=== PATIENT | female | born 1995 | race Caucasian/White ===

== ENCOUNTER 2023-01-31 10:17 | Emergency (ER) | payer OTHER, SELFPAY ==
--- NOTE | ~2023-01-31 | CT_ITS ---
EXAMINATION: CT ABDOMEN AND PELVIS WITH CONTRAST CLINICAL INFORMATION: Abdominal pain. Crohn's disease. COMPARISON: None TECHNIQUE: Multidetector volumetric images were obtained from the superior aspect of the liver through the pubic symphysis following administration 85 mL of Omnipaque 350 intravenous contrast. Sagittal and coronal reformatted images were obtained on the technologist's workstation. Oral contrast: No This CT examination was performed using dose optimization techniques as appropriate, variously including the following: *Automated exposure control *Adjustment of mA and/or kV according to patient size (this includes techniques or standardized protocols for targeted exams where dose is matched to indication/reason for exam; i.e. extremities or head) *Use of iterative reconstruction technique DLP: 819 mGy-cm FINDINGS: LUNG BASES: The visualized lung bases are unremarkable. LIVER, GALLBLADDER, AND BILIARY TREE: The liver is normal in size, shape, and attenuation. No focal hepatic lesion or biliary ductal dilatation is present. Multiple stones in the gallbladder lumen. No wall thickening or adjacent inflammation. PANCREAS: Unremarkable. SPLEEN: Unremarkable. ADRENAL GLANDS: Unremarkable. KIDNEYS AND URETERS: The kidneys are normal in size, shape, and attenuation. No hydronephrosis, hydroureter, or calculi seen. No perinephric stranding. BLADDER: Unremarkable. GASTROINTESTINAL TRACT: The stomach is unremarkable. Normal caliber small bowel. No obstruction. No wall thickening or adjacent inflammation. Normal appendix. No colonic wall thickening or acute inflammation. Prominent stool in the right hemicolon. Decompressed left colon. No free air or free fluid. ABDOMINAL WALL: No significant hernia is appreciated. LYMPH NODES: Normal. VASCULAR: Unremarkable. PELVIC VISCERA: Anteverted uterus. There is an IUD in place which appears rotated 180 degrees, with the bottom portion of the T positioned at the uterine fundus. There is a dominant right adnexal cyst measuring 4.9 cm. This appears simple. No specific follow-up recommended. OSSEOUS STRUCTURES: No acute or suspicious osseous abnormality. CT/CT abdomen pelvis w IV con IMPRESSION: 1. No acute findings in the abdomen or pelvis. No inflammatory changes. 2. Cholelithiasis without evidence for acute cholecystitis. 3. There is an IUD in place which is abnormal in positioning, appearing rotated 180 degrees. Fleischner guidelines were followed.
[2023-01-31 10:24] VITALS: BP 145/98; PULSE 103; RESP 22; TEMP 36; O2SAT 99; BMI 40.8
[2023-01-31] MEDS: Ondansetron ODT 4 MG TAB.RAPDIS TRANSLINGU (10:32)
--- OUTSIDE RECORDS SUMMARY | 2023-01-31 10:41 | XMS_ITS | Continuity of Care Document ---
:1995 Author Organization [facility] Address [address] [place] [address]- Care Team Providers Name Role Phone Ghanshyam GUERRA, Shady Primary Care Physician Encounter [facility] Date(s): 11/17/21 - 12/17/[address] [address]- Allergies, Adverse Reactions, Alerts No Known Allergies Immunizations Given and Recorded Vaccine Date Status Refusal Reason influenza virus vaccine, inactivated 09/18/21 Given influenza virus vaccine, inactivated 09/03/16 Given influenza virus vaccine, inactivated 08/22/15 Given influenza virus vaccine, inactivated 08/26/14 Given influenza virus vaccine, inactivated1 01/24/14 Given pneumococcal 13-valent vaccine 06/11/19 Given Hepatitis A Adult Vaccine 06/11/19 Given pneumococcal 23-valent vaccine 08/03/14 Given tetanus/diphtheria/pertussis, acel(Tdap)2 07/05/13 Given tetanus/diphtheria/pertussis, acel(Tdap) 05/23/07 Recorde d Varicella Virus Vaccine 06/19/09 Recorded Varicella Virus Vaccine 10/22/99 Recorded Meningitis C Vaccine (oldterm) 05/29/08 Recorded Human Papillomavirus Vaccine 01/23/08 Recorded Human Papillomavirus Vaccine 07/25/07 Recorded Human Papillomavirus Vaccine 05/23/07 Recorded Tetanus Toxoid 07/08/04 Recorded Measles/Mumps/Rubella Virus Vaccine 05/04/00 Recorded Measles/Mumps/Rubella Virus Vaccine 08/16/96 Recorded Poliovirus Vaccine, Inactivated 05/01/99 Recorded Poliovirus Vaccine, Inactivated 12/03/96 Recorded Poliovirus Vaccine, Inactivated 95 Recorded Poliovirus Vaccine, Inactivated 95 Recorded Poliovirus Vaccine, Inactivated 95 Recorded diphtheria/tetanus/pertussis, acel(DTaP) 05/01/99 Recorde d diphtheria/tetanus/pertussis, acel(DTaP) 12/03/96 Recorde d diphtheria/tetanus/pertussis, acel(DTaP) 95 Recorde d diphtheria/tetanus/pertussis, acel(DTaP) 95 Recorde d diphtheria/tetanus/pertussis, acel(DTaP) 95 Recorde d haemophilus b conjugate (PRP-T) vaccine 08/16/96 Recorded haemophilus b conjugate (PRP-T) vaccine 95 Recorded haemophilus b conjugate (PRP-T) vaccine 95 Recorded haemophilus b conjugate (PRP-T) vaccine 95 Recorded hepatitis B pediatric vaccine 07/04/96 Recorded hepatitis B pediatric vaccine 95 Recorded hepatitis B pediatric vaccine 95 Recorded 1Result Comment: [01/24/2014] vaccine given by Esperanza Stephens2Aradhames Note: VIS given-12/14/2011 Medications albuterol CFC free 90 mcg/inh inhalation aerosol 2, puffs, Inhalation, 4 times a day, PRN, # 1 each, Refills 1, Tot. Refills 1, Maintenance, :44:00 EDT, Aerosol, Route to Pharmacy Electronically, [id number], [facility]/pharmacy #[id number], 163, cm, 09/18/21 9:36:00 EDT, Viktor... Start Date: 09/18/21 Stop Date: 11/17/21 Status: Orderedferrous sulfate 325 mg oral tablet 1 tablet = 325 mg, By Mouth, Daily, # 90 tablet, 3 Refills, Maintenance, 04/23/21 11:53:00 EDT, Tablet, [facility]/pharmacy #[id number], 163, cm, 03/17/21 13:26:00 EDT, Height, 103.2, kg, 09/05/20 15:56:00 EDT, DryWeight Start Date: 04/23/21 Status: OrderedHumira Pen 40 mg/0.4 mL subcutaneous kit = 40 mg, Subcutaneous Injection, Every 14 days, # 2 each, 8 Refills, Maintenance, 08/07/21 14:11:00 EDT, [facility], Partial fill upon patient request if the prescription is for a schedule II opioid drug., 163, cm, 06/10/21 14:01:00 E... Start Date: 08/07/21 Status: OrderedRyanmi Pen Crohns/Ulcer Colitis/Hidradenitis Suppurativa Starterr Pack 80 mg/0.8 mL subcutaneous ki See Instructions, 160mg on day 1 then 80mg on day 15 then 40mg q14 days starting day 29, # 3 each, 0Refills, Maintenance, 03/24/21 13:38:00 EDT, [facility], Partial fill upon patient request if the prescription is for a schedule II o... Start Date: 03/24/21 Status: OrderedInfliximab = 5 mg/kg, IV Infusion, Every 8 Weeks, 0 Refills, Maintenance, 01/13/21 11:46:00 EST, Partial fill upon patient request if the prescription is for a schedule II opioid drug. Start Date: 01/13/21 Status: Orderedmontelukast 10 mg oral tablet 10 mg, 1, tablet, By Mouth, Daily in PM, # 30 tablet, Refills 1, Tot. Refills 1, Maintenance, 05/27/20 9:58:00 EDT, Route to Pharmacy Electronically, [facility]/pharmacy #[id number], 163, cm, 05/02/20 11:25:00 EDT,Height, 100, kg, 05/02/20 8:23:00 EDT, Dry Weight Start Date: 05/27/20 Stop Date: 07/26/20 Status: Ordered Problem List Condition Effective Dates Status Health Status Informant Asthma-Mild intermittent(Confirmed)1 Active Obesity, Class II, BMI 35-39.9, no Active comorbidity(Confirmed) Contraception management(Confirmed) Active Crohn's disease(Confirmed)2, 3 Active History of delivery(Confirmed) Active History of pre-eclampsia(Confirmed) Active Urticaria(Confirmed) Active 1Exercise induced, as confirmed by PFTs on Gastroenterology 150:734 (2016): IBD and [id number] and Gynecology 126:401 (07/05) Social History Social History Type Response Smoking Status Never smoker entered on: 02/18/15 Sex
--- OUTSIDE RECORDS SUMMARY | 2023-01-31 10:41 | XMS_ITS | Continuity of Care Document ---
:1995 Author Organization [facility] Address [address] [place] [address]- Care Team Providers Name Role Phone Dandre Sheppard MD Primary Care Physician Encounter [facility] Date(s): 03/06/20 - 03/13/20 [facility] [address] [place] [address] Attending Physician: Apollo PAULA, Ankit Referring Physician: Dandre Sheppard MD Allergies, Adverse Reactions, Alerts Substance Reaction Severity Status NKA Active Immunizations Given and Recorded Vaccine Date Status Refusal Reason pneumococcal 13-valent vaccine 06/11/19 Given Hepatitis A Adult Vaccine 06/11/19 Given influenza virus vaccine, inactivated 09/03/16 Given influenza virus vaccine, inactivated 08/22/15 Given influenza virus vaccine, inactivated 08/26/14 Given influenza virus vaccine, inactivated1 01/24/14 Given pneumococcal 23-valent vaccine 08/03/14 Given tetanus/diphtheria/pertussis, [...] each, Refills 1, Tot. Refills 1, Maintenance, 199:30:53 EDT, Aerosol, Route to Pharmacy Electronically, [id number], [facility]/pharmacy #[id number] Start Date: 06/11/19 Stop Date: 08/10/19 Status: OrderedApri 0.15 mg-0.03 mg oral tablet 1 tablet, By Mouth, Daily, # 28 tablet, 2 Refills, Maintenance, 08/15/18 11:30:46 EDT, Tablet, 1 tablet By Mouth Daily Start Date: 08/15/18 Status: Orderedcopper intrauteral device See Instructions, Plz dispense one Paragard for insertion in office, # 1 applicator, 0 Refills, Maintenance, 05/22/18 10:04:00 EDT, Plz dispense one Paragard for insertion in office Start Date: 05/22/18 Status: Orderedferrous sulfate 325 mg oral tablet 1 tablet = 325 mg, By Mouth, 2 times a day, # 100 tablet, 1 Refills, Maintenance, 06/11/19 18:43:26 EDT, Tablet Start Date: 06/11/19 Stop Date: 09/19/19 Status: OrderedGolytely - oral powder for reconstitution 240 mL, By Mouth, Every 10 minutes, # 4,000 mL, 0 Refills, Maintenance, 07/31/19 10:59:16 EDT, REC Powder, 240 mL By Mouth Every 10 minutes Start Date: 07/31/19 Status: Orderedmontelukast 10 mg oral tablet 10 mg, 1, tablet, By Mouth, Daily in PM, # 30 tablet, Refills 1, Tot. Refills 1, Maintenance, 06/11/19 9:31:17 EDT, Route to Pharmacy Electronically, [id number], [facility]/pharmacy #[id number] Start Date: 06/11/19 Stop Date: 08/10/19 Status: Ordered Problem List Condition Effective Dates Status Health Status Informant Asthma-Mild intermittent(Confirmed)1 Active Contraception management(Confirmed) Active Crohn's disease(Confirmed)2, 3 Active History of delivery(Confirmed) Active History of pre-eclampsia(Confirmed) Active 1Exercise induced, as confirmed by PFTs on Gastroenterology 150:734 (2016): IBD and [id number] and Gynecology 126:401 (07/05) Social History Social History Type Response Smoking Status Never smoker entered on: 02/18/15 Sex
--- OUTSIDE RECORDS SUMMARY | 2023-01-31 10:42 | XMS_ITS | Continuity of Care Document ---
:1995 Author Organization [facility] Address [address] [place] [address]- Care Team Providers Name Role Phone Ghanshyam GUERRA, Shady Primary Care Physician Encounter [facility] Date(s): 02/22/22 - 03/24/[address] [address]- Attending Physician: Sebastián Zavala Admitting Physician: AdmSebastián hammer Referring Physician: AdmtrSebastián Allergies, Adverse Reactions, Alerts No Known Allergies [...] each, Refills 1, Tot. Refills 1, Maintenance, 02/22/2210:36:00 EDT, Aerosol, Route to Pharmacy Electronically, [id number], [facility]/pharmacy #[id number], 163, cm, 02/22/22 10:24:00 EDT, Hei... Start Date: 02/22/22 Stop Date: 04/23/22 Status: Orderedferrous sulfate 325 mg oral tablet 1 tablet = 325 mg, By Mouth, Daily, # 90 tablet, 3 Refills, Maintenance, 04/23/21 11:53:00 EDT, Tablet, [facility]/pharmacy #[id number], 163, cm, 03/17/21 13:26:00 EDT, Height, 103.2, kg, 09/05/20 15:56:00 EDT, DryWeight Start Date: 04/23/21 Status: OrderedHumira Pen 40 mg/0.4 mL subcutaneous kit = 40 mg, Subcutaneous Injection, Every 14 days, # 2 each, 8 Refills, Maintenance, 08/07/21 14:11:00 EDT, [facility], Partial fill upon patient request if the prescription is for a schedule II opioid drug., 163, cm, 06/10/21 14:01:00 E... Start Date: 08/07/21 Status: OrderedHumira Pen Crohns/Ulcer Colitis/Hidradenitis Suppurativa Starterr Pack 80 mg/0.8 mL subcutaneous ki See Instructions, 160mg on day 1 then 80mg on day 15 then 40mg q14 days starting day 29, # 3 each, 0Refills, Maintenance, 03/24/21 13:38:00 EDT, [facility], Partial fill upon patient [...] 05/27/20 9:58:00 EDT, Route to Pharmacy Electronically, [facility]/pharmacy #[id number], 163, cm, 05/02/20 11:25:00 EDT,Height, 100, kg, 05/02/20 8:23:00 EDT, Dry Weight Start Date: 05/27/20 Stop Date: 07/26/20 Status: Ordered Problem List Condition Effective Dates Status Health Status Informant Asthma-Mild intermittent(Confirmed)1 Active Obesity, Class II, BMI 35-39.9, no Active comorbidity(Confirmed) Contraception management(Confirmed) Active Crohn's disease(Confirmed)2, 3 Active History of delivery(Confirmed) Active History of pre-eclampsia(Confirmed) Active Obese class II(Confirmed) Active Urticaria(Confirmed) Active 1Exercise induced, as confirmed by PFTs on Gastroenterology 150:734 (2016): IBD and [id number] and Gynecology 126:401 (07/05) Social History Social History Type Response Smoking Status Never smoker entered on: 02/18/15 Sex
--- OUTSIDE RECORDS SUMMARY | 2023-01-31 10:42 | XMS_ITS | Continuity of Care Document ---
:1995 Author Organization [facility] Address [address] [place] [address]- Care Team Providers Name Role Phone Dandre Sheppard MD Primary Care Physician Encounter [facility] Date(s): 06/11/20 - 08/10/[address] [address]- [facility] Attending Physician: Ankit Bustillos MD Admitting Physician: Ankit Bustillos MD Referring Physician: Ankit Bustillos MD Allergies, Adverse Reactions, Alerts Substance Reaction [...] 199:30:53 EDT, Aerosol, Route to Pharmacy Electronically, [id number], [facility]/pharmacy #[id number] Start Date: 06/11/19 Stop Date: 08/10/19 Status: OrderedApri 0.15 mg-0.03 mg oral tablet 1 tablet, By Mouth, Daily, # 28 tablet, 2 Refills, Maintenance, 08/15/18 11:30:46 EDT, Tablet, 1 tablet By Mouth Daily Start Date: 08/15/18 Status: OrderedColace 2-in-1 50 mg-8.6 mg oral tablet 1 tablet, By Mouth, Daily at bedtime, # 90 tablet, 0 Refills, Maintenance, 03/18/20 13:49:00 EDT, [facility]/pharmacy #[id number], 1 tablet By Mouth Daily at bedtime, 163, cm, 12/17/19 7:51:00 EST, Height, 100, kg,12/17/19 7:51:00 EST, Dry Weight Start Date: 03/18/20 Status: OrderedColace sodium 100 mg oral capsule 100 mg, 1, capsule, By Mouth, Daily, # 30 capsule, Refills 0, Tot. Refills 0, Maintenance, 03/18/20 13:41:00 EDT, Route to Pharmacy Electronically, [facility]/pharmacy #[id number], 163, cm, 12/17/19 7:51:00 EST, Height, 100, kg, 12/17/19 7:51:00 EST, Dry Weight Start Date: 03/18/20 Status: Orderedcopper intrauteral device See Instructions, Plz dispense one Paragard for insertion in office, # 1 applicator, 0 Refills, Maintenance, 05/22/18 10:04:00 EDT, Plz dispense one Paragard for insertion in office Start Date: 05/22/18 Status: Orderedferrous sulfate 325 mg oral tablet 1 tablet = 325 mg, By Mouth, Daily, # 90 tablet, 1 Refills, Maintenance, 03/18/20 13:41:00 EDT, Tablet, [facility]/pharmacy #[id number], 163, cm, 12/17/19 7:51:00 EST, Height, 100, kg, 12/17/19 7:51:00 EST, Dry Weight Start Date: 03/18/20 Stop Date: 06/26/20 Status: OrderedGolytely - oral powder for reconstitution [...] 05/27/20 9:58:00 EDT, Route to Pharmacy Electronically, [facility]/pharmacy #[id number], 163, cm, 05/02/20 11:25:00 EDT,Height, 100, kg, 05/02/20 8:23:00 EDT, Dry Weight Start Date: 05/27/20 Stop Date: 07/26/20 Status: Ordered Problem List Condition Effective Dates Status Health Status Informant Asthma-Mild intermittent(Confirmed)1 Active Contraception management(Confirmed) Active Crohn's disease(Confirmed)2, 3 Active History of delivery(Confirmed) Active History of pre-eclampsia(Confirmed) Active 1Exercise induced, as confirmed by PFTs on Gastroenterology 150:734 (2016): IBD and [id number] and Gynecology 126:401 (07/05) Social History Social History Type Response Smoking Status Never smoker entered on: 02/18/15 Sex
--- OUTSIDE RECORDS SUMMARY | 2023-01-31 10:42 | XMS_ITS | Continuity of Care Document ---
:1995 Author Organization [facility] Address [address] [place] [address]- Care Team Providers Name Role Phone Valarie PAULA, Dandre Seymour Primary Care Physician Encounter [facility] Date(s): 06/12/20 - 07/12/[address] [address]- [facility] Allergies, Adverse Reactions, Alerts Substance Reaction Severity [...] 1Result Comment: [01/24/2014] vaccine given by Esperanza Stephens2Admin Note: VIS given-12/14/2011 Medications albuterol CFC free 90 mcg/inh inhalation aerosol 2, puffs, Inhalation, 4 times a day, PRN, # 1 each, Refills 1, Tot. Refills 1, Maintenance, 199:30:53 EDT, Aerosol, Route to Pharmacy Electronically, [id number], [facility]/pharmacy #[id number] Start Date: 06/11/19 Stop Date: 08/10/19 Status: OrderedApri 0.15 mg-0.03 mg oral tablet 1 tablet, By Mouth, Daily, # 28 tablet, 2 Refills, Maintenance, 08/15/18 11:30:46 EDT, Tablet, 1 tablet By Mouth Daily Start Date: 08/15/18 Status: OrderedColace 2-in-1 50 mg-8.6 mg oral tablet 1 tablet, By Mouth, Daily at bedtime, # 90 tablet, 0 Refills, Maintenance, 03/18/20 13:49:00 EDT, [facility]/pharmacy #[id number], 1 tablet By Mouth Daily at bedtime, 163, cm, 12/17/19 7:51:00 EST, Height, 100, kg,12/17/19 7:51:00 EST, Dry Weight Start Date: 03/18/20 Status: OrderedColace sodium 100 mg oral capsule 100 mg, 1, capsule, By Mouth, Daily, # 30 capsule, Refills 0, Tot. Refills 0, Maintenance, 03/18/20 13:41:00 EDT, [id number], 163, cm, 12/17/19 7:51:00 EST, Height, [...] 1 Refills, Maintenance, 03/18/20 13:41:00 EDT, Tablet, [facility]/pharmacy #[id number], 163, cm, 12/17/19 7:51:00 EST, Height, [...] 05/27/20 9:58:00 EDT, Route to Pharmacy Electronically, [facility]/pharmacy #[id number], 163, cm, 05/02/20 11:25:00 EDT,Height, 100, kg, 05/02/20 8:23:00 EDT, Dry Weight Start Date: 05/27/20 Stop Date: 07/26/20 Status: Ordered Problem List Condition Effective Dates Status Health Status Informant Asthma-Mild intermittent(Confirmed)1 Active Contraception management(Confirmed) Active Crohn's disease(Confirmed)2, 3 Active History of delivery(Confirmed) Active History of pre-eclampsia(Confirmed) Active 1Exercise induced, as confirmed by PFTs on Gastroenterology 150:734 (2015): IBD and zdoelsskz1Pihwscpvtb and Gynecology 126:401 (07/05) Social History Social History Type Response Smoking Status Never smoker entered on: 02/18/15 Sex
--- OUTSIDE RECORDS SUMMARY | 2023-01-31 10:42 | XMS_ITS | Continuity of Care Document ---
:1995 Author Organization [facility] Address [address] [place] [address]- Care Team Providers Name Role Phone Ghanshyam GUERRA, Shady Primary Care Physician Encounter [facility] Date(s): 11/17/21 - 12/17/[address] [address]- Allergies, Adverse Reactions, Alerts No Known Allergies [...] 1Result Comment: [01/24/2014] vaccine given by Esperanza Alvarez Note: VIS given-12/14/2011 Medications albuterol CFC free 90 mcg/inh inhalation aerosol 2, puffs, Inhalation, 4 times a day, PRN, # 1 each, Refills 1, Tot. Refills 1, Maintenance, :44:00 EDT, Aerosol, Route to Pharmacy Electronically, [id number], [facility]/pharmacy #[id number], 163, cm, 09/18/21 9:36:00 EDT, Viktor... Start Date: 09/18/21 Stop Date: 11/17/21 Status: Orderedferrous sulfate 325 mg oral tablet 1 tablet = 325 mg, By Mouth, Daily, # 90 tablet, 3 Refills, Maintenance, 04/23/21 11:53:00 EDT, Tablet, [facility]/pharmacy #[id number], 163, cm, 03/17/21 13:26:00 EDT, Height, 103.2, kg, 09/05/20 15:56:00 EDT, DryWeight Start Date: 04/23/21 Status: OrderedHumira Pen 40 mg/0.4 mL subcutaneous kit = 40 mg, Subcutaneous Injection, Every 14 days, # 2 each, 8 Refills, Maintenance, 08/07/21 14:11:00 EDT, [facility], Partial fill upon patient request if the prescription is for a schedule II opioid drug., 163, cm, 06/10/21 14:01:00 E... Start Date: 08/07/21 Status: OrderedHumi Pen Crohns/Ulcer Colitis/Hidradenitis Suppurativa Starterr Pack 80 mg/0.8 mL subcutaneous ki See Instructions, 160mg on day 1 then 80mg on day 15 then 40mg q14 days starting day 29, # 3 each, 0Refills, Maintenance, 03/24/21 13:38:00 EDT, [facility], Partial fill upon patient [...] 05/27/20 9:58:00 EDT, Route to Pharmacy Electronically, [facility]/pharmacy #[id number], 163, cm, 05/02/20 11:25:00 EDT,Height, 100, [...] PFTs on Gastroenterology 150:734 (2016): IBD and [id number] and Gynecology 126:401 (07/05) Social History Social History Type Response Smoking Status Never smoker entered on: 02/18/15 Sex
--- OUTSIDE RECORDS SUMMARY | 2023-01-31 10:42 | XMS_ITS | Continuity of Care Document ---
:1995 Author Organization [facility] Address [address] [place] [address]- Care Team Providers Name Role Phone Shady Morrissey NP Primary Care Physician Encounter [facility] [place] Date(s): 10/18/22 - 11/17/22 [facility] [address] [place] [address]- Attending Physician: Sebastián Zavala Admitting Physician: Sebastián Zavala Referring Physician: Sebastián Zavala Allergies, Adverse Reactions, Alerts No Known Allergies [...] 02/22/2210:36:00 EDT, Aerosol, Route to Pharmacy Electronically, [id number], [facility]/pharmacy #[id number], 163, cm, 02/22/22 10:24:00 EDT, Hei... Start Date: 02/22/22 Stop Date: 04/23/22 Status: Orderedferrous sulfate 325 mg oral tablet 1 tablet = 325 mg, By Mouth, Daily, # 90 tablet, 3 Refills, Maintenance, 04/23/21 11:53:00 EDT, Tablet, [facility]/pharmacy #[id number], 163, cm, 03/17/21 13:26:00 EDT, Height, 103.2, kg, 09/05/20 15:56:00 EDT, DryWeight Start Date: 04/23/21 Status: OrderedHumira Pen 40 mg/0.4 mL subcutaneous kit = 40 mg, Subcutaneous Injection, Every 14 days, # 2 each, 3 Refills, Maintenance, 07/22/22 17:42:00 EDT, [facility], Partial fill upon patient request if the prescription is for a schedule II opioid drug., 163, cm, 02/22/22 10:24:00 E... Start Date: 07/22/22 Status: OrderedHumira Pen Crohns/Ulcer Colitis/Hidradenitis Suppurativa Starterr Pack 80 mg/0.8 mL subcutaneous ki See Instructions, 160mg on day 1 then 80mg on day 15 then 40mg q14 days starting day 29, # 3 each, 0Refills, Maintenance, 03/24/21 13:38:00 EDT, [facility], Partial fill upon patient [...] 05/27/20 9:58:00 EDT, Route to Pharmacy Electronically, [facility]/pharmacy #[id number], 163, cm, 05/02/20 11:25:00 EDT,Height, 100, kg, 05/02/20 8:23:00 EDT, Dry Weight Start Date: 05/27/20 Stop Date: 07/26/20 Status: Orderedomeprazole 20 mg oral enteric coated capsule 1 capsule = 20 mg, By Mouth, Daily, # 30 capsule, 0 Refills, Maintenance, 09/16/22 17:40:00 EDT, EC Capsule, [facility]/pharmacy #[id number], Partial fill upon patient request if the prescription is for a schedule II opioid drug., 163, cm, 09/16/22 17:38:00 EDT, H... Start Date: 09/16/22 Stop Date: 10/16/22 Status: Ordered Problem List Condition Confirmation Course Effective Dates Status Health I nformant Status Asthma-Mild Confirmed Active intermittent1 Obesity, Class II, Confirmed Active BMI 35-39.9, no comorbidity Contraception Confirmed Active management Crohn's disease2, 3 Confirmed Active History of Confirmed Active delivery History of Confirmed Active pre-eclampsia Obese class II Confirmed Active Urticaria Confirmed Active 1Exercise induced, as confirmed by PFTs on Gastroenterology 150:734 (2016): IBD and lnsudlfwn1Remczfbhoz and Gynecology 126:401 (07/05) Vital Signs Most recent to oldest [Reference Range]: 1 2 Oxygen Saturation [94-100 %] 100 % 100 % (07/21/17 11:07 AM) (07/21/17 8:06 AM) Pulse Rate [55-90 bpm] 91 bpm 94 bpm *H* *H* (07/21/17 11:07 AM) (07/21/17 8:06 AM) Blood Pressure [90-138/55-84 mm Hg] 117/70 mm Hg 124/ 83 mm Hg (07/21/17 11:07 AM) (07/21/17 8:06 AM) Respiratory Rate [16-30 br/min] 20 br/min 20 br/mi n (07/21/17 11:07 AM) (07/21/17 8:06 AM) Temperature [96.8-100.4 DegF] 97.9 DegF 98.2 DegF (07/21/17 11:07 AM) (07/21/17 8:06 AM) Mode of Delivery (Oxygen) Room air Room air (07/21/17 11:07 AM) (07/21/17 8:06 AM) Blood pressure sites Arm, right Arm, right (07/21/17 11:07 AM) (07/21/17 8:06 AM) Temperature Route Oral Oral (07/21/17 11:07 AM) (07/21/17 8:06 AM) Social History Social History Type Response Smoking Status Never smoker entered on: 02/18/15 Sex Note Event Display: Non BH Lab Results Authored Date: Patient Care team information Care Team PersonnelName: Shady Morrissey NP Position: [facility] Associate Professional Member Role: PCP Address: Address: [address] [place] [address] Name: Tiffanie Delaney RN Position: S RN Member Role: Primary Care Nurse Name: Lynn Blair LPN Position: [facility] OB RN Member Role: Primary Care Nurse Name: Cherie Vences RN Position: [facility] RN Supv Member Role: Primary Care Nurse Name: Farzana Cruz Position: [facility] OB RN Member Role: Primary Care Nurse Name: Vita Jacobo RN Position: S RN Member Role: Primary Care Nurse Name: Alex Diaz Position: S RN Member Role: Primary Care Nurse Name: Melany Brenner RN Position: [facility] RN Member Role: Primary Care Nurse Name: Helen Johnson RN Position: [facility] RN Member Role: Primary Care Nurse Care Team Related PersonsName: MARVA SINGH Address: [id number] Address: [address] [place] [address] [place] Name: ASPEN RODRÍGUEZ Address: home [place] [id number] Name: VITA BUNN Address: home [address] [address]
--- OUTSIDE RECORDS SUMMARY | 2023-01-31 10:42 | XMS_ITS | Continuity of Care Document ---
:1995 Author Organization [facility] Address [address] [place] [address]- Care Team Providers Name Role Phone Valarie PAULA, Dandre Seymour Primary Care Physician Encounter [facility] Date(s): 11/23/19 - 02/24/[address] [address]- [facility] Attending Physician: Michael Sheth MD Admitting Physician: Michael Sheth MD Referring Physician: Michael Sheth MD Allergies, Adverse Reactions, Alerts Substance Reaction [...] 199:30:53 EDT, Aerosol, Route to Pharmacy Electronically, [id number], [facility]/pharmacy #[id number] Start Date: 06/11/19 Stop Date: 08/10/19 [...] 06/11/19 9:31:17 EDT, Route to Pharmacy Electronically, [id number], [facility][id number] Start Date: 06/11/19 Stop Date: 08/10/19 Status: Ordered Problem List Condition Effective Dates Status Health Status Informant Asthma-Mild intermittent(Confirmed)1 Active Contraception management(Confirmed) Active Crohn's disease(Confirmed)2, 3 Active History of delivery(Confirmed) Active History of pre-eclampsia(Confirmed) Active 1Exercise induced, as confirmed by PFTs on Gastroenterology 150:734 (2016): IBD and zsdgzqvsw1Izckngvdpl and Gynecology 126:401 (07/05) Social History Social History Type Response Smoking Status Never smoker entered on: 02/18/15 Sex
--- OUTSIDE RECORDS SUMMARY | 2023-01-31 10:42 | XMS_ITS | Continuity of Care Document ---
:1995 Author Organization [facility] Address [address] [place] [address]- Care Team Providers Name Role Phone Ghanshyam UGERRA, Shady Primary Care Physician Encounter [facility] Date(s): 03/25/21 - 04/24/[address] [address]- Allergies, Adverse Reactions, Alerts Substance Reaction Severity [...] 199:30:53 EDT, Aerosol, Route to Pharmacy Electronically, [id number], [facility]/pharmacy #[id number] Start Date: 06/11/19 Stop Date: 08/10/19 Status: OrderedApri 0.15 mg-0.03 mg oral tablet 1 tablet, By Mouth, Daily, # 28 tablet, 2 Refills, Maintenance, 08/15/18 11:30:46 EDT, Tablet, 1 tablet By Mouth Daily Start Date: 08/15/18 Status: OrderedColace 2-in-1 50 mg-8.6 mg oral tablet 1 tablet, By Mouth, Daily at bedtime, # 90 tablet, 0 Refills, Maintenance, 03/18/20 13:49:00 EDT, [facility]/pharmacy #[id number], 1 tablet By Mouth Daily at bedtime, 163, cm, 12/17/19 7:51:00 EST, Height, 100, kg,12/17/19 7:51:00 EST, Dry Weight Start Date: 03/18/20 Status: OrderedColace sodium 100 mg oral capsule 100 mg, 1, capsule, By Mouth, Daily, # 30 capsule, Refills 0, Tot. Refills 0, Maintenance, 03/18/20 13:41:00 EDT, Route to Pharmacy Electronically, [facility]/pharmacy #[id number], 163, cm, 12/17/19 7:51:00 EST, Height, [...] 3 Refills, Maintenance, 04/23/21 11:53:00 EDT, Tablet[id number] 163, cm, 03/17/21 13:26:00 EDT, Height, 103.2, kg, 09/05/20 15:56:00 EDT, DryWeight Start Date: 04/23/21 Status: OrderedHumira Pen 40 mg/0.4 mL subcutaneous kit = 40 mg, Subcutaneous Injection, Every 14 days, # 2 each, 5 Refills, Maintenance, 03/24/21 13:38:00 EDT, [facility], Partial fill upon patient request if the prescription is for a schedule II opioid drug., 163, cm, 03/17/21 13:26:00 E... Start Date: 03/24/21 Status: OrderedHumira Pen Crohns/Ulcer Colitis/Hidradenitis Suppurativa Starterr Pack 80 mg/0.8 mL subcutaneous ki See Instructions, 160mg on day 1 then 80mg on day 15 then 40mg q14 days starting day 29, # 3 each, 0Refills, Maintenance, 03/24/21 13:38:00 EDT, [facility], Partial fill upon [...] 05/27/20 9:58:00 EDT, Route to Pharmacy Electronically, [facility]/pharmacy #[id number], 163, cm, 05/02/20 11:25:00 EDT,Height, 100, kg, 05/02/20 8:23:00 EDT, Dry Weight Start Date: 05/27/20 Stop Date: 07/26/20 Status: Ordered Problem List Condition Effective Dates Status Health Status Informant Asthma-Mild intermittent(Confirmed)1 Active Contraception management(Confirmed) Active Crohn's disease(Confirmed)2, 3 Active History of delivery(Confirmed) Active History of pre-eclampsia(Confirmed) Active Urticaria(Confirmed) Active 1Exercise induced, as confirmed by PFTs on Gastroenterology 150:734 (2016): IBD and xmmrjxjkn1Xspweqaaon and Gynecology 126:401 (07/05) Social History Social History Type Response Smoking Status Never smoker entered on: 02/18/15 Sex
--- OUTSIDE RECORDS SUMMARY | 2023-01-31 10:42 | XMS_ITS | Continuity of Care Document ---
:1995 Author Organization [facility] Address [address] [place] [address]- Care Team Providers Name Role Phone Ghanshyam GUERRA, Shady Primary Care Physician Encounter [facility] Date(s): 06/12/21 - 07/12/21 [facility] [address] [place] [address]- Allergies, Adverse Reactions, Alerts Substance Reaction Severity [...] each, Refills 1, Tot. Refills 1, Maintenance, :30:53 EDT, Aerosol, Route to Pharmacy Electronically, [id number], [facility]/pharmacy #[id number] Start Date: 06/11/19 Stop Date: 08/10/19 Status: Orderedferrous sulfate 325 mg oral tablet 1 tablet = 325 mg, By Mouth, Daily, # 90 tablet, 3 Refills, Maintenance, 04/23/21 11:53:00 EDT, Tablet, [facility]/pharmacy #[id number], 163, cm, 03/17/21 13:26:00 EDT, Height, 103.2, kg, 09/05/20 15:56:00 EDT, DryWeight Start Date: 04/23/21 Status: OrderedHumira Pen 40 mg/0.4 mL subcutaneous kit = 40 mg, Subcutaneous Injection, Every 14 days, # 2 each, 5 Refills, Maintenance, 03/24/21 13:38:00 EDT, [facility] [...] 05/27/20 9:58:00 EDT, Route to Pharmacy Electronically, [facility]/pharmacy #[id number], 163, cm, 05/02/20 11:25:00 EDT,Height, 100, kg, 05/02/20 8:23:00 EDT, Dry Weight Start Date: 05/27/20 Stop Date: 07/26/20 Status: Ordered Problem List Condition Effective Dates Status Health Status Informant Asthma-Mild intermittent(Confirmed)1 Active Contraception management(Confirmed) Active Crohn's disease(Confirmed)2, 3 Active History of delivery(Confirmed) Active History of pre-eclampsia(Confirmed) Active Urticaria(Confirmed) Active 1Exercise induced, as confirmed by PFTs on Gastroenterology 150:734 (2016): IBD and vjytzsvps4Ylzuqcedtl and Gynecology 126:401 (07/05) Social History Social History Type Response Smoking Status Never smoker entered on: 02/18/15 Sex
--- OUTSIDE RECORDS SUMMARY | 2023-01-31 10:42 | XMS_ITS | Continuity of Care Document ---
:1995 Author Organization [facility] Address [address] [place] [address]- Care Team Providers Name Role Phone Ghanshyam GUERRA, Shady Primary Care Physician Encounter [facility] Date(s): 06/10/21 - 07/10/[address] [address]- Attending Physician: Sebastián Zavala Admitting Physician: AdmtrSebastián Referring Physician: Admtr, Sebastián Allergies, Adverse Reactions, Alerts Substance Reaction Severity [...] :30:53 EDT, Aerosol, Route to Pharmacy Electronically, [id number], [facility]/pharmacy #[id number] Start Date: 06/11/19 Stop Date: 08/10/19 Status: Orderedferrous sulfate 325 mg oral tablet 1 tablet = 325 mg, By Mouth, Daily, # 90 tablet, 3 Refills, Maintenance, 04/23/21 11:53:00 EDT, Tablet, [facility]/pharmacy #[id number], 163, cm, 03/17/21 13:26:00 EDT, Height, 103.2, kg, 09/05/20 15:56:00 EDT, DryWeight Start Date: 04/23/21 Status: OrderedHumira Pen 40 mg/0.4 mL subcutaneous kit = 40 mg, Subcutaneous Injection, Every 14 days, # 2 each, 5 Refills, Maintenance, 03/24/21 13:38:00 EDT, [facility], Partial fill upon patient request [...] each, 0Refills, Maintenance, 03/24/21 13:38:00 EDT, [facility], Partial fill upon patient [...] 05/27/20 9:58:00 EDT, Route to Pharmacy Electronically, [facility]/pharmacy #[id number], 163, cm, 05/02/20 [...] PFTs on Gastroenterology 150:734 (2016): IBD and ejrusknku1Ntgojppzgs and Gynecology 126:401 (07/05) Social History Social History Type Response Smoking Status Never smoker entered on: 02/18/15 Sex
--- OUTSIDE RECORDS SUMMARY | 2023-01-31 10:42 | XMS_ITS | Continuity of Care Document ---
:1995 Author Organization [facility] Address [address] [place] [address]- Care Team Providers Name Role Phone Shady Morrissey NP Primary Care Physician Encounter [facility] Date(s): 01/13/21 - 02/12/21 [facility] [address] [place] [address] Attending Physician: Sebastián Zavala Admitting Physician: Sebastián Zavala Referring Physician: AdmtrSebastián Allergies, Adverse Reactions, Alerts Substance Reaction Severity [...] :30:53 EDT, Aerosol, Route to Pharmacy Electronically, [id number], [facility]/pharmacy #[id number] Start Date: 06/11/19 Stop Date: 08/10/19 Status: OrderedApri 0.15 mg-0.03 mg oral tablet 1 tablet, By Mouth, Daily, # 28 tablet, 2 Refills, Maintenance, 08/15/18 11:30:46 EDT, Tablet, 1 tablet By Mouth Daily Start Date: 08/15/18 Status: OrderedColace 2-in-1 50 mg-8.6 mg oral tablet 1 tablet, By Mouth, Daily at bedtime, # 90 tablet, 0 Refills, Maintenance, 03/18/20 13:49:00 EDT, [facility]/pharmacy #[id number], 1 tablet By Mouth Daily at bedtime, 163, cm, 12/17/19 7:51:00 EST, Height, 100, kg,12/17/19 7:51:00 EST, Dry Weight Start Date: 03/18/20 Status: OrderedColace sodium 100 mg oral capsule 100 mg, 1, capsule, By Mouth, Daily, # 30 capsule, Refills 0, Tot. Refills 0, Maintenance, 03/18/20 13:41:00 EDT, Route to Pharmacy Electronically, [facility]/pharmacy #[id number], 163, cm, 12/17/19 7:51:00 EST, [...] Refills, Maintenance, 03/18/20 13:41:00 EDT, Tablet, [facility]/pharmacy #[id number], 163, cm, 12/17/19 7:51:00 EST, Height, 100, kg, 12/17/19 7:51:00 EST, Dry Weight Start Date: 03/18/20 Stop Date: 06/26/20 Status: OrderedInfliximab = 5 mg/kg, IV Infusion, [...] 9:58:00 EDT, Route to Pharmacy Electronically, [facility]/pharmacy #[id number], 163, cm, 05/02/20 11:25:00 EDT,Height, 100, kg, 05/02/20 8:23:00 EDT, Dry Weight Start Date: 05/27/20 Stop Date: 07/26/20 Status: Ordered Problem List Condition Effective Dates Status Health Status Informant Asthma-Mild intermittent(Confirmed)1 Active Contraception management(Confirmed) Active Crohn's disease(Confirmed)2, 3 Active History of delivery(Confirmed) Active History of pre-eclampsia(Confirmed) Active 1Exercise induced, as confirmed by PFTs on Gastroenterology 150:734 (2016): IBD and [id number] and Gynecology 126:401 (07/05) Vital Signs Most [...]
--- OUTSIDE RECORDS SUMMARY | 2023-01-31 10:42 | XMS_ITS | Continuity of Care Document ---
:1995 Author Organization [facility] Address [address] [place] [address]- Care Team Providers Name Role Phone Dandre Sheppard MD Primary Care Physician [place] [facility] [place]s): 03/18/20 - 03/25/20 [facility] [address] [place] [address]- [facility] Attending Physician: Apollo PAULA, Ankit Referring Physician: [...] 1Result Comment: [01/24/2014] vaccine given by Esperanza Stephens2Admilana Note: VIS given-12/14/2011 Medications albuterol CFC free 90 mcg/inh inhalation aerosol 2, puffs, Inhalation, 4 times a day, PRN, # 1 each, Refills 1, Tot. Refills 1, Maintenance, 199:30:53 EDT, Aerosol, Route to Pharmacy Electronically, [id number], [facility]/pharmacy #[id number] Start Date: 06/11/19 Stop [...] Refills, Maintenance, 03/18/20 13:49:00 EDT, [facility]/pharmacy #[id number], 1 tablet By Mouth Daily at bedtime, 163, cm, 12/17/19 7:51:00 EST, Height, 100, kg,12/17/19 7:51:00 EST, Dry Weight Start Date: 03/18/20 Status: OrderedColace sodium 100 mg oral capsule 100 mg, 1, capsule, By Mouth, Daily, # 30 capsule, Refills 0, Tot. Refills 0, Maintenance, 03/18/20 13:41:00 EDT, Route to Pharmacy Electronically, [facility]/pharmacy #[id number], 163, cm, 12/17/19 7:51:00 EST, Height, [...] Maintenance, 03/18/20 13:41:00 EDT, Tablet, [facility]/pharmacy #[id number], 163, cm, 12/17/19 7:51:00 EST, Height, [...] 06/11/19 9:31:17 EDT, Route to Pharmacy Electronically, [id number], [facility]/pharmacy #[id number] Start Date: 06/11/19 Stop Date: 08/10/19 Status: Ordered Problem List Condition Effective Dates Status Health Status Informant Asthma-Mild intermittent(Confirmed)1 Active Contraception management(Confirmed) Active Crohn's disease(Confirmed)2, 3 Active History of delivery(Confirmed) Active History of pre-eclampsia(Confirmed) Active 1Exercise induced, as confirmed by PFTs on Gastroenterology 150:734 (2016): IBD and kmxubwqff4Eudjjbgtvu and Gynecology 126:401 (07/05) Social History Social History Type Response Smoking Status Never smoker entered on: 02/18/15 Sex
--- OUTSIDE RECORDS SUMMARY | 2023-01-31 10:42 | XMS_ITS | Continuity of Care Document ---
:1995 Author Organization [facility] Address [address] [place] [address]- Care Team Providers Name Role Phone Shady Morrissey NP Primary Care Physician En[place] [facility] [place] Date[place]s): 07/20/22 - 11/17/22 [facility] [address] [place] [address]- Attending Physician: Michael Sheth MD Admitting Physician: Michael Sheth MD Referring Physician: Shady Morrissey NP Allergies, Adverse Reactions, Alerts No Known Allergies [...] 02/22/2210:36:00 EDT, Aerosol, Route to Pharmacy Electronically, [id number], [facility]/pharmacy #[id number], 163, cm, 02/22/22 10:24:00 EDT, Hei... Start Date: 02/22/22 Stop Date: 04/23/22 Status: Orderedferrous sulfate 325 mg oral tablet 1 tablet = 325 mg, By Mouth, Daily, # 90 tablet, 3 Refills, Maintenance, 04/23/21 11:53:00 EDT, Tablet, [facility]/pharmacy #[id number], 163, cm, 03/17/21 13:26:00 EDT, Height, 103.2, kg, 09/05/20 15:56:00 EDT, DryWeight Start Date: 04/23/21 Status: OrderedHumira Pen 40 mg/0.4 mL subcutaneous kit = 40 mg, Subcutaneous Injection, Every 14 days, # 2 each, 3 Refills, Maintenance, 07/22/22 17:42:00 EDT, [facility], Partial fill upon patient [...] 3 each, 0Refills, Maintenance, 03/24/21 13:38:00 EDT, [facility], Partial fill upon patient [...] 05/27/20 9:58:00 EDT, Route to Pharmacy Electronically, [facility]/pharmacy #[id number], 163, cm, 05/02/20 11:25:00 EDT,Height, 100, kg, 05/02/20 8:23:00 EDT, Dry Weight Start Date: 05/27/20 Stop Date: 07/26/20 Status: Orderedomeprazole 20 mg oral enteric coated capsule 1 capsule = 20 mg, By Mouth, Daily, # 30 capsule, 0 Refills, Maintenance, 09/16/22 17:40:00 EDT, EC Capsule, [facility]/pharmacy #[id number], Partial fill upon patient request if the [...] PFTs on Gastroenterology 150:734 (2016): IBD and qumenbhhb8Ljbsrvvnwy and Gynecology 126:401 (07/05) Social History Social History Type Response Smoking Status Never smoker entered on: 02/18/15 Sex Patient Care team information Care Team PersonnelName: Ghanshyam GUERRA, Shady Position: [facility] Associate Professional Member Role: PCP Address: Address: [address] [place] [address]- Name: Tiffanie Delaney RN Position: S RN Member Role: Primary Care Nurse Name: Lynn Blair LPN Position: [facility] OB RN Member Role: Primary Care Nurse Name: Cherie Vences RN Position: [facility] RN Supv Member Role: Primary Care Nurse Name: Farzana Cruz Position: [facility] OB RN Member Role: Primary Care Nurse Name: Vita Jacobo RN Position: S RN Member Role: Primary Care Nurse Name: Alex Diaz Position: S RN Member Role: Primary Care Nurse Name: Melany Brenner RN Position: S RN Member Role: Primary Care Nurse Name: Helen Johnson RN Position: [facility] RN Member Role: Primary Care Nurse Care Team Related PersonsName: MARVA SINGH Address: [address] Address: [address] [place] [address] [place] Name: RODRÍGUEZASPEN Address: home [place] [id number] Name: VITA BUNN Address: home [address] [address]
--- OUTSIDE RECORDS SUMMARY | 2023-01-31 10:42 | XMS_ITS | Continuity of Care Document ---
:1995 Author Organization [facility] Address [address] [place] [address]- Care Team Providers Name Role Phone Dandre Sheppard MD Primary Care Physician Encounter [facility] Date(s): 03/18/20 - 04/17/20 [facility] [address] [place] [address] [facility] Attending Physician: Sebastián Zavala Admitting Physician: AdmSebastián [...] 199:30:53 EDT, Aerosol, Route to Pharmacy Electronically, [id number], [facility]/pharmacy #[id number] Start Date: 06/11/19 Stop Date: 08/10/19 Status: OrderedApri 0.15 mg-0.03 mg oral tablet 1 tablet, By Mouth, Daily, # 28 tablet, 2 Refills, Maintenance, 08/15/18 11:30:46 EDT, Tablet, 1 tablet By Mouth Daily Start Date: 08/15/18 Status: OrderedColace 2-in-1 50 mg-8.6 mg oral tablet 1 tablet, By Mouth, Daily at bedtime, # 90 tablet, 0 Refills, Maintenance, 03/18/20 13:49:00 EDT, [facility]/pharmacy #[id number], 1 tablet By Mouth Daily at bedtime, 163, cm, 12/17/19 7:51:00 EST, Height, 100, kg,12/17/19 7:51:00 EST, Dry Weight Start Date: 03/18/20 Status: OrderedColace sodium 100 mg oral capsule 100 mg, 1, capsule, By Mouth, Daily, # 30 capsule, Refills 0, Tot. Refills 0, Maintenance, 03/18/20 13:41:00 EDT, Route to Pharmacy Electronically, [facility]/pharmacy #[id number], 163, cm, 12/17/19 7:51:00 EST, Height, [...] 1 Refills, Maintenance, 03/18/20 13:41:00 EDT, Tablet, [facility]/pharmacy #[id number], 163, cm, 12/17/19 7:51:00 EST, Height, [...] 06/11/19 9:31:17 EDT, Route to Pharmacy Electronically, [id number], [facility]/pharmacy #[id number] Start Date: 06/11/19 Stop Date: 08/10/19 Status: Ordered Problem List Condition Effective Dates Status Health Status Informant Asthma-Mild intermittent(Confirmed)1 Active Contraception management(Confirmed) Active Crohn's disease(Confirmed)2, 3 Active History of delivery(Confirmed) Active History of pre-eclampsia(Confirmed) Active 1Exercise induced, as confirmed by PFTs on Gastroenterology 150:734 (2016): IBD and wsojmzpmx2Aqbsljrwgm and Gynecology 126:401 (07/05) Vital Signs Most [...]
--- OUTSIDE RECORDS SUMMARY | 2023-01-31 10:42 | XMS_ITS | Continuity of Care Document ---
:1995 Author Organization [facility] Address [address] [place] [address]- Care Team Providers Name Role Phone Ghanshyam GUERRA, Shady Primary Care Physician Encounter [facility] Date(s): 03/20/21 - 04/19/21 [facility] [address] [place] [address] Allergies, Adverse Reactions, Alerts Substance Reaction Severity [...] 199:30:53 EDT, Aerosol, Route to Pharmacy Electronically, [id number], [facility]/pharmacy #[id number] Start Date: 06/11/19 Stop Date: 08/10/19 Status: OrderedApri 0.15 mg-0.03 mg oral tablet 1 tablet, By Mouth, Daily, # 28 tablet, 2 Refills, Maintenance, 08/15/18 11:30:46 EDT, Tablet, 1 tablet By Mouth Daily Start Date: 08/15/18 Status: OrderedColace 2-in-1 50 mg-8.6 mg oral tablet 1 tablet, By Mouth, Daily at bedtime, # 90 tablet, 0 Refills, Maintenance, 03/18/20 13:49:00 EDT, [facility]/pharmacy #[id number], 1 tablet By Mouth Daily at bedtime, 163, cm, 12/17/19 7:51:00 EST, Height, 100, kg,12/17/19 7:51:00 EST, Dry Weight Start Date: 03/18/20 Status: OrderedColace sodium 100 mg oral capsule 100 mg, 1, capsule, By Mouth, Daily, # 30 capsule, Refills 0, Tot. Refills 0, Maintenance, 03/18/20 13:41:00 EDT, [id number] 163, cm, 12/17/19 7:51:00 EST, Height, [...] 1 Refills, Maintenance, 03/18/20 13:41:00 EDT, Tablet, [id number], 163, cm, 12/17/19 7:51:00 EST, Height, 100, kg, 12/17/19 7:51:00 EST, Dry Weight Start Date: 03/18/20 Stop Date: 06/26/20 Status: OrderedHumira Pen 40 mg/0.4 mL subcutaneous kit = 40 mg, Subcutaneous Injection, Every 14 days, # 2 each, 5 Refills, Maintenance, 03/24/21 13:38:00 EDT, [facility], Partial fill upon patient [...] 3 each, 0Refills, Maintenance, 03/24/21 13:38:00 EDT, [facility], Partial fill upon patient [...] 05/27/20 9:58:00 EDT, Route to Pharmacy Electronically, [facility]/pharmacy #[id number], 163, cm, 05/02/20 11:25:00 EDT,Height, 100, kg, 05/02/20 8:23:00 EDT, Dry Weight Start Date: 05/27/20 Stop Date: 07/26/20 Status: Ordered Problem List Condition Effective Dates Status Health Status Informant Asthma-Mild intermittent(Confirmed)1 Active Contraception management(Confirmed) Active Crohn's disease(Confirmed)2, 3 Active History of delivery(Confirmed) Active History of pre-eclampsia(Confirmed) Active Urticaria(Confirmed) Active 1Exercise induced, as confirmed by PFTs on Gastroenterology 150:734 (2016): IBD and vxmtxmekt2Bsfuuvceag and Gynecology 126:401 (07/05) Social History Social History Type Response Smoking Status Never smoker entered on: 02/18/15 Sex
--- OUTSIDE RECORDS SUMMARY | 2023-01-31 10:42 | XMS_ITS | Continuity of Care Document ---
:1995 Author Organization [facility] Address [address] [place] [address]- Care Team Providers Name Role Phone Ghanshyam GUERRA, Shady Primary Care Physician Encounter [facility] Date(s): 09/18/21 - 10/18/[address] [address]- Attending Physician: Sebastián Zavala Admitting Physician: AdmSebastián [...] each, Refills 1, Tot. Refills 1, Maintenance, 219:44:00 EDT, Aerosol, Route to Pharmacy Electronically, [id number], [facility]/pharmacy #[id number], 163, cm, 09/18/21 9:36:00 EDT, Viktor... Start Date: 09/18/21 Stop Date: 11/17/21 Status: Orderedferrous sulfate 325 mg oral tablet 1 tablet = 325 mg, By Mouth, Daily, # 90 tablet, 3 Refills, Maintenance, 04/23/21 11:53:00 EDT, Tablet, [facility]/pharmacy #[id number], 163, cm, 03/17/21 13:26:00 EDT, Height, 103.2, kg, 09/05/20 15:56:00 EDT, DryWeight Start Date: 04/23/21 Status: OrderedHumira Pen 40 mg/0.4 mL subcutaneous kit = 40 mg, Subcutaneous Injection, Every 14 days, # 2 each, 8 Refills, Maintenance, 08/07/21 14:11:00 EDT, [facility], Partial fill upon patient request [...] 3 each, 0Refills, Maintenance, 03/24/21 13:38:00 EDT, [facility], Partial fill upon patient request [...] 05/27/20 9:58:00 EDT, Route to Pharmacy Electronically, [facility]/pharmacy #[id number], 163, cm, 05/02/20 11:25:00 EDT,Height, 100, kg, 05/02/20 8:23:00 EDT, Dry Weight Start Date: 05/27/20 Stop Date: 07/26/20 Status: Ordered Problem List Condition Effective Dates Status Health Status Informant Asthma-Mild intermittent(Confirmed)1 Active Contraception management(Confirmed) Active Crohn's disease(Confirmed)2, 3 Active History of delivery(Confirmed) Active History of pre-eclampsia(Confirmed) Active Urticaria(Confirmed) Active 1Exercise induced, as confirmed by PFTs on Gastroenterology 150:734 (2016): IBD and ppbjtmije1Ixnxveuoxh and Gynecology 126:401 (07/05) Social History Social History Type Response Smoking Status Never smoker entered on: 02/18/15 Sex
--- OUTSIDE RECORDS SUMMARY | 2023-01-31 10:42 | XMS_ITS | Continuity of Care Document ---
:1995 Author Organization [facility] Address [address] [place] [address]- Care Team Providers Name Role Phone Dandre Sheppard Primary Care Physician Encounter [facility] Date(s): 12/17/19 - 12/17/[address] [address]- [facility] Discharge Disposition: A-D/C Home Attending Physician: Ankit Bustillos MD Admitting Physician: [...] 199:30:53 EDT, Aerosol, Route to Pharmacy Electronically, [id number], [facility]/pharmacy #[id number] Start Date: 06/11/19 Stop Date: 08/10/19 [...] 06/11/19 9:31:17 EDT, Route to Pharmacy Electronically, [id number], [facility]/pharmacy #[id number] Start Date: 06/11/19 Stop Date: 08/10/19 Status: Ordered Problem List Condition Effective Dates Status Health Status Informant Asthma-Mild intermittent(Confirmed)1 Active Contraception management(Confirmed) Active Crohn's disease(Confirmed)2, 3 Active History of delivery(Confirmed) Active History of pre-eclampsia(Confirmed) Active 1Exercise induced, as confirmed by PFTs on Gastroenterology 150:734 (2016): IBD and osnfxcevj3Rudndqjbuf and Gynecology 126:401 (07/05) Procedures Procedure Date Related Diagnosis Body Site Status Colonoscopy 12/17/19 Completed Vital Signs Most recent to oldest 1 2 3 [Reference Range]: Height 163 cm (12/17/19 7:51 AM) Oxygen Saturation [94-100 100 % 99 % 96 % %] (12/17/19 9:03 AM) (12/17/19 8:56 AM) (12/17/19 7:5 1 AM) Pulse Rate [55-90 bpm] 102 bpm *H* (12/17/19 7:51 AM) Blood Pressure 122/75 mm Hg 115/61 mm Hg 142/84 mm Hg [90-138/55-84 mm Hg] (12/17/19 9:03 AM) (12/17/19 8:56 AM) *H* (12/17/19 7:51 AM ) Respiratory Rate [16-30 16 br/min 16 br/min 18 br/mi n br/min] (12/17/19 9:03 AM) (12/17/19 8:56 AM) (12/17/19 7:5 1 AM) Temperature [96.8-100.4 98 DegF DegF] (12/17/19 7:51 AM) Mode of Delivery (Oxygen) Room air Room air Room a ir (12/17/19 9:03 AM) (12/17/19 8:56 AM) (12/17/19 7:5 1 AM) Blood pressure sites Arm, left Arm, left Arm, right (12/17/19 9:03 AM) (12/17/19 8:56 AM) (12/17/19 7:5 1 AM) Temperature Route Temporal (12/17/19 7:51 AM) Dry Weight 100 kg (12/17/19 7:51 AM) Dry Weight Obtained Via Patient/family stated (12/17/19 7:51 AM) Social History Social History Type Response Smoking Status Never smoker entered on: 02/18/15 Sex
--- OUTSIDE RECORDS SUMMARY | 2023-01-31 10:42 | XMS_ITS | Continuity of Care Document ---
:1995 Author Organization [facility] Address [address] [place] [address]- Care Team Providers Name Role Phone Shady Morrissey NP Primary Care Physician [place] [facility] [place] 05/08/21 [facility] [address] [place] [id number] Attending Physician: Sebastián Zavala Admitting Physician: Sebastián [...] :30:53 EDT, Aerosol, Route to Pharmacy Electronically, [id number], [facility]/pharmacy #[id number] Start Date: 06/11/19 Stop Date: 08/10/19 Status: OrderedApri 0.15 mg-0.03 mg oral tablet 1 tablet, By Mouth, Daily, # 28 tablet, 2 Refills, Maintenance, 08/15/18 11:30:46 EDT, Tablet, 1 tablet By Mouth Daily Start Date: 08/15/18 Status: OrderedColace 2-in-1 50 mg-8.6 mg oral tablet 1 tablet, By Mouth, Daily at bedtime, # 90 tablet, 0 Refills, Maintenance, 03/18/20 13:49:00 EDT, [facility]/pharmacy #[id number], 1 tablet By Mouth Daily at bedtime, 163, cm, 12/17/19 7:51:00 EST, Height, 100, kg,12/17/19 7:51:00 EST, Dry Weight Start Date: 03/18/20 Status: OrderedColace sodium 100 mg oral capsule 100 mg, 1, capsule, By Mouth, Daily, # 30 capsule, Refills 0, Tot. Refills 0, Maintenance, 03/18/20 13:41:00 EDT, Route to Pharmacy Electronically, [id number], 163, cm, 12/17/19 7:51:00 EST, Height, [...] 3 Refills, Maintenance, 04/23/21 11:53:00 EDT, Tablet, [id number], 163, cm, 03/17/21 13:26:00 EDT, Height, 103.2, kg, 09/05/20 15:56:00 EDT, DryWeight Start Date: 04/23/21 Status: OrderedHumira Pen 40 mg/0.4 mL subcutaneous kit = 40 mg, Subcutaneous Injection, Every 14 days, # 2 each, 5 Refills, Maintenance, 03/24/21 13:38:00 EDT, [facility], Partial fill upon patient [...] 3 each, 0Refills, Maintenance, 03/24/21 13:38:00 EDT, [facility], Partial fill upon patient [...] 05/27/20 9:58:00 EDT, Route to Pharmacy Electronically, [facility]/pharmacy #[id number], 163, cm, 05/02/20 11:25:00 EDT,Height, 100, kg, 05/02/20 8:23:00 EDT, Dry Weight Start Date: 05/27/20 Stop Date: 07/26/20 Status: Ordered Problem List Condition Effective Dates Status Health Status Informant Asthma-Mild intermittent(Confirmed)1 Active Contraception management(Confirmed) Active Crohn's disease(Confirmed)2, 3 Active History of delivery(Confirmed) Active History of pre-eclampsia(Confirmed) Active Urticaria(Confirmed) Active 1Exercise induced, as confirmed by PFTs on Gastroenterology 150:734 (2016): IBD and gykjnoate7Qmjqwpzcpa and Gynecology 126:401 (07/05) Vital Signs Most [...]
--- OUTSIDE RECORDS SUMMARY | 2023-01-31 10:42 | XMS_ITS | Continuity of Care Document ---
:1995 Author Organization [facility] Address [address] [place] [address]- Care Team Providers Name Role Phone Dandre Sheppard MD Primary Care Physician [facility]counter [facility] Date(s): 10/17/19 - 02/08/20 [facility] [address] [place] [address] [facility] Attending Physician: Ankit Bustillos MD Admitting Physician: Ankit Bustillos MD Referring Physician: Dandre Sheppard MD Allergies, Adverse [...] 199:30:53 EDT, Aerosol, Route to Pharmacy Electronically, [id number], [facility]/pharmacy #[id number] Start Date: 06/11/19 Stop Date: [...] 06/11/19 9:31:17 EDT, Route to Pharmacy Electronically, [id number], [facility]/pharmacy #[id number] Start Date: 06/11/19 Stop Date: 08/10/19 Status: Ordered Problem List Condition Effective Dates Status Health Status Informant Asthma-Mild intermittent(Confirmed)1 Active Contraception management(Confirmed) Active Crohn's disease(Confirmed)2, 3 Active History of delivery(Confirmed) Active History of pre-eclampsia(Confirmed) Active 1Exercise induced, as confirmed by PFTs on Gastroenterology 150:734 (2016): IBD and cyumuqmzt7Mskxvlyfkb and Gynecology 126:401 (07/05) Social History Social History Type Response Smoking Status Never smoker entered on: 02/18/15 Sex
--- OUTSIDE RECORDS SUMMARY | 2023-01-31 10:43 | XMS_ITS | Continuity of Care Document ---
:1995 Author Organization [facility] Address [address] [place] [address]- Care Team Providers Name Role Phone Ghanshyam GUERRA, Shady Primary Care Physician Encounter [facility] Date(s): 09/16/22 - 10/16/[address] [address]- Attending Physician: Sebastián Zavala Admitting Physician: AdmSebastián [...] 02/22/2210:36:00 EDT, Aerosol, Route to Pharmacy Electronically, [id number], [facility]/pharmacy #[id number], 163, cm, 02/22/22 10:24:00 EDT, Hei... Start Date: 02/22/22 Stop Date: 04/23/22 Status: Orderedferrous sulfate 325 mg oral tablet 1 tablet = 325 mg, By Mouth, Daily, # 90 tablet, 3 Refills, Maintenance, 04/23/21 11:53:00 EDT, Tablet, [facility]/pharmacy #[id number], 163, cm, 03/17/21 13:26:00 EDT, Height, 103.2, kg, 09/05/20 15:56:00 EDT, DryWeight Start Date: 04/23/21 Status: OrderedHumira Pen 40 mg/0.4 mL subcutaneous kit = 40 mg, Subcutaneous Injection, Every 14 days, # 2 each, 3 Refills, Maintenance, 07/22/22 17:42:00 EDT, [facility], Partial fill upon patient [...] 3 each, 0Refills, Maintenance, 03/24/21 13:38:00 EDT, [facility], Partial fill upon patient [...] 05/27/20 9:58:00 EDT, Route to Pharmacy Electronically, [facility]/pharmacy #[id number], 163, cm, 05/02/20 11:25:00 EDT,Height, 100, kg, 05/02/20 8:23:00 EDT, Dry Weight Start Date: 05/27/20 Stop Date: 07/26/20 Status: Orderedomeprazole 20 mg oral enteric coated capsule 1 capsule = 20 mg, By Mouth, Daily, # 30 capsule, 0 Refills, Maintenance, 09/16/22 17:40:00 EDT, EC Capsule, [facility]/pharmacy #[id number], Partial fill upon patient request if the [...] PFTs on Gastroenterology 150:734 (2016): IBD and uisqwhcft1Xtjruyuzsu and Gynecology 126:401 (07/05) Social History Social History Type Response Smoking Status Never smoker entered on: 02/18/15 Sex Note Event Display: Non BH Lab Results Authored Date: Event Display: Non BH Lab Results Authored Date: Event Display: Laboratory Result Scanned Authored Date: Cardiology Outpatient Note Vita Menchaca: PERFORM Event Display: Cardiology Note Office Authored Date: [id number] Patient Care team information Care Team PersonnelName: Ghanshyam GUERRA, Shady Position: [facility] Associate Professional Member Role: PCP Address: Address: [address] [place] [address]- Name: Tiffanie Delaney RN Position: [facility] RN Member Role: Primary Care Nurse Name: Lynn Blair LPN Position: [facility] OB RN Member Role: Primary Care Nurse Name: Cherie Vences RN Position: [facility] RN Janna Member Role: Primary Care Nurse Name: Farzana Cruz Position: [facility] OB RN Member Role: Primary Care Nurse Name: Vita Jacobo RN Position: S RN Member Role: Primary Care Nurse Name: Alex Diaz Position: S RN Member Role: Primary Care Nurse Name: Melany Brenner RN Position: S RN Member Role: Primary Care Nurse Name: Helen Johnson RN Position: S RN Member Role: Primary Care Nurse Care Team Related PersonsName: MARVA SINGH Address: [address] Address: home [address] [place] [address] [place] Name: ASPEN RODRÍGUEZ Address: home [place] [address] Name: VITA BUNN Address: home [address] [address]
--- OUTSIDE RECORDS SUMMARY | 2023-01-31 10:43 | XMS_ITS | Continuity of Care Document ---
:1995 Author Organization [facility] Address [address] [place] [address]- Care Team Providers Name Role Phone Ghanshyam GUERRA, Shady Primary Care Physician Encounter [facility] [id number] Date(s): 03/17/21 - 04/16/[address] [address]- Attending Physician: Sebastián Zavala Admitting Physician: AdmtrSebastián Referring Physician: AdmtrSebastián Allergies, Adverse Reactions, Alerts [...] 199:30:53 EDT, Aerosol, Route to Pharmacy Electronically, [id number], [facility]/pharmacy #[id number] Start Date: 06/11/19 Stop Date: 08/10/19 Status: OrderedApri 0.15 mg-0.03 mg oral tablet 1 tablet, By Mouth, Daily, # 28 tablet, 2 Refills, Maintenance, 08/15/18 11:30:46 EDT, Tablet, 1 tablet By Mouth Daily Start Date: 08/15/18 Status: OrderedColace 2-in-1 50 mg-8.6 mg oral tablet 1 tablet, By Mouth, Daily at bedtime, # 90 tablet, 0 Refills, Maintenance, 03/18/20 13:49:00 EDT, [facility]/pharmacy #[id number], 1 tablet By Mouth Daily at bedtime, 163, cm, 12/17/19 7:51:00 EST, Height, 100, kg,12/17/19 7:51:00 EST, Dry Weight Start Date: 03/18/20 Status: OrderedColace sodium 100 mg oral capsule 100 mg, 1, capsule, By Mouth, Daily, # 30 capsule, Refills 0, Tot. Refills 0, Maintenance, 03/18/20 13:41:00 EDT, [id number], 163, cm, 12/17/19 7:51:00 EST, Height, [...] 1 Refills, Maintenance, 03/18/20 13:41:00 EDT, Tablet, [id number], 163, cm, 12/17/19 7:51:00 EST, Height, 100, kg, 12/17/19 7:51:00 EST, Dry Weight Start Date: 03/18/20 Stop Date: 06/26/20 Status: OrderedHumira Pen 40 mg/0.4 mL subcutaneous kit = 40 mg, Subcutaneous Injection, Every 14 days, # 2 each, 5 Refills, Maintenance, 03/24/21 13:38:00 EDT, [facility], Partial fill upon patient [...] 3 each, 0Refills, Maintenance, 03/24/21 13:38:00 EDT, [facility], Partial fill upon patient [...] 05/27/20 9:58:00 EDT, Route to Pharmacy Electronically, [facility]/pharmacy #[id number], 163, cm, 05/02/20 11:25:00 EDT,Height, 100, kg, 05/02/20 8:23:00 EDT, Dry Weight Start Date: 05/27/20 Stop Date: 07/26/20 Status: Ordered Problem List Condition Effective Dates Status Health Status Informant Asthma-Mild intermittent(Confirmed)1 Active Contraception management(Confirmed) Active Crohn's disease(Confirmed)2, 3 Active History of delivery(Confirmed) Active History of pre-eclampsia(Confirmed) Active Urticaria(Confirmed) Active 1Exercise induced, as confirmed by PFTs on Gastroenterology 150:734 (2016): IBD and lribpdxoq2Zhyfivurgc and Gynecology 126:401 (07/05) Social History Social History Type Response Smoking Status Never smoker entered on: 02/18/15 Sex
--- OUTSIDE RECORDS SUMMARY | 2023-01-31 10:43 | XMS_ITS | Continuity of Care Document ---
:1995 Author Organization [facility] Address [address] [place] [address]- Care Team Providers Name Role Phone Shady Morrissey NP Primary Care Physician Encounter [facility] Date(s): 01/19/21 - 05/17/[address] [address] Attending Physician: Ankit Bustillos MD Admitting Physician: [...] :30:53 EDT, Aerosol, Route to Pharmacy Electronically, [id number], [facility]/pharmacy #[id number] Start Date: [...] 03/18/20 13:41:00 EDT, [id number], 163, cm, 12/17/19 7:51:00 EST, Height, [...] 3 Refills, Maintenance, 04/23/21 11:53:00 EDT, Table[facility], [id number], 163, cm, 03/17/21 13:26:00 EDT, Height, 103.2, kg, 09/05/20 15:56:00 EDT, DryWeight Start Date: 04/23/21 Status: OrderedHumira Pen 40 mg/0.4 mL subcutaneous kit = 40 mg, Subcutaneous Injection, Every 14 days, # 2 each, 5 Refills, Maintenance, 03/24/21 13:38:00 EDT, [facility] [...] PFTs on Gastroenterology 150:734 (2016): IBD and eolpqkvbx9Pdfbzcxpya and Gynecology 126:401 (07/05) Social History Social History Type Response Smoking Status Never smoker entered on: 02/18/15 Sex
--- OUTSIDE RECORDS SUMMARY | 2023-01-31 10:43 | XMS_ITS | Continuity of Care Document ---
:1995 Author Organization [facility] Address [address] [place] [address]- Care Team Providers Name Role Phone Ghanshyam GUERRA, Shady Primary Care Physician Encounter [facility] [place] Date(s): 01/30/20 - 12/17/[address] [address]- Encounter Diagnosis Crohn's disease of large intestine without complications (Final) - Discharge Disposition: A-D/C Home Attending Physician: Ankit [...] 199:30:53 EDT, Aerosol, Route to Pharmacy Electronically, [id number], [facility]/pharmacy #[id number] Start Date: 06/11/19 Stop Date: 08/10/19 Status: OrderedApri 0.15 mg-0.03 mg oral tablet 1 tablet, By Mouth, Daily, # 28 tablet, 2 Refills, Maintenance, 08/15/18 11:30:46 EDT, Tablet, 1 tablet By Mouth Daily Start Date: 08/15/18 Status: OrderedColace 2-in-1 50 mg-8.6 mg oral tablet 1 tablet, By Mouth, Daily at bedtime, # 90 tablet, 0 Refills, Maintenance, 03/18/20 13:49:00 EDT, [facility]/pharmacy #[id number], 1 tablet By Mouth Daily at bedtime, 163, cm, 12/17/19 7:51:00 EST, Height, 100, kg,12/17/19 7:51:00 EST, Dry Weight Start Date: 03/18/20 Status: OrderedColace sodium 100 mg oral capsule 100 mg, 1, capsule, By Mouth, Daily, # 30 capsule, Refills 0, Tot. Refills 0, Maintenance, 03/18/20 13:41:00 EDT, [id number], 163, cm, 12/17/19 7:51:00 EST, Height, [...] Refills, Maintenance, 03/18/20 13:41:00 EDT, Tablet, [facility]/pharmacy #[id number], 163, cm, 12/17/19 7:51:00 EST, [...] EDT, [facility] to [facility] Electronically, [id number], 163, cm, 05/02/20 11:25:00 EDT,Height, 100, kg, 05/02/20 8:23:00 EDT, Dry Weight Start Date: 05/27/20 Stop Date: 07/26/20 Status: Ordered Problem List Condition Effective Dates Status Health Status Informant Asthma-Mild intermittent(Confirmed)1 Active Contraception management(Confirmed) Active Crohn's disease(Confirmed)2, 3 Active History of delivery(Confirmed) Active History of pre-eclampsia(Confirmed) Active 1Exercise induced, as confirmed by PFTs on Gastroenterology 150:734 (2016): IBD and edpkhgxbc3Gntqsaljbk and Gynecology 126:401 (07/05) Social History Social History Type Response Smoking Status Never smoker entered on: 02/18/15 Sex
--- OUTSIDE RECORDS SUMMARY | 2023-01-31 10:43 | XMS_ITS | Continuity of Care Document ---
:1995 Author Organization [facility] Address [address] [place] [address]- Care Team Providers Name Role Phone Ghanshyam GUERRA, Shady Primary Care Physician Encounter [facility] [place] Date(s): 06/22/21 - 07/22/21 [facility] [address] [place] [address] [place] Allergies, Adverse Reactions, Alerts Substance Reaction Severity [...] :30:53 EDT, Aerosol, Route to Pharmacy Electronically, [id number], [facility]/pharmacy #[id number] Start Date: 06/11/19 Stop Date: 08/10/19 Status: Orderedferrous sulfate 325 mg oral tablet 1 tablet = 325 mg, By Mouth, Daily, # 90 tablet, 3 Refills, Maintenance, 04/23/21 11:53:00 EDT, Tablet, [facility]/pharmacy #[id number], 163, cm, 03/17/21 13:26:00 EDT, Height, 103.2, kg, 09/05/20 15:56:00 EDT, DryWeight Start Date: 04/23/21 Status: OrderedHumira Pen 40 mg/0.4 mL subcutaneous kit = 40 mg, Subcutaneous Injection, Every 14 days, # 2 each, 5 Refills, Maintenance, 03/24/21 13:38:00 EDT, [facility], Partial fill upon patient [...] 3 each, 0Refills, Maintenance, 03/24/21 13:38:00 EDT, [facility], Partial fill upon patient [...] 9:58:00 EDT, Route to Pharmacy Electronically, [facility]/pharmacy #[id number], 163, cm, 05/02/20 11:25:00 EDT,Height, 100, kg, 05/02/20 8:23:00 EDT, Dry Weight Start Date: 05/27/20 Stop Date: 07/26/20 Status: Ordered Problem List Condition Effective Dates Status Health Status Informant Asthma-Mild intermittent(Confirmed)1 Active Contraception management(Confirmed) Active Crohn's disease(Confirmed)2, 3 Active History of delivery(Confirmed) Active History of pre-eclampsia(Confirmed) Active Urticaria(Confirmed) Active 1Exercise induced, as confirmed by PFTs on Gastroenterology 150:734 (2016): IBD and nvopumosm7Iivqfouamo and Gynecology 126:401 (07/05) Social History Social History Type Response Smoking Status Never smoker entered on: 02/18/15 Sex
--- OUTSIDE RECORDS SUMMARY | 2023-01-31 10:43 | XMS_ITS | Continuity of Care Document ---
:1995 Author Organization [facility] Address [address] [place] [address]- Care Team Providers Name Role Phone Dandre Sheppard MD Primary Care Physician Encounter [facility] Date(s): 01/09/20 - 01/19/20 [facility] [address] [place] [address] [facility] Attending Physician: Sebastián Zavala Admitting Physician: AdmSebastián [...] 199:30:53 EDT, Aerosol, Route to Pharmacy Electronically, [id number], [facility]/pharmacy #[id number] Start Date: 06/11/19 Stop Date: [...] 06/11/19 9:31:17 EDT, Route to Pharmacy Electronically, [id number], [facility] #[id number] Start Date: 06/11/19 Stop Date: 08/10/19 Status: Ordered Problem List Condition Effective Dates Status Health Status Informant Asthma-Mild intermittent(Confirmed)1 Active Contraception management(Confirmed) Active Crohn's disease(Confirmed)2, 3 Active History of delivery(Confirmed) Active History of pre-eclampsia(Confirmed) Active 1Exercise induced, as confirmed by PFTs on Gastroenterology 150:734 (2016): IBD and asnrydvnh1Crxtkjhbyl and Gynecology 126:401 (07/05) Vital Signs Most [...]
--- OUTSIDE RECORDS SUMMARY | 2023-01-31 10:43 | XMS_ITS | Continuity of Care Document ---
:1995 Author Organization [facility] Address [address] [place] [address]- Care Team Providers Name Role Phone Shady Morrissey NP Primary Care Physician Encounter [facility] [place] Date(s): 04/23/21 - 05/23/21 [facility] [address] [place] [address] Allergies, Adverse Reactions, Alerts Substance Reaction Severity [...] 199:30:53 EDT, Aerosol, Route to Pharmacy Electronically, [id number], [facility]/pharmacy #[id number] Start Date: 06/11/19 Stop Date: 08/10/19 Status: OrderedApri 0.15 mg-0.03 mg oral tablet 1 tablet, By Mouth, Daily, # 28 tablet, 2 Refills, Maintenance, 08/15/18 11:30:46 EDT, Tablet, 1 tablet By Mouth Daily Start Date: 08/15/18 Status: OrderedColace 2-in-1 50 mg-8.6 mg oral tablet 1 tablet, By Mouth, Daily at bedtime, # 90 tablet, 0 Refills, Maintenance, 03/18/20 13:49:00 EDT, [facility]/pharmacy #[id number], 1 tablet By Mouth Daily at bedtime, 163, cm, 12/17/19 7:51:00 EST, Height, 100, kg,12/17/19 7:51:00 EST, Dry Weight Start Date: 03/18/20 Status: OrderedColace sodium 100 mg oral capsule 100 mg, 1, capsule, By Mouth, Daily, # 30 capsule, Refills 0, Tot. Refills 0, Maintenance, 03/18/20 13:41:00 EDT, Route to Pharmacy Electronically, [facility]/pharmacy #[id number], 163, cm, 12/17/19 7:51:00 EST, [...] Refills, Maintenance, 04/23/21 11:53:00 EDT, Tablet, [facility]/pharmacy #[id number], 163, cm, 03/17/21 13:26:00 EDT, Height, 103.2, kg, 09/05/20 15:56:00 EDT, DryWeight Start Date: 04/23/21 Status: OrderedHumira Pen 40 mg/0.4 mL subcutaneous kit = 40 mg, Subcutaneous Injection, Every 14 days, # 2 each, 5 Refills, Maintenance, 03/24/21 13:38:00 EDT, [facility], Partial fill upon patient [...] 3 each, 0Refills, Maintenance, 03/24/21 13:38:00 EDT, [facility], Partial fill upon patient [...] 05/27/20 9:58:00 EDT, Route to Pharmacy Electronically, [facility]/pharmacy #[id number], 163, cm, 05/02/20 11:25:00 EDT,Height, 100, kg, 05/02/20 8:23:00 EDT, Dry Weight Start Date: 05/27/20 Stop Date: 07/26/20 Status: Ordered Problem List Condition Effective Dates Status Health Status Informant Asthma-Mild intermittent(Confirmed)1 Active Contraception management(Confirmed) Active Crohn's disease(Confirmed)2, 3 Active History of delivery(Confirmed) Active History of pre-eclampsia(Confirmed) Active Urticaria(Confirmed) Active 1Exercise induced, as confirmed by PFTs on Gastroenterology 150:734 (2016): IBD and zsaeuszkh3Pmjypbuley and Gynecology 126:401 (07/05) Social History Social History Type Response Smoking Status Never smoker entered on: 02/18/15 Sex
--- OUTSIDE RECORDS SUMMARY | 2023-01-31 10:43 | XMS_ITS ---
:1995 External Reference #:[id number] Author Care Team Providers Name Role Phone DR. CISCO [place] Primary Care Provider [phone] [facility] Primary Care Provide r [phone] Allergies Code Code System Name Reaction Severity Status Onset NKDA ? Medications No Medications Reported Problems Name Status Onset Date Source ? Chest Pain Active ? Encounter Breathing Painful Active ? Encounter Procedures None recorded. Results Lab Results None recorded. Past Encounters None recorded. Social History Tobacco Smoking Status Never Smoker Vaccine List None recorded. Plan of Care Reminders Provider Appointments None recorded. ? ? Lab None recorded. ? ? Referral None recorded. ? ? Procedures None recorded. ? ? Surgeries None recorded. ? ? Imaging None recorded. ? ? Vitals Height Weight BMI Blood Pressure 162 cm 65 kg 24.8 kg/m2 110/74 mm[Hg]
--- OUTSIDE RECORDS SUMMARY | 2023-01-31 10:43 | XMS_ITS | Continuity of Care Document ---
:1995 Author Organization [facility] Address [address] [place] [address]- Care Team Providers Name Role Phone Shady Morrissey NP Primary Care Physician Encounter [facility] Date(s): 02/23/21 - 03/25/21 [facility] [address] [place] [id number] Allergies, Adverse Reactions, Alerts Substance [...] 199:30:53 EDT, Aerosol, Route to Pharmacy Electronically, [id number], [facility]/pharmacy #[id number] Start Date: 06/11/19 Stop Date: 08/10/19 Status: OrderedApri 0.15 mg-0.03 mg oral tablet 1 tablet, By Mouth, Daily, # 28 tablet, 2 Refills, Maintenance, 08/15/18 11:30:46 EDT, Tablet, 1 tablet By Mouth Daily Start Date: 08/15/18 Status: OrderedColace 2-in-1 50 mg-8.6 mg oral tablet 1 tablet, By Mouth, Daily at bedtime, # 90 tablet, 0 Refills, Maintenance, 03/18/20 13:49:00 EDT, [facility]/pharmacy #[id number], 1 tablet By Mouth Daily at bedtime, 163, cm, 12/17/19 7:51:00 EST, Height, 100, kg,12/17/19 7:51:00 EST, Dry Weight Start Date: 03/18/20 Status: OrderedColace sodium 100 mg oral capsule 100 mg, 1, capsule, By Mouth, Daily, # 30 capsule, Refills 0, Tot. Refills 0, Maintenance, 03/18/20 13:41:00 EDT, Route to Pharmacy Electronically, [facility]/pharmacy #[id number], 163, cm, 12/17/19 7:51:00 EST, Height, [...] Refills, Maintenance, 03/18/20 13:41:00 EDT, [id number], 163, cm, 12/17/19 7:51:00 EST, Height, 100, kg, 12/17/19 7:51:00 EST, Dry Weight Start Date: 03/18/20 Stop Date: 06/26/20 Status: OrderedHumira Pen 40 mg/0.4 mL subcutaneous kit = 40 mg, Subcutaneous Injection, Every 14 days, # 2 each, 5 Refills, Maintenance, 03/24/21 13:38:00 EDT, [facility], Partial fill upon patient [...] 3 each, 0Refills, Maintenance, 03/24/21 13:38:00 EDT, [facility], Partial fill upon patient [...] 9:58:00 EDT, Route to Pharmacy Electronically, [facility]/pharmacy #[id number], 163, cm, 05/02/20 11:25:00 EDT,Height, 100, kg, 05/02/20 8:23:00 EDT, Dry Weight Start Date: 05/27/20 Stop Date: 07/26/20 Status: Ordered Problem List Condition Effective Dates Status Health Status Informant Asthma-Mild intermittent(Confirmed)1 Active Contraception management(Confirmed) Active Crohn's disease(Confirmed)2, 3 Active History of delivery(Confirmed) Active History of pre-eclampsia(Confirmed) Active Urticaria(Confirmed) Active 1Exercise induced, as confirmed by PFTs on Gastroenterology 150:734 (2016): IBD and [id number] and Gynecology 126:401 (07/05) Social History Social History Type Response Smoking Status Never smoker entered on: 02/18/15 Sex
--- OUTSIDE RECORDS SUMMARY | 2023-01-31 10:43 | XMS_ITS | Continuity of Care Document ---
:1995 Author Organization [facility] Address [address] [place] [address]- Care Team Providers Name Role Phone Shady Morrissey NP Primary Care Physician Encounter [facility] Date(s): 09/18/21 - 11/18/[address] [address]- Attending Physician: Not on Staff, Attending MD Referring Physician: Shady Morrissey NP Allergies, Adverse Reactions, Alerts Substance Reaction Severity [...] 219:44:00 EDT, Aerosol, Route to Pharmacy Electronically, [id number], [facility]/pharmacy #[id number], 163, cm, 09/18/21 9:36:00 EDT, Heigh... Start Date: 09/18/21 Stop Date: 11/17/21 Status: Orderedferrous sulfate 325 mg oral tablet 1 tablet = 325 mg, By Mouth, Daily, # 90 tablet, 3 Refills, Maintenance, 04/23/21 11:53:00 EDT, Tablet, [facility]/pharmacy #[id number], 163, cm, 03/17/21 13:26:00 EDT, Height, 103.2, kg, 09/05/20 15:56:00 EDT, DryWeight Start Date: 04/23/21 Status: OrderedHumira Pen 40 mg/0.4 mL subcutaneous kit = 40 mg, Subcutaneous Injection, Every 14 days, # 2 each, 8 Refills, Maintenance, 08/07/21 14:11:00 EDT, [facility], Partial fill upon patient request if the prescription is for a schedule II opioid drug., 163, cm, 06/10/21 14:01:00 E... Start Date: 08/07/21 Status: OrderedHumira Pen Crohns/Ulcer Colitis/Hidradenitis Suppurativa Starterr Pack 80 mg/0.8 mL subcutaneous ki See Instructions, 160mg on day 1 then 80mg on day 15 then 40mg q14 days starting day 29, # 3 each, 0Refills, Maintenance, 03/24/21 13:38:00 EDT, [facility], Partial fill upon patient request if [...] EDT, Route to Pharmacy Electronically, [facility]/pharmacy #[id number], 163, cm, 05/02/20 11:25:00 [...] PFTs on Gastroenterology 150:734 (2016): IBD and [id number] and Gynecology 126:401 (07/05) Social History Social History Type Response Smoking Status Never smoker entered on: 02/18/15 Sex
--- OUTSIDE RECORDS SUMMARY | 2023-01-31 10:43 | XMS_ITS | Continuity of Care Document ---
:1995 Author Organization [facility] Address [address] [place] [address]- Care Team Providers Name Role Phone Shady Morrissey NP Primary Care Physician Encounter [facility] Date(s): 11/17/21 - 12/17/21 [facility] [address] [place] [address]- Allergies, Adverse Reactions, Alerts No Known Allergies [...] 219:44:00 EDT, Aerosol, Route to Pharmacy Electronically, [id number], [facility]/pharmacy #[id number], 163, cm, 09/18/21 9:36:00 EDT, Viktor... Start Date: 09/18/21 Stop Date: 11/17/21 Status: Orderedferrous sulfate 325 mg oral tablet 1 tablet = 325 mg, By Mouth, Daily, # 90 tablet, 3 Refills, Maintenance, 04/23/21 11:53:00 EDT, Tablet, [facility]/pharmacy #[id number], 163, cm, 03/17/21 13:26:00 EDT, Height, 103.2, kg, 09/05/20 15:56:00 EDT, DryWeight Start Date: 04/23/21 Status: OrderedHumira Pen 40 mg/0.4 mL subcutaneous kit = 40 mg, Subcutaneous Injection, Every 14 days, # 2 each, 8 Refills, Maintenance, 08/07/21 14:11:00 EDT, [facility], Partial fill upon patient [...] 3 each, 0Refills, Maintenance, 03/24/21 13:38:00 EDT, [facility], Partial fill upon patient [...] 9:58:00 EDT, Route to Pharmacy Electronically, [facility]/pharmacy #[id number], 163, cm, 05/02/20 11:25:00 EDT,Height, [...] PFTs on Gastroenterology 150:734 (2016): IBD and [id number] and Gynecology 126:401 (07/05) Social History Social History Type Response Smoking Status Never smoker entered on: 02/18/15 Sex
--- OUTSIDE RECORDS SUMMARY | 2023-01-31 10:43 | XMS_ITS | Continuity of Care Document ---
:1995 Author Organization [facility] Address [address] [place] [address]- Care Team Providers Name Role Phone Ghanshyam GUERRA, Shady Primary Care Physician Encounter [facility] Date(s): 04/27/21 - 05/27/[address] [address]- Allergies, Adverse Reactions, Alerts Substance Reaction Severity [...] 199:30:53 EDT, Aerosol, Route to Pharmacy Electronically, [id number], [facility]/pharmacy #[id number] Start Date: 06/11/19 Stop Date: 08/10/19 Status: OrderedApri 0.15 mg-0.03 mg oral tablet 1 tablet, By Mouth, Daily, # 28 tablet, 2 Refills, Maintenance, 08/15/18 11:30:46 EDT, Tablet, 1 tablet By Mouth Daily Start Date: 08/15/18 Status: OrderedColace 2-in-1 50 mg-8.6 mg oral tablet 1 tablet, By Mouth, Daily at bedtime, # 90 tablet, 0 Refills, Maintenance, 03/18/20 13:49:00 EDT, [facility]/pharmacy #[id number], 1 tablet By Mouth Daily at bedtime, 163, cm, 12/17/19 7:51:00 EST, Height, 100, kg,12/17/19 7:51:00 EST, Dry Weight Start Date: 03/18/20 Status: OrderedColace sodium 100 mg oral capsule 100 mg, 1, capsule, By Mouth, Daily, # 30 capsule, Refills 0, Tot. Refills 0, Maintenance, 03/18/20 13:41:00 EDT, Route to Pharmacy Electronically, [facility]/pharmacy #[id number], 163, cm, 12/17/19 7:51:00 EST, [...] 3 Refills, Maintenance, 04/23/21 11:53:00 EDT, [id number] 163, cm, 03/17/21 13:26:00 EDT, Height, 103.2, kg, 09/05/20 15:56:00 EDT, DryWeight Start Date: 04/23/21 Status: OrderedHumira Pen 40 mg/0.4 mL subcutaneous kit = 40 mg, Subcutaneous Injection, Every 14 days, # 2 each, 5 Refills, Maintenance, 03/24/21 13:38:00 EDT, [facility], Partial fill upon patient [...] 3 each, 0Refills, Maintenance, 03/24/21 13:38:00 EDT, [facility], Partial fill upon patient [...] 05/27/20 9:58:00 EDT, Route to Pharmacy Electronically, [facility]/pharmacy #[id number], 163, cm, 05/02/20 11:25:00 EDT,Height, 100, kg, 05/02/20 8:23:00 EDT, Dry Weight Start Date: 05/27/20 Stop Date: 07/26/20 Status: Ordered Problem List Condition Effective Dates Status Health Status Informant Asthma-Mild intermittent(Confirmed)1 Active Contraception management(Confirmed) Active Crohn's disease(Confirmed)2, 3 Active History of delivery(Confirmed) Active History of pre-eclampsia(Confirmed) Active Urticaria(Confirmed) Active 1Exercise induced, as confirmed by PFTs on Gastroenterology 150:734 (2016): IBD and [id number] and Gynecology 126:401 (07/05) Social History Social History Type Response Smoking Status Never smoker entered on: 02/18/15 Sex
--- OUTSIDE RECORDS SUMMARY | 2023-01-31 10:43 | XMS_ITS | Continuity of Care Document ---
:1995 Author Organization [facility] Address [address] [place] [address]- Care Team Providers Name Role Phone Ghanshyam GUERRA, Shady Primary Care Physician Encounter [facility] Date(s): 05/13/21 - 06/12/[address] [address]- Allergies, Adverse Reactions, Alerts Substance Reaction Severity [...] :30:53 EDT, Aerosol, Route to Pharmacy Electronically, [id number], [facility]/pharmacy #[id number] Start Date: 06/11/19 Stop Date: 08/10/19 Status: Orderedferrous sulfate 325 mg oral tablet 1 tablet = 325 mg, By Mouth, Daily, # 90 tablet, 3 Refills, Maintenance, 04/23/21 11:53:00 EDT, Tablet, [facility]/pharmacy #[id number], 163, cm, 03/17/21 13:26:00 EDT, Height, 103.2, kg, 09/05/20 15:56:00 EDT, DryWeight Start Date: 04/23/21 Status: OrderedFlagyl 500 mg oral tablet 1 tablet = 500 mg, By Mouth, Every 12 hours, for 7 days, Acute, # 14 tablet, 0 Refills, Acute 06/19/21 11:58:00 EDT, 06/12/21 11:58:00 EDT, [facility]/pharmacy #[id number], Partial fill upon patient request if the prescription is for a schedule II opioid drug., 16... Start Date: 06/12/21 Stop Date: 06/19/21 Status: OrderedHumira Pen 40 mg/0.4 mL subcutaneous kit = 40 mg, Subcutaneous Injection, Every 14 days, # 2 each, 5 Refills, Maintenance, 03/24/21 13:38:00 EDT, [facility], Partial fill upon patient request if the prescription is for a schedule II opioid drug., 163, cm, 03/17/21 13:26:00 E... Start Date: 03/24/21 Status: OrderedHumira Pen Crohns/Ulcer Colitis/Hidradenitis Suppurativa Starterr Pack 80 mg/0.8 mL subcutaneous ki See Instructions, 160mg on day 1 then 80mg on day 15 then 40mg q14 days starting day 29, # 3 each, 0Refills, Maintenance, 03/24/21 13:38:00 EDT, [facility], Partial fill upon patient request if [...] PFTs on Gastroenterology 150:734 (2016): IBD and [id number] and Gynecology 126:401 (07/05) Social History Social History Type Response Smoking Status Never smoker entered on: 02/18/15 Sex
--- OUTSIDE RECORDS SUMMARY | 2023-01-31 10:43 | XMS_ITS | Continuity of Care Document ---
:1995 Author Organization [facility] Address [address] [place] [address]- Care Team Providers Name Role Phone Valarie PAULA, Dandre Seymour Primary Care Physician Encounter [facility] Date(s): 05/27/20 - 06/26/[address] [address]- [facility] Allergies, Adverse Reactions, Alerts Substance Reaction Severity [...] 199:30:53 EDT, Aerosol, Route to Pharmacy Electronically, [id number], [facility]/pharmacy #[id number] Start Date: 06/11/19 Stop Date: 08/10/19 Status: OrderedApri 0.15 mg-0.03 mg oral tablet 1 tablet, By Mouth, Daily, # 28 tablet, 2 Refills, Maintenance, 08/15/18 11:30:46 EDT, Tablet, 1 tablet By Mouth Daily Start Date: 08/15/18 Status: OrderedColace 2-in-1 50 mg-8.6 mg oral tablet 1 tablet, By Mouth, Daily at bedtime, # 90 tablet, 0 Refills, Maintenance, 03/18/20 13:49:00 EDT, [facility]/pharmacy #[id number], 1 tablet By Mouth Daily at bedtime, 163, cm, 12/17/19 7:51:00 EST, Height, 100, kg,12/17/19 7:51:00 EST, Dry Weight Start Date: 03/18/20 Status: OrderedColace sodium 100 mg oral capsule 100 mg, 1, capsule, By Mouth, Daily, # 30 capsule, Refills 0, Tot. Refills 0, Maintenance, 03/18/20 13:41:00 EDT, [id number] 163, cm, 12/17/19 7:51:00 EST, [...] 1 Refills, Maintenance, 03/18/20 13:41:00 EDT, Tablet, [facility]/pharmacy #[id number], 163, cm, 12/17/19 7:51:00 [...] 05/27/20 9:58:00 EDT, Route to Pharmacy Electronically, [facility]/pharmacy #[id number], 163, cm, 05/02/20 11:25:00 EDT,Height, 100, kg, 05/02/20 8:23:00 EDT, Dry Weight Start Date: 05/27/20 Stop Date: 07/26/20 Status: Ordered Problem List Condition Effective Dates Status Health Status Informant Asthma-Mild intermittent(Confirmed)1 Active Contraception management(Confirmed) Active Crohn's disease(Confirmed)2, 3 Active History of delivery(Confirmed) Active History of pre-eclampsia(Confirmed) Active 1Exercise induced, as confirmed by PFTs on Gastroenterology 150:734 (2015): IBD and [id number] and Gynecology 126:401 (07/05) Social History Social History Type Response Smoking Status Never smoker entered on: 02/18/15 Sex
--- OUTSIDE RECORDS SUMMARY | 2023-01-31 10:43 | XMS_ITS | Continuity of Care Document ---
:1995 Author Organization [facility] Address [address] [place] [address]- Care Team Providers Name Role Phone Shady Morrissey NP Primary Care Physician Encounter [facility] Date(s): 06/01/21 - 07/01/21 [facility] [address] [place] [id number] Allergies, Adverse Reactions, Alerts Substance Reaction [...] :30:53 EDT, Aerosol, Route to Pharmacy Electronically, [id number], [facility]/pharmacy #[id number] Start Date: 06/11/19 Stop Date: 08/10/19 Status: Orderedferrous sulfate 325 mg oral tablet 1 tablet = 325 mg, By Mouth, Daily, # 90 tablet, 3 Refills, Maintenance, 04/23/21 11:53:00 EDT, Tablet, [facility]/pharmacy #[id number], 163, cm, 03/17/21 13:26:00 EDT, Height, 103.2, kg, 09/05/20 15:56:00 EDT, DryWeight Start Date: 04/23/21 Status: OrderedHumira Pen 40 mg/0.4 mL subcutaneous kit = 40 mg, Subcutaneous Injection, Every 14 days, # 2 each, 5 Refills, Maintenance, 03/24/21 13:38:00 EDT, [facility], Partial fill upon patient [...] 3 each, 0Refills, Maintenance, 03/24/21 13:38:00 EDT, [facility], Partial fill upon patient [...] 05/27/20 9:58:00 EDT, Route to Pharmacy Electronically, [facility]/pharmacy #[id number], 163, cm, 05/02/20 11:25:00 EDT,Height, 100, kg, 05/02/20 8:23:00 EDT, Dry Weight Start Date: 05/27/20 Stop Date: 07/26/20 Status: Ordered Problem List Condition Effective Dates Status Health Status Informant Asthma-Mild intermittent(Confirmed)1 Active Contraception management(Confirmed) Active Crohn's disease(Confirmed)2, 3 Active History of delivery(Confirmed) Active History of pre-eclampsia(Confirmed) Active Urticaria(Confirmed) Active 1Exercise induced, as confirmed by PFTs on Gastroenterology 150:734 (2016): IBD and [id number] and Gynecology 126:401 (07/05) Social History Social History Type Response Smoking Status Never smoker entered on: 02/18/15 Sex
[2023-01-31 10:48] LABS: MANUAL DIFF FLAG NO
[2023-01-31 10:49] LABS: Basophils Percent Auto 0.1 % (0-2); Eosinophils Absolute Auto 0.3 X10*3/uL (0.0-0.4); Eosinophils Percent Auto 2.2 % (0-4); Hematocrit 40.9 % (37.0-47.0); Hemoglobin 12.5 g/dl (12.0-16.0); Imm Gran Abs Auto 0.04 X10*3/uL (0.00-0.03); Imm Gran Pct Auto 0.3 % (0.0-0.4); Lymphocytes Absolute Auto 2.3 X10*3/uL (1.2-4.9); Lymphocytes Percent Auto 16.2 % (20-40); Mean Corpuscular HGB Conc 30.6 g/dl (31.0-35.0); Mean Corpuscular Hemoglobin 23.5 pg (27.0-33.0); Mean Corpuscular Volume 76.9 fL (80.0-98.0); Mean Platelet Volume 10.2 fL (9.4-12.3); Monocytes Percent Auto 6.7 % (2-11); Neutrophils Absolute Auto 10.5 x10*3/uL (2.0-8.3); Neutrophils Percent Auto 74.5 % (45-73); Platelet Count 455 X10*3/uL (160-400); Red Blood Count 5.32 X10*6/uL (4.20-5.50); Red Cell Distribution Width 15.8 % (11.0-16.0); White Blood Count 14.2 X10*3/uL (4.8-10.8)
[2023-01-31 11:09] LABS: Alanine Aminotransferase 22 U/L (0-31); Albumin Level 4.3 g/dL (3.5-5.0); Alkaline Phosphatase 74 U/L (39-117); Anion Gap 11 (12-20); Aspartate Amino Transferase 22 U/L (5-31); Bilirubin Total 0.3 mg/dL (0.0-1.0); Blood Urea Nitrogen 7 mg/dL (9-16); Carbon Dioxide 24 mmol/L (22-29); Chloride 108 mmol/L (96-108); Creatinine Clr Calc Pharmacy 125.1; Estimated Glomerular Filt Rate > 60; Glucose Random 125 mg/dL (60-115); Magnesium 1.9 mg/dL (1.6-2.6); Potassium 4.2 mmol/L (3.3-5.1); Sodium 139 mmol/L (135-145); Total Protein 7.7 g/dL (6.5-8.0)
[2023-01-31] MEDS: 0.9 % Sodium Chloride 1,000 ML 999 ML IV (12:10)
[2023-01-31] MEDS: methylPREDNISolone Sod Succ 125 MG/2 ML VIAL 60 MG IVPUSH (12:10)
[2023-01-31] MEDS: Morphine Sulfate 4 MG/ML CARTRIDGE IVPUSH (12:10)
[2023-01-31 12:34] LABS: Lipase 65 U/L (8-78)
[2023-01-31 12:50] LABS: HCG Quantitative < 2 mIU/mL
[2023-01-31] MEDS: iohexoL 350 MG/ML 100 ML INFUS..BTL 85 ML IV (14:26)
[2023-01-31 14:47] LABS: Appearance Urine Clear; Color Urine Yellow; Glucose Urine UA Negative (Negative); Leukocyte Esterase Urine Negative (Negative); Nitrite Urine Negative (Negative); PH >= 9.0 (5.0-9.0); Specific Gravity - Urine >= 1.030 (1.005-1.025); Urine Blood Negative (Negative); Urine Ketones Negative (Negative); Urine Protein Trace mg/dL (Neg-Trace)
--- NOTE | 2023-01-31 15:00 | ED.ABDPAIN ---
HPI - Abdominal Pain General Chief Complaint: Abdominal Pain Stated Complaint: chromes disease flare Time Seen by Provider: 01/31/23 11:24 Source: patient Mode of arrival: ambulatory Limitations: no limitations History of Present Illness HPI narrative: 27-year-old female with history of Crohn's presents to the ED for epigastric abdominal pain with vomiting. Patient denies any diarrhea. Patient denies any fever, chills, dysuria, hematuria, any recent trauma, or URI symptoms. Related Data Previous Rx's Medication Instructions Recorded naproxen 500 mg tablet 500 mg PO BID PRN pain 7 days #14 01/31/23 tabs oxycodone 5 mg tablet 5 mg PO TID PRN pain 3 days #9 tabs 01/31/23 Allergies Allergy/AdvReac Type Severity Reaction Status Date / Time No Known Allergies Allergy Unverified 08/07/20 19:13 [No Known Allergies*] Review of Systems Review of Systems Abdominal pain Yes all other systems are reviewed and are negative [facility] Social History Social History Advance Directives: No Advance Directives Information Provided: Yes Physical Exam ED Vital Signs: Vital Signs - 24 hr 01/31/23 10:24 Temperature 96.8 F Pulse Rate 103 H Respiratory Rate 22 H Blood Pressure 145/98 H Pulse Oximetry 99 Oxygen Delivery Method Room Air BMI result Body Mass Index 40.8 Const General: cooperative, healthy appearing, comfortable, no acute distress, well developed, alert, awake and Physically active Orientation/consciousness: oriented to person, oriented to place, oriented to time and patient oriented x3 HENMT Head: Yes normal to inspection, Yes No palpable skull fracture present, Yes normocephalic, Yes atraumatic and No abrasion Eyes General: appearance normal, both eyes and all related structures Neck Neck: Yes normal visual inspection, Yes full ROM, Yes no lymphadenopathy, Yes no meningeal signs, Yes trachea midline, Yes supple, No anterior neck swelling and No tender Chest Chest palpation & inspection: normal inspection of the chest and normal palpation of entire chest wall Resp Effort & Inspection: normal respiratory effort and able to speak in complete sentences Auscultation: clear to auscultation bilaterally Cardio Jugular venous distension: no JVD Heart sounds: S1 normal heart sound present and S2 normal heart sound present GI Inspection: Yes normal to inspection Palpation (GI): Tenderness to palpation present (GI) in the epigastrum; not in the LLQ, not in the RLQ, not in the LUQ, not in the RUQ, not at McBurney's point, not periumbilically, not suprapubicly, Reis's sign negative, obturator sign negative, psoas sign negative, with no rebound tenderness and Rovsing's sign negative, no guarding and not rigid General: No CVA tenderness and Yes no CVA tenderness Back/Spine/Pelvis Back: no CVA tenderness, No CVA tenderness and No back tenderness Skin General skin exam: no rashes or lesions noted and elasticity normal Neuro General: oriented to person, oriented to place, oriented to time, patient oriented x3, gait normal, tone normal, moves all extremities, Normal light touch and pain sensation, no meningeal signs, no focal motor deficits, CN's II-XI intact bilaterally and normal sensation to monofilament Extrem General: Yes normal to inspection and Yes full ROM Psych Appearance: grossly normal, well kempt and not disheveled Course Course Course Narrative: Labs ordered. Morphine and steroid ordered. Abdominal CT scan ordered. Reevaluation(s) Reevaluation #1: Patient labs shows elevated WBC. Liver enzymes are normal. UA negative for UTI. CT scan shows gallstones without any cholecystitis which explains patient's epigastric upper abdominal pain. Negative Reis sign. Patient does not have any lower abdominal tenderness on re-evaluation. Patient inform of IUD misplaced in CT scan but no perforation. Patient prefer IUD be removed by her OBGYN. Time: 15:31 Medical Decision Making Medical Decision Making MDM Narrative: 27-year-old female presents to ED for epigastric abdominal pain with nausea and vomiting. Labs drawn. CT scan shows gallstones. Differential Diagnosis Differential Diagnoses: The differential diagnosis associated with the presentation includes ( Pancreatitis, GERD, cholecystitis, biliary colic.) Admission/Observation Consideration of admission/observation: Escalation of care including admission/observation considered Lab Data 01/31/23 10:42 01/31/23 10:42 Labs: Lab Results 01/31/23 01/31/23 01/31/23 Range/Units 10:42 10:42 14:41 WBC 14.2 H (4.8-10.8) X10*3/uL RBC 5.32 (4.20-5.50) X10*6/uL Hgb 12.5 (12.0-16.0) g/dl Hct 40.9 (37.0-47.0) % MCV 76.9 L (80.0-98.0) fL MCH 23.5 L (27.0-33.0) pg MCHC 30.6 L (31.0-35.0) g/dl RDW 15.8 (11.0-16.0) % Plt Count 455 H (160-400) X10*3/uL MPV 10.2 (9.4-12.3) fL Immature Gran % (Auto) 0.3 (0.0-0.4) % Neut % (Auto) 74.5 H (45-73) % Lymph % (Auto) 16.2 L (20-40) % [place] % (Auto) 6.7 (2-11) % Eos % (Auto) 2.2 (0-4) % Baso % (Auto) 0.1 (0-2) % Lymph # (Auto) 2.3 (1.2-4.9) X10*3/uL [place] # (Auto) 1.0 (0.1-1.2) X10*3/uL Eos # (Auto) 0.3 (0.0-0.4) X10*3/uL Baso # (Auto) 0.0 (0.0-0.2) X10*3/uL Abs Immat Gran (auto) 0.04 H (0.00-0.03) X10*3/uL Absolute Neuts (auto) 10.5 H (2.0-8.3) x10*3/uL Absolute Nucleated RBC 0.000 (0.0-0.012) X10*3/uL Nucleated RBC % (auto) 0.0 (0.0-0.2) /100WBC Sodium 139 (135-145) mmol/L Potassium 4.2 (3.3-5.1) mmol/L Chloride 108 (96-108) mmol/L Carbon Dioxide 24 (22-29) mmol/L Anion Gap 11 L (12-20) BUN 7 L (9-16) mg/dL Creatinine 0.81 (0.5-1.4) mg/dL Estim Creat Clear Calc 125.1 Estimated GFR > 60 Random Glucose 125 H (60-115) mg/dL Calcium 9.0 (8.4-10.2) mg/dL Magnesium 1.9 (1.6-2.6) mg/dL Total Bilirubin 0.3 (0.0-1.0) mg/dL AST 22 (5-31) U/L ALT 22 (0-31) U/L Alkaline Phosphatase 74 (39-117) U/L Total Protein 7.7 (6.5-8.0) g/dL Albumin 4.3 (3.5-5.0) g/dL Lipase 65 (8-78) U/L Beta HCG, Quant < 2 mIU/mL Urine Color Yellow Urine Appearance Clear Urine pH >= 9.0 (5.0-9.0) Ur Specific [place] >= 1.030 H (1.005-1.025) Urine Protein Trace (Neg-Trace) mg/dL Urine Glucose (UA) Negative (Negative) mg/dL Urine Ketones Negative (Negative) mg/dL Urine Blood Negative (Negative) Urine Nitrite Negative (Negative) Ur Leukocyte Esterase Negative (Negative) Independent Interpretation I performed an independent interpretation of an: CT Scan Radiology Impression Discussion of test interpretation with radiology: I have reviewed the radiologist's reading. Prescription Management I considered prescription management with: Pain Medication Medications Administered Discontinued Medications Generic Name Dose Route Start Last Admin Trade Name Treyq PRN Reason Stop Dose Admin Sodium Chloride 1,000 mls @ 999 mls/hr 01/31/23 11:46 01/31/23 13:16 Ns IV 01/31/23 12:46 Infused .Q1H1M STA Infusion Iohexol 85 ml 01/31/23 14:24 01/31/23 14:26 Iohexol 350 Mg/Ml 100 Ml Infus..Btl IV 01/31/23 14:25 85 ml ONCE ONE Administration Methylprednisolone Sodium Succinate 60 mg 01/31/23 11:51 01/31/23 12:10 Methylprednisolone Sod Succ 125 Mg/2 Ml Vial IVPUSH 01/31/23 11:52 60 mg ONCE ONE Administration Morphine Sulfate 4 mg 01/31/23 11:46 01/31/23 12:10 Morphine Sulfate 4 Mg/Ml Cartridge IVPUSH 01/31/23 11:47 4 mg ONCE ONE Administration Protocol Ondansetron HCl 4 mg 01/31/23 10:30 01/31/23 10:32 Ondansetron Odt 4 Mg Tab.Jarred MOSQUEDA 01/31/23 10:31 4 mg ONCE ONE Administration Discharge Plan Discharge Clinical Impression: Gall stones Patient Disposition: Home, Self-Care Instructions: Gallstones (ED) Additional Instructions: Recommend follow-up with primary care provider and surgeon. Your CT scan showed gallstones without cholecystitis. You were given copy of the CT scan and lab results. Ct scan shows ALso IUD is Rotated but no peforation. Please follow up with Your OBGYN for removal. Return to the ED immediately for abdominal pain, nausea, vomiting, fever, chills, flank pain, vaginal discharge, vaginal bleeding, inability to tolerate solid food/liquid, or any other concerning symptoms. Prescriptions: New naproxen 500 mg tablet 500 mg PO BID PRN (Reason: pain) 7 Days Qty: 14 0RF oxycodone 5 mg tablet 5 mg PO TID PRN (Reason: pain) 3 Days Qty: 9 0RF Rx Instructions: Partial Fill upon patient request. Referrals: [facility] General Surgeons [Provider Group] ( Gallstones without cholecystitis) Stand Alone Forms: Work/School Release Interventions: ED Discharge Assessment Last Done: 01/31/23 16:28 Discharge Date/Time: 01/31/23 16:29 Print Language: Portuguese
== END 2023-01-31 16:29 | disposition home or self-care (01) ==
PROVIDERS: Physician Assistant; Physician Assistant Medical; Emergency Provider Emergency Medicine
DX: K80.20 Calculus of gallbladder without cholecystitis without obstruction (principal); K50.10 Crohn's disease of large intestine without complications; R10.13 Epigastric pain; Z79.899 Other long term (current) drug therapy
CPT/HCPCS: 36415; 74177; 80053; 81003; 83690; 83735; 84702; 85025; 96361; 96374; 96375; 99284; J2270; J2930; Q9967

== ENCOUNTER → 2023-02-22 14:27 | Outpatient (BNVA) | payer OTHER, SELFPAY | PROVIDERS: PCP Internal Medicine Hepatology; Referring Provider Internal Medicine Hepatology; Visit Provider Surgery | DX: K80.50 Calculus of bile duct without cholangitis or cholecystitis without obstruction (principal) | CPT/HCPCS: 99202 ==

== ENCOUNTER 2023-03-16 05:57 | Day surgery (SDC) | payer OTHER, SELFPAY ==
[2023-03-14 11:21] VITALS: BMI 40.1
--- NOTE | 2023-03-15 08:50 | HO.ANESPROP2 ---
HPI - Anesthesia Eval Consult details Narrative: 27yo F for Cholecystectomy Laparoscopic, Possible Open PMFSH Active Problems Active Problems: All Active Problems (Updated 03/14/23 @ 11:20 by Aurora Joseph RN) Biliary colic (Acute) Past Medical History Medical History Asthma Biliary colic Crohn's disease Gallstones KYLE (obstructive sleep apnea) Family History Family History Daughter Liver cancer Surgical History Surgical History H/O colonoscopy Social History Social History Alcohol intake: never Patient Tobacco Use Status: Never used Tobacco Meds Allergies Allergy/AdvReac Type Severity Reaction Status Date / Time No Known Allergies Allergy Verified 03/16/23 06:07 [No Known Allergies*] Home Medications Medication Instructions Recorded Confirmed Last Taken Type adalimumab 40 mg/0.4 mL 40 mg subcut Q2W 02/22/23 03/16/23 Unknown History subcutaneous pen kit (Humira(CF) Pen) Exam Exam Date and Time: March 15, 2023 0850 Height,Weight and Vital Signs: Height 5 ft 4 in Weight 106.141 kg Pertinent Lab Results Pertinent Lab Results: Laboratory Tests 01/31/23 01/31/23 10:42 10:42 WBC 14.2 H Hgb 12.5 Hct 40.9 Plt Count 455 H Sodium 139 Potassium 4.2 Chloride 108 Carbon Dioxide 24 BUN 7 L Creatinine 0.81 Assessment and Plan Assessment Anesthesia Assessment: Chart Reviewed
[2023-03-16] VITALS (10 sets, daily range): BP systolic 119–150; BP diastolic 45–96; PULSE 83–104; RESP 15–20; TEMP 36.4–36.8; O2SAT 95–99; BMI 40.8
--- OUTSIDE RECORDS SUMMARY | 2023-03-16 06:00 | XMS_ITS | Continuity of Care Document ---
Author Name Unknown Organization [facility] Address [address] [place] [id number]- Care Team Providers Care Therapist Radiation Name Role Phone Ghanshyam GUERRA, Shady Primary Care Physician Encounter [facility] Date(s): 02/02/23 - 03/04/[address] [id number] Allergies, Adverse Reactions, Alerts No Known Allergies Immunizations Given and Recorded Vaccine Date Status Refusal Reason influenza virus vaccine, inactivated 09/18/21 Give n influenza virus vaccine, inactivated 09/03/16 Give n influenza virus vaccine, inactivated 08/22/15 Give n influenza virus vaccine, inactivated 08/26/14 Give n influenza virus vaccine, inactivated 1 01/24/14 Gi katelyn pneumococcal 13-valent vaccine 06/11/19 Given Hepatitis A Adult Vaccine 06/11/19 Given pneumococcal 23-valent vaccine 08/03/14 Given tetanus/diphtheria/pertussis, acel(Tdap) 2 07/05/13 Given tetanus/diphtheria/pertussis, acel(Tdap) 05/23/07 Recorded Varicella Virus Vaccine 06/19/09 Recorded Varicella Virus Vaccine 10/22/99 Recorded Meningitis C Vaccine (oldterm) 05/29/08 Recorded Human Papillomavirus Vaccine 01/23/08 Recorded Human Papillomavirus Vaccine 07/25/07 Recorded Human Papillomavirus Vaccine 05/23/07 Recorded Tetanus Toxoid 07/08/04 Recorded Measles/Mumps/Rubella Virus Vaccine 05/04/00 Recor ded Measles/Mumps/Rubella Virus Vaccine 08/16/96 Recor ded Poliovirus Vaccine, Inactivated 05/01/99 Recorded Poliovirus Vaccine, Inactivated 12/03/96 Recorded Poliovirus Vaccine, Inactivated 95 Recorded Poliovirus Vaccine, Inactivated 95 Recorded Poliovirus Vaccine, Inactivated 95 Recorded diphtheria/tetanus/pertussis, acel(DTaP) 05/01/99 Recorded diphtheria/tetanus/pertussis, acel(DTaP) 12/03/96 Recorded diphtheria/tetanus/pertussis, acel(DTaP) 95 Recorded diphtheria/tetanus/pertussis, acel(DTaP) 95 Recorded diphtheria/tetanus/pertussis, acel(DTaP) 95 Recorded haemophilus b conjugate (PRP-T) vaccine 08/16/96 R ecorded haemophilus b conjugate (PRP-T) vaccine 95 R ecorded haemophilus b conjugate (PRP-T) vaccine 95 R ecorded haemophilus b conjugate (PRP-T) vaccine 95 R ecorded hepatitis B pediatric vaccine 07/04/96 Recorded hepatitis B pediatric vaccine 95 Recorded hepatitis B pediatric vaccine 95 Recorded 1Result Comment: [01/24/2014] vaccine given by Esperanza Stephens 2Admin Note: VIS given-12/14/2011 Medications albuterol CFC free 90 mcg/inh inhalation aerosol 2, puffs, Inhalation, 4 times a day, PRN, # 1 each, Refills 1, Tot. Refills 1, Maintenance, 02/22/22 10:36:00 EDT, Aerosol, Route to Pharmacy Electronically, [id number], [facility]/pharmacy #[id number], 163, cm, 02/22/22 10:24:00 EDT, Hei... Start Date: 02/22/22 Stop Date: 04/23/22 Status: Ordered ferrous sulfate 325 mg oral tablet 1 tablet = 325 mg, By Mouth, Daily, # 90 tablet, 3 Refills, Maintenance, 04/23/21 11:53:00 EDT, Tablet, [facility]/pharmacy #[id number], 163, cm, 03/17/21 13:26:00 EDT, Height, 103.2, kg, 09/05/20 15:56:00 EDT, Dry Weight Start Date: 04/23/21 Status: Ordered Humira Pen 40 mg/0.4 mL subcutaneous kit = 40 mg, Subcutaneous Injection, Every 14 days, # 2 each, 3 Refills, Maintenance, 12/15/22 11:33:00EST, [facility], Partial fill upon patient request if the prescription is for a schedule II opioid drug., 163, cm, 09/16/22 17:38:00 E... Start Date: 12/15/22 Status: Ordered Humira Pen Crohns/Ulcer Colitis/Hidradenitis Suppurativa Starterr Pack 80 mg/0.8 mL subcutaneous ki See Instructions, 160mg on day 1 then 80mg on day 15 then 40mg q14 days starting day 29, # 3 each, 0 Refills, Maintenance, 03/24/21 13:38:00 EDT, [facility], Partial fill upon patient request if the prescription is for a schedule II o... Start Date: 03/24/21 Status: Ordered Infliximab = 5 mg/kg, IV Infusion, Every 8 Weeks, 0 Refills, Maintenance, 01/13/21 11:46:00 EST, Partial fill upon patient request if the prescription is for a schedule II opioid drug. Start Date: 01/13/21 Status: Ordered montelukast 10 mg oral tablet 10 mg, 1, tablet, By Mouth, Daily in PM, # 30 tablet, Refills 1, Tot. Refills 1, Maintenance, 05/27/20 9:58:00 EDT, Route to Pharmacy Electronically, [facility]/pharmacy #[id number], 163, cm, 05/02/20 11:25:00 EDT, Height, 100, kg, 05/02/20 8:23:00 EDT, Dry Weight Start Date: 05/27/20 Stop Date: 07/26/20 Status: Ordered omeprazole 20 mg oral enteric coated capsule 1 capsule = 20 mg, By Mouth, Daily, # 30 capsule, 0 Refills, Maintenance, 09/16/22 17:40:00 EDT, ECCapsule, [facility]/pharmacy #[id number], Partial fill upon patient request if the prescription is for a schedule II opioid drug., 163, cm, 09/16/22 17:38:00 EDT, H... Start Date: 09/16/22 Stop Date: 10/16/22 Status: Ordered Problem List Condition Confirmation Course Effective Dates Status H ealth Status Informant Asthma-Mild intermittent 1 Confirmed Active Obesity, Class II, BMI 35-39.9, no comorbidity Confirmed Active Contraception management Confirmed Active Crohn's disease 2, 3 Confirmed Active History of delivery Confirmed Active History of pre-eclampsia Confirmed Active Severe obesity Confirmed Active Urticaria Confirmed Active 1Exercise induced, as confirmed by PFTs on 03/09/12 2Gastroenterology 150:734 (2016): IBD and 3Obstetrics and Gynecology 126:401 (07/05) Social History Social History Type Response Smoking Status Never smoker entered on: 02/18/15 Sex Patient Care team information Care Team Personnel Name: Shady Morrissey NP Position: [facility] Associate Professional Member Role: PCP Address: Address: [address] [place] [id number]- Name: Tiffanie Delaney RN Position: S RN Member Role: Primary Care Nurse Name: Lynn Blair LPN Position: [facility] OB RN Member Role: Primary Care Nurse Name: Cherie Vences RN Position: [facility] RN Supv Member Role: Primary Care Nurse Name: Farzana Cruz Position: [facility] OB RN Member Role: Primary Care Nurse Name: Vita Jacobo RN Position: S RN Member Role: Primary Care Nurse Name: Alex Diaz Position: S RN Member Role: Primary Care Nurse Name: Melany Brenner RN Position: [facility] RN Member Role: Primary Care Nurse Care Team Related Persons Name: MARVA SINGH Address: [id number] Address: [address] [place] [address] [place] Name: RODRÍGUEZASPEN PAYNE Address: home [id number] [id number] Name: VITA BUNN Address: home [address] [address]
[2023-03-16 06:26] LABS: UPreg QC Valid YES; Urine Pregnancy NEGATIVE (NEGATIVE)
[2023-03-16] MEDS: Lactated Ringers 1,000 ML 100 ML IVCONT (06:36)
--- NOTE | 2023-03-16 07:12 | HO.ANESPROP2 ---
[facility] Active Problems Active Problems: All Active Problems (Updated 03/16/23 @ 06:37 by Magaly Tracey RN) Biliary colic (Acute) Past Medical History Medical History Asthma Biliary colic Crohn's disease Gallstones KYLE (obstructive sleep apnea) Family History Family History Daughter Liver cancer Surgical History Surgical History H/O colonoscopy Social History Social History Alcohol intake: never Patient Tobacco Use Status: Never used Tobacco Use of substances other than those prescribed or required for medical reasons: No Are you DNR?: No Advance Directives: No Advance Directives Information Provided: Yes Meds Allergies Allergy/AdvReac Type Severity Reaction Status Date / Time No Known Allergies Allergy Verified 03/16/23 06:07 [No Known Allergies*] Active Medications: Current Medications Lactated Ringer's (Lr) 1,000 mls @ 100 mls/hr IVCONT .Q10H ALYSSA Last Admin: 03/16/23 06:36 Dose: 100 mls/hr Home Medications Medication Instructions Recorded Confirmed Last Taken Type adalimumab 40 mg/0.4 mL 40 mg subcut Q2W 02/22/23 03/16/23 Unknown History subcutaneous pen kit (Humira(CF) Pen) Exam Exam Date and Time: March 16, 2023 0712 Height,Weight and Vital Signs: Height 5 ft 4 in Weight 107.955 kg Last Vital Signs Temp 97.5 F 03/16/23 06:26 Pulse 91 03/16/23 06:26 Resp 15 03/16/23 06:26 BP 144/96 H 03/16/23 06:26 Pulse Ox 97 03/16/23 06:26 O2 Del Method Room Air 03/16/23 06:26 Pertinent Lab Results Pertinent Lab Results: Laboratory Tests 03/16/23 06:15 Urine Test NEGATIVE Airway Mallampati Class: II TM Dist: >3cm Neck ROM: Full Heart: RRR Lungs: CTA Assessment and Plan Final Anesthetic Review ASA Class: II Final Preanesthetic Review: Meds/Allgs Chart Reviewed, Consent Obtained/Reviewed and Anes Risks/Benef Reviewed Patient Risk: Intermediate Procedure Risk: Intermediate Anesthetic Plan Anesthetic Plan: GA Disposition: Standard PACU
--- NOTE | 2023-03-16 07:22 | MHC.SHP ---
Pre-Procedural Eval Section A Date of Service: 03/16/23 The patient is an INPATIENT: No Changes since office visit: Yes Patient answered all questions; No Cold of Flu in the past 2 weeks, No New Medical Problems and No Changes in Medication The History & Physical has been completed within 30 days and I have reviewed it.: Yes Section B Chief Complaint: Calculus of bile duct without cholangitis or anton Allergies: Allergies Allergy/AdvReac Type Severity Reaction Status Date / Time No Known Allergies Allergy Verified 03/16/23 06:07 [No Known Allergies*] Plan Diagnosis/Plan: Unchanged I have reviewed the history and physical and performed a pertinent physical examination on my patient. No changes have occurred unless specified. Time Spent With Patient Time: Total time managing care of this patient today ____ minutes.
--- NOTE | 2023-03-16 07:36 | P.OP_ITS ---
Operative Note Operative Note Date of Service: 03/16/23 Narrative: Preoperative diagnosis: biliary colic, cholelithiasis Postoperative diagnosis: Same Procedure: Laparoscopic cholecystectomy Surgeon: Jacobo Torres MD [employer] Straightener Stamper: PRECIOUS Lockhart Anesthesia: General endotracheal Indications for procedure: 27-year-old female patient with history of Crohn's disease presenting with complaints of abdominal pain in the right upper quadrant found to have a large gallstone within the gallbladder. Symptoms are episodic and consistent with biliary colic. Operative findings: Large gallstone within the gallbladder with minimal inflammation. Specimen: gallbladder Estimated blood loss: Less than 2 mL Complications: none Procedure details: Patient was brought to the OR and placed in a supine position. After administering general anesthesia the patient's abdomen was prepped with ChloraPrep and draped in a sterile fashion. Local anesthesia consisting of 0.5% Sensorcaine without epinephrine was infiltrated in a periumbilical region. A 5 mm incision was made above the umbilicus in a transverse fashion. The Veress needle was then inserted while elevating abdominal cavity with towel clips. After positive drop test the abdomen was insufflated to a pressure of 15 mm of mercury. The Veress needle was then removed and a 5 mm trocar inserted. The camera was inserted in the abdomen explored. A 12 mm trocar was then placed in the epigastrium. Two 5 mm trocars placed in the right upper quadrant by the clinical project assistant. The patient was placed in reverse Trendelenburg positioning and rotated to the left. The gallbladder was grasped with the fundus and retracted cephalad by the clinical project assistant. The infundibulum was then grasped and retracted away from the liver bed, also by the clinical project assistant. The Dolphin dissected was then used by the surgeon to dissect the peritoneum off the infundibulum to reveal the junction with the cystic duct. Cystic artery was noted slightly medial and posterior to the cystic duct. After obtaining a critical view the cystic duct was doubly clipped and divided. The cystic artery was then doubly clipped and divided. The gallbladder was then dissected off the liver bed using electrocautery with an L hook. Hemostasis was assured all times using the electrocautery. When the gallbladder is completely dissected off the liver bed was placed in an Endo-Catch bag and brought out through the epigastric incision. The gallbladder was sent to pathology for further examination. The abdomen was then re-examined. The liver bed was irrigated and suctioned dry. No bleeding or bile leak could be identified. CO2 was then evacuated and all trocars removed. Fascia was closed at the epigastric incision using a [id number] 0 Polysorb suture. Skin was closed in all incisions using a subcuticular 4 0 Polysorb suture by both the surgeon and clinical project assistant. Sterile dressings consisting of Steri-Strips, 2 x 2 gauze, and Tegaderm were then applied. The patient tolerated the procedure well. Sponge instrument and needle counts reported as correct. The patient was transferred to PACU in stable condition.
[2023-03-16] MEDS: fentaNYL citrate/PF 100 MCG/2 ML VIAL 25 MCG IVPUSH ×3 (08:54→09:10)
[2023-03-16] MEDS: Acetaminophen 1,000 MG/100 ML PIGGYBACK 400 MG IV (08:55)
[2023-03-16] MEDS: oxyCODONE HCl Immed Release 5 MG TABLET PO (09:20)
[2023-03-16] MEDS: ondansetron HCL 4 MG/2 ML VIAL IVPUSH (09:35)
== END 2023-03-16 10:38 | disposition home or self-care (01) ==
PROVIDERS: Nurse Practitioner; Visit Provider Surgery
PROC: 0FT44ZZ Resection of Gallbladder, Percutaneous Endoscopic Approach (ICD-10-PCS; CPT 47562; principal; 2023-03-16 07:30)
DX: K80.10 Calculus of gallbladder with chronic cholecystitis without obstruction (principal); K50.919 Crohn's disease, unspecified, with unspecified complications; J45.909 Unspecified asthma, uncomplicated; G47.33 Obstructive sleep apnea (adult) (pediatric); Z79.899 Other long term (current) drug therapy
CPT/HCPCS: 47562; 81025; 88304; J0131; J1100; J2250; J2405; J3010

== ENCOUNTER → 2023-03-29 10:19 | Outpatient (BNVA) | payer OTHER, SELFPAY | PROVIDERS: PCP Nurse Practitioner Family; Visit Provider Physician Assistant Surgical | DX: Z09 Encounter for follow-up examination after completed treatment for conditions other than malignant neoplasm (principal); Z90.49 Acquired absence of other specified parts of digestive tract | CPT/HCPCS: 99212 ==

== ENCOUNTER 2024-01-08 17:53 | Emergency (ER) | payer OTHER, SELFPAY ==
[2024-01-08 18:15] VITALS: BP 138/87; PULSE 124; RESP 20; TEMP 37.4; O2SAT 98; BMI 37.5
--- NOTE | 2024-01-08 18:20 | ED_ITS ---
HPI - General Adult General Chief complaint: General Medical Stated complaint: flu? head pain Time Seen by Provider: 01/08/24 18:35 Source: patient Mode of arrival: ambulatory Limitations: no limitations History of Present Illness HPI narrative: 28 year old female presents to the ED today for evaluation of body aches, chills, right ear pain, cough, nausea, vomiting x1 day. She has been taking Mucinex at home without relief. She admits that her son at home tested positive for influenza 4 days ago. Denies documented fevers, rashes, chest pain, shortness of breath, dyspnea, wheezing, lower extremity pain/tenderness. Denies recent travel or long car rides. Up-to-date on vaccinations. Denies chance of . Related Data Home Medications Medication Instructions Recorded Confirmed adalimumab 40 mg/0.4 mL 40 mg subcut Q2W 02/22/23 03/16/23 subcutaneous pen kit (Humira(CF) Pen) Previous Rx's Medication Instructions Recorded oxycodone 5 mg tablet 5 mg PO Q6H PRN pain (scale score 03/16/23 7-10) #15 tabs amoxicillin 875 mg-potassium 1 tab PO BID 7 days #14 tabs 01/08/24 clavulanate 125 mg tablet benzocaine 15 mg-menthol 2.6 mg 1 yves mucous membrane Q2-4H PRN 01/08/24 lozenges (Cepacol Sore Throat sore throat #16 ea (benzocaine-menthol)) benzonatate 100 mg capsule 100 mg PO BID PRN cough #20 caps 01/08/24 ondansetron 4 mg disintegrating 4 mg PO DAILY PRN nausea and 01/08/24 tablet vomiting 5 days #10 tabs Allergies Allergy/AdvReac Type Severity Reaction Status Date / Time No Known Allergies Allergy Verified 01/08/24 18:13 [No Known Allergies*] Review of Systems Review of Systems: Constitutional: +fever, +chills, fatigue, No night sweats, weight changes ENT/Mouth: +riight ear pain, Nohearing loss, nasal congestion, sinus pain, r hinorrhea, +sore throat, + odynophagia, No dysphagia Eyes: No eye pain, swelling, redness, vision changes, discharge Cardio: No chest pain, palpitations, MCCARTNEY, orthopnea, peripheral edema Pulm: No SOB, cough, sputum, wheezing, dyspnea, hemoptysis GI: +nausea, +vomiting, No hematemesis, abdominal pain, diarrhea, constipation, hematochezia, melena : No irregular bleeding, dysuria, frequency, urgency, hesitancy, hematuria, flank pain, urinary flow changes, urinary incontinence or retention MSK: No back pain, neck pain, joint pain, +myalgias Skin: No lesions, rashes Neuro: No weakness, numbness, paresthesias, LOC, dizziness, headache All other systems reviewed and are negative. [facility] Past Medical History Attestation statement: The following information was validated with the patient. Source: old records reviewed and nursing notes reviewed Medical History KYLE (obstructive sleep apnea) Asthma Crohn's disease Biliary colic Gallstones Surgical History Hx laparoscopic cholecystectomy (03/16/23) H/O colonoscopy Family History Family History Daughter Liver cancer Social History Social History Alcohol intake: never Patient Tobacco Use Status: Never used Tobacco Smoked in Last 30 Days: No Use of substances other than those prescribed or required for medical reasons: No Advance Directives: No Advance Directives Information Provided: No Patient : No Physical Exam ED Vital Signs: Vital Signs - 24 hr 01/08/24 18:15 01/08/24 18:54 Temperature 99.4 F 100.9 F H Pulse Rate 124 H Respiratory Rate 20 Blood Pressure 138/87 Pulse Oximetry 98 Oxygen Delivery Method Room Air BMI result Body Mass Index 37.5 Patient tachycardic likely secondary to fever. Const Other: + patient rolling around in bed complaining her body aches General: cooperative and no acute distress Orientation/consciousness: patient oriented x3 Limitations: no limitations HENMT Other: + no pain on manipulation of left pinna, tragus. No mastoid tenderness. Left EAC without erythema or edema. No discharge. TM intact without perforation, effusion or bulging. + pain on manipulation of right pinna. No tragus tenderness. No mastoid tenderness. Right EAC erythematous, no edema. No discharge. TM intact however bulging and erythematous. + posterior oropharynx erythematous. No edema no tonsillar exudates. Uvula is midline. Controlling secretions and speaking complete sentences. Head: Yes normal to inspection, Yes normocephalic and Yes atraumatic Eyes General: appearance normal, both eyes and all related structures Conjunctivae: conjunctivae normal Sclerae: sclerae normal Pupils: Equal, round and reactive pupils present Neck Neck: Yes normal visual inspection, Yes no lymphadenopathy and Yes no meningeal signs Resp Effort & Inspection: normal respiratory effort and able to speak in complete sentences Auscultation: clear to auscultation bilaterally Cardio Rate: regular rate Rhythm: regular rhythm GI Inspection: Yes normal to inspection Palpation (GI): Soft to palpation and nontender Auscultation: normal bowel sounds Skin General skin exam: no rashes or lesions noted Neuro General: patient oriented x3, gait normal and no meningeal signs Cranial nerves: Yes Equal, round and reactive pupils present Extrem General: Yes no calf tenderness Course Course Course Narrative: RME:?28 yo female here for eval of body aches, chills, right ear pain, N/V x1 day. taking mucinex at home. son test positive for flu 4 days ago. no documented fevers. viral swabs ordered. Full HPI, ROS and PE to be performed by the primary ED provider. Reevaluation(s) Reevaluation #1: [id number]-- Patient has tested positive for influenza A. She has received Zofran and Tylenol in the ED for nausea and fever. In addition, patient's physical exam findings are consistent with right otitis media. Given that the pharmacy is closed, I will administer one dose of Augmentin in ED. will send the rest of the script to pharmacy for her to complete over the next 7 days. She is currently tolerating crackers and gali kilo after receiving zofran. I discussed all workup results and treatment plan with patient. Discussed worrisome signs and symptoms of when to return to the ED. all questions answered at this time. Patient has remained stable throughout her visit today. Patient is agreeable with disposition and stable for discharge. Medications Administered Discontinued Medications Generic Name Dose Route Start Last Admin Trade Name Freq PRN Reason Stop Dose Admin Acetaminophen 975 mg 01/08/24 19:16 01/08/24 19:23 Acetaminophen 325 Mg Tablet PO 01/08/24 19:17 975 mg ONCE ONE Administration Amoxicillin/Clavulanate Potassium 875 mg 01/08/24 19:32 01/08/24 19:55 Amoxicillin/Potassium Clav 875 Mg Tablet PO 01/08/24 19:33 875 mg ONCE ONE Administration Ondansetron HCl 4 mg 01/08/24 19:33 01/08/24 19:55 Ondansetron Odt 4 Mg Tab.Desdis TRANSLINGU 01/08/24 19:34 4 mg ONCE ONE Administration Medical Decision Making Medical Decision Making [facility] Narrative: 28 year old female presents to the ED today for evaluation of body aches, chills, right ear pain, cough, nausea, vomiting x1 day. Patient is tachycardic to 124. This is likely attributable to fever along with patient's inability to stay still in bed, rolling around. I do not suspect pulmonary embolism or acute cardiac event. On exam, patient dry heaving. No vomiting. Abdomen is soft, nontender to palpation. Normoactive bowel sounds x4. There is pain on manipulation of right pinna. No mastoid tenderness. Right EAC erythematous without edema. TM intact, erythematous and bulging. Lungs are CTA bilaterally. No wheezes or rhonchi. Clinical suspicion for viral syndrome, gastroenteritis. Concern for otitis media vs otitis externa. Lower suspicion for strep throat, mono, [employer], retropharyngeal abscess, epiglottitis, pneumonia. Unlikely malignant otitis media, mastoiditis, TM perforation. Serology ordered in triage. Will review and re-evaluate patient Differential Diagnosis Differential Diagnoses: The differential diagnosis associated with the presentation includes as above. Admission/Observation not indicated. Lab Data [facility] Lab Attestation statement: I reviewed the patient's lab results. as above. Labs: Lab Results 01/08/24 Range/Units 18:24 Influenza Type A (PCR) POSITIVE A (Negative) Influenza Type B (PCR) NEGATIVE (Negative) RSV RNA Qual (PCR) NEGATIVE (Negative) SARS-CoV-2 RNA (RT-PCR) NEGATIVE (Negative) External Record Review External record reviewed: Inpatient record, Office record, Outpatient record, Prior outpatient labs, Prior outpatient radiology, Primary care record and Outside ED record Prescription Management I considered prescription management with: Pain Medication, Antibiotic (Augmentin) and Other (Cepacol, Tessalon Perles, zofran) Social Determinants Patient?s care significantly limited by Social Determinants of Health including: Other Social Determinant of Health Discharge Plan Discharge Clinical Impression: Influenza A Otitis media Qualifiers: Chronicity: acute Laterality: right Patient Disposition: Home, Self-Care Instructions: Amoxicillin/Clavulanate Potassium (By mouth), How to Use Ear Drops (ED), Influenza (ED), Flu Shot (Vaccine) for Adults (ED), Ear Infection (ED) Additional Instructions: You tested positive for influenza A today. This is a virus and treatment for this is symptomatic. This does not require treatment with antibiotics. Influenza can last anywhere between 5-7 days. You are contagious. Limit contact with others. Amalia Colindres have been sent to your pharmacy for cough. Cepacol throat lozenges have been sent to your pharmacy for sore throat. Zofran has been sent to your pharmacy for nausea/vomiting. Alter ibuprofen and Tylenol for fevers and body aches. In addition you have a right ear infection. You were given 1 dose of Augmentin, an antibiotic, in the ED. You need to take this twice daily over the next 7 days. Do not stop taking this early or skip any doses, even if you begin to feel better, as this may cause infection to return or worsen. Please follow-up with your PCP as needed. If symptoms persist or worsen please return to the emergency department. The case of an emergency call 911. Prescriptions: New amoxicillin-pot clavulanate 875-125 mg tablet 1 tab PO BID 7 Days Qty: 14 0RF benzonatate 100 mg capsule 100 mg PO BID PRN (Reason: cough) Qty: 20 0RF Cepacol Sore Throat (reynaldo-men) 15-2.6 mg lozenge 1 yves mucous membrane Q2-4H PRN (Reason: sore throat) Qty: 16 0RF ondansetron 4 mg tablet,disintegrating 4 mg PO DAILY PRN (Reason: nausea and vomiting) 5 Days Qty: 10 0RF No Action oxycodone 5 mg tablet 5 mg PO Q6H PRN (Reason: pain (scale score 7-10)) Qty: 15 0RF Rx Instructions: Partial Fill upon patient request. Humira(CF) Pen 40 mg/0.4 mL pen injector kit 40 mg subcut Q2W [place] [facility] [place] [facility] [place]] [facility] Group] Stand Alone Forms: Work/School Release Interventions: ED Discharge Assessment Last Done: 01/08/24 19:55 Discharge Date/Time: 01/08/24 20:03
--- OUTSIDE RECORDS SUMMARY | 2024-01-08 18:43 | XMS_ITS | Continuity of Care Document ---
Author Name Unknown Organization [facility] ter Address [address] [place] [id number]- Care Team Providers Care Installation Supervisor Name Role Phone Ghanshyam GUERRA, Shady Primary Care Phys[place] [facility] [place]): [place] - 04/21/[address] [address]- Discharge Disposition: A-D/C Home Attending Physician: Michael Sheth MD Admitting Physician: Michael Sheth MD Referring Physician: Michael Sheth MD Allergies, Adverse Reactions, Alerts No Known Allergies [...] 10:36:00 EDT, Aerosol, Route to Pharmacy Electronically, [id number], [facility]/pharmacy #[id number], 163, cm, 02/22/22 10:24:00 EDT, Hei... Start Date: 02/22/22 Stop Date: 04/23/22 Status: Ordered ferrous sulfate 325 mg oral tablet 1 tablet = 325 mg, By Mouth, Daily, # 30 tablet, 11 Refills, Maintenance, 03/16/23 14:50:00 EDT, Tablet, [facility]/pharmacy #[id number], 163, cm, 03/14/23 9:21:00 EDT, Height Start Date: 03/16/23 Status: Ordered Humira Pen 40 mg/0.4 mL subcutaneous kit = 40 mg, Subcutaneous Injection, Every 14 days, # 2 each, 3 Refills, Maintenance, 04/01/23 11:05:00EDT, [facility], Partial fill upon patient request if the prescription is for a schedule II opioid drug., 163, cm, 03/14/23 9:21:00 ED... Start Date: 04/01/23 Status: Ordered Humira Pen Crohns/Ulcer Colitis/Hidradenitis Suppurativa Starterr Pack 80 mg/0.8 mL subcutaneous ki See Instructions, 160mg on day 1 then 80mg on day 15 then 40mg q14 days starting day 29, # 3 each, 0 Refills, Maintenance, 03/24/21 13:38:00 EDT, [facility], Partial fill upon patient [...] [id number], 163, cm, 05/02/20 11:25:00 EDT, Height, 100, kg, 05/02/20 8:23:00 EDT, Dry Weight Start Date: 05/27/20 Stop Date: 07/26/20 Status: Ordered Vitamin D3 1000 intl units oral capsule 1 capsule = 25 mcg, By Mouth, Daily, # 75 capsule, 3 Refills, Maintenance, 03/16/23 14:53:00 EDT, Capsule, [facility]/pharmacy #[id number], Partial fill upon patient request if the prescription is for a schedule II opioid drug., 163, cm, 03/14/23 9:21:00 EDT, Height Start Date: 03/16/23 Status: Ordered Problem List Condition Confirmation Course Effective Dates Status H ealth Status Informant Asthma-Mild intermittent 1 Confirmed Active Obesity, Class II, BMI 35-39.9, no comorbidity Confirmed Active Contraception management Confirmed Active Crohn's disease 2, 3 Confirmed Active History of delivery Confirmed Active S/P laparoscopic cholecystectomy Confirmed Active History of pre-eclampsia Confirmed Active Severe obesity Confirmed Active Urticaria Confirmed Active 1Exercise induced, as confirmed by PFTs on 03/09/12 2Gastroenterology 150:734 (2015): IBD and 3Obstetrics and Gynecology 126:401 (07/05) Procedures Procedure Date Related Diagnosis Body Site Status Esophagogastroduodenoscopy w ith insertion of guide wire and dilation of esophagus 04/21/23 Completed Vital Signs Most recent to oldest [Reference Range]: 1 2 3 Height 163 cm (04/21/23 7:25 AM) Oxygen Saturation [94-100 %] 98 % (04/21/23 8:37 AM) 95 % (04/21/23 8:26 AM) 99 % (04/21/23 7:25 AM) Pulse Rate [55-90 bpm] 82 bpm (04/21/23 7:25 AM) Blood Pressure [90-138/55-84 mm Hg] 128/78mm Hg (04/21/23 8:37 AM) 116/76mm Hg (04/21/23 8:26 AM) 140/93mm Hg *H* (04/21/23 7:25 AM) Respiratory Rate [16-30 br/min] 12 br/min *L* (04/21/23 8:37 AM) 18 br/min (04/21/23 8:26 AM) 16 br/min (04/21/23 7:25 AM) Temperature [96.8-100.4 DegF] 98.7 DegF (04/21/23 7:25 AM) Mode of Delivery (Oxygen) Room air (04/21/23 8:37 AM) Room air (04/21/23 8:26 AM) Room air (04/21/23 7:25 AM) Temperature Route Temporal (04/21/23 7:25 AM) Dry Weight 104 kg (04/21/23 7:25 AM) Social History Social History Type Response Smoking Status Never smoker entered on: 02/18/15 Sex Endoscopy study * Event Display: GG EGD Please click on pdf link to open report Note * Enedelia Mcguire RN: PERFORM Event Display: Discharge/Transfer Note Hospital Authored Date: [id number] Nursing Discharge Note Entered On: 04/21/2023 8:22 EDT Performed On: 04/21/2023 8:22 EDT by Enedelia Mcguire RN Nursing Discharge Note 2 Discharge Time : 04/21/2023 9:00 EDT Enedelia Mcguire RN - 04/21/2023 9:00 EDT Discharge Level of Care at Discharge : Home/[facility] Patient Left Unit Via : Wheelchair Patient Accompanied Off Unit with : Responsible adult DC Instructions Provided & Signed by Pt : Yes Patient Understands D/C Instructions : Yes Patient Instructions Discharge Signed : Yes Did Pt have Specialty Bed or Wound Vac : No Enedelia Mcguire RN - 04/21/2023 8:22 EDT * Enedelia Mcguire RN: PERFORM Event Display: Patient Education/Instruction Authored Date: [id number] Inpatient Adult Discharge Instructions [address] [address] Name: LEOBARDO ARRIOLA : 1995 Visit: 04/21/2023 07:09:00 Current Date: 04/21/2023 08:54 Account: [id number] Inpatient Adult Discharge Instructions We would like to thank you for allowing us to assist you with your healthcare needs. The following includes patient education materials and information regarding your injury/illness. Our entire staffstrives to provide an excellent experience for our patients and their families. PLEASE ENSURE YOU FOLLOW-UP PER THE INSTRUCTIONS BELOW! ?? YOUR OPINION IS IMPORTANT TO US! Please complete the survey you may receive by mail or email. Your feedback will be used to make improvements to the healthcare experiences of our patients and their families. Surveys are administered by [employer] ?? If further treatment with your primary care physician or another doctor is recommended, it is important for you to keep the appointment. Call your primary care physician or return to the Emergency Department immediately if your condition worsens, fails to improve, or new symptoms develop. If you need to find a doctor, you can call [facility] for a referral at [phone] or toll free at [phone] ([phone]) or log in to [email or web address].. ?? You can view and manage your care through the patient portal or by using a health care javier of your choosing. [employer] is a website that allows you to securely view your medical information including your hospital discharge summary, office visit summaries, medications and follow-up visits. You can also request appointments, renew medications, and request access to your medical information using a health care javier of your choosing, or just ask a question. You can enroll at [email or web address] or register during your next office visit. You have been discharged from [facility], Patient Care Unit: ENDO. If you have any questions regarding these instructions after you leave, please call us and we will be happy to assist you. [facility] Your Care Team Attending Physician Meryl PAULA, Michael Discharging Providers Elva PAULA, Oscar Sunshine Reason for Your Visit DYSPHAGIA Tests Performed Below is a partial list of the tests performed during your hospitalization. You may have had other tests and procedures not included in this list. Please discuss all test results with your provider. Primary Care Provider Shady Morrissey NP Advance Directive . Discharge Vitals Temperature: 98.7 DegF Height: 163 cm Pulse Rate: 82 bpm ?? Respiratory Rate:??12 br/min??Low ?? Systolic Blood Pressure: 128 mm Hg ?? Diastolic Blood Pressure: 78 mm Hg ?? Oxygen Saturation: 98 % ?? Studies Pending All tests and labs ordered during this hospital stay have been completed unless listed below. Please discuss all pending results with your provider listed above in these instructions. ?? No incomplete studies found What to do next Instructions From Your Doctor Discharge Orders Scheduled Follow-Up Appointments Tuesday 3:00 PM EDT ?? With: Latrice GUERRA, Donna Horne Where: [facility] [address] [address]- Status: Pending You Need to Schedule the Following Appointments Follow Up with??follow up with primary care doctor as needed Follow Up with??Shady Morrissey When:??In 0 days Discharge Medications LEOBARDO ARRIOLA :1995 Visit Date:04/21/2023 Medications: Please continue your medications until treatment is completed or stopped by your provider. Medications not listed below should be discontinued. Discuss any questions related to medications with your provider. What How Much When Instructions Next Dose Unchanged Adalimumab (Humira Pen 40 mg/ 0.4 mL subcutaneous kit) 40 Milligram Subcutaneous Injection Every 14 days Unchanged Adalimumab (Humira Pen Crohns/ Ulcer Colitis/ Hidradenitis Suppurativa Starterr Pack 80 mg/ 0.8 mL subcutaneous ki) See instructions 160mg on day 1 then 80mg on day 15 then 40mg q14 days starting day 29 ?? Unchanged Albuterol (albuterol CFC free 90 mcg/ inh inhalation aerosol) 2 puff(s) Inhalation 4 times a day as needed for for wheezing Duration: 30 Days Unchanged Cholecalciferol (Vitamin D3 1000 intl units oral capsule) 1 capsule Oral Daily Unchanged Ferrous Sulfate (ferrous sulfate 325 mg oral tablet) 1 tab(s) Oral Daily Unchanged Infliximab 5 Milligrams/Kilogram Intravenous Infusion Every 8 Weeks Unchanged Montelukast (montelukast 10 mg oral tablet) 1 tab(s) Oral Daily in PM Duration: 30 Days Test Results Below is a partial list of the most recent Laboratory test results done prior to this discharge. You may have had other tests and procedures not included in this list. Please discuss all test resultswith your provider. Allergies (NKA means No Known Allergies) NKA Problems Active Problems??(9) Asthma-Mild intermittent?? Contraception management?? Crohn's disease?? History of pre-eclampsia?? History of delivery?? Obesity, Class II, BMI 35-39.9, no comorbidity?? S/P laparoscopic cholecystectomy?? Severe obesity?? Urticaria?? Education Materials Below is the list of Educational Leaflet Providered with your Discharge Instructions. Surgery Medical Daystay Surgical Overnight Discharge Instructions?? Valuables and Belongings I fully understand and agree that [facility] accepts no responsibility for all my personal property including clothing, toilet articles, radios, jewelry, dentures, hearing aids, rings, money, or any other property that is in my possession or is brought to me after admission. I understand certain valuables may be placed in a hospital safe for a short period of time. I understand that the hospital is not liable for loss or damage due to accident, fire, or other natural occurrence while said property is in the safe. I accept full responsibility for any personal property that I keep with me, and will not hold the hospital responsible in case of loss or disappearance. I acknowledge that i have been encouraged to send valuables and belongings home. ?? Date for Pt to Sign Valuables/Belongings: 04/21/23 07:25:00 ?? Valuables & Belongings ?? Clothes Electronic devices Jewelry Monetary Items Personal devices Miscellaneous Medications (Valuables) Valuables at Bedside ?? Cell phone ? Valuables Sent Home ? Valuables Sent to Security ? Other Discharge Information ? Case Management Discharge Plan?? Discharge Plan?? Discharge Level of Care at Discharge: Home/[facility] ?? Pulmonary Rehab Status?? Pulmonary Rehab Discharge Status?? Respiratory Rate:??12 br/min??Low ? Common Emergency Awareness Tips IS IT A STROKE? Act FAST and Check for these signs: FACE Does the face look uneven? ARM Does one arm drift down? SPEECH Does their speech sound strange? TIME Call at any sign of stroke ?? Heart Attack Signs Chest discomfort: Most heart attacks involve discomfort in the center of the chest and lasts more than a few minutes, or goes away and comes back. It can feel like uncomfortable pressure, squeezing, fullness or pain. Discomfort in upper body: Symptoms can include pain or discomfort in one or both arms, back, neck, jaw or stomach. Shortness of breath: With or without discomfort. Other signs: Breaking out in a cold sweat, nausea, or lightheaded. Remember, MINUTES DO MATTER. If you experience any of these heart attack warning signs, call to get immediate medical attention! ?? Smoking can increase your chances of developing chronic health problems and can cause harmful effects to other family members in your house. If you smoke, you are strongly encouraged to quit. Please call [employer] Link at [phone] or [phone] ([phone]) or log in to [email or web address] for referrals to smoking cessation programs. ?? 379 Suicide & Crisis Lifeline is available 13/06 if you or someone you know needs to find a reason to keep living. By calling 124 you'll be connected to a skilled, trained counselor at a crisis center in your area. INPATIENT DISCHARGE INSTRUCTIONS SIGNATURE PAGE LEOBARDO ARRIOLA Location:[facility] Registration Date and Time:04/21/2023 07:09 EDT Primary Care Physician: Shady Morrissey NP, Attending Physician: Michael Sheth MD, I LEOBARDO ARRIOLA, have received the above patient education materials/instructions and have verbalized understanding. If ambulance or transport services are being used I further acknowledge being given a choice of service. ?? If you need to contact me, please call me at this number: . Patient/Advanced Seal Delivery System Name: Patient/Advanced Seal Delivery System Signature: Relationship to Patient: Witness Name/Signature: Date: * Enedelia Mcguire RN: PERFORM Event Display: Patient Education/Instruction Authored Date: [id number] Inpatient Adult Discharge Instructions [address] [address] Name: LEOBARDO ARRIOLA : 1995 Visit: 04/21/2023 07:09:00 Current Date: 04/21/2023 08:54 Account: [id number] Inpatient Adult Discharge Instructions We would like to thank you for allowing us to assist you with your healthcare needs. The following includes patient education materials and information regarding your injury/illness. Our entire staffstrives to provide an excellent experience for our patients and their families. PLEASE ENSURE YOU FOLLOW-UP PER THE INSTRUCTIONS BELOW! ?? YOUR OPINION IS IMPORTANT TO US! Please complete the survey you may receive by mail or email. Your feedback will be used to make improvements to the healthcare experiences of our patients and their families. Surveys are administered by [employer]. ?? If further treatment with your primary care physician or another doctor is recommended, it is important for you to keep the appointment. Call your primary care physician or return to the Emergency Department immediately if your condition worsens, fails to improve, or new symptoms develop. If you need to find a doctor, you can call [facility] [place] for a referral at [phone] or toll free at [phone] [phone] ([phone]) or log in to [email or web address].. ?? You can view and manage your care through the patient portal or by using a health care javier of your choosing. [employer] is a website that allows you to securely view your medical information including your hospital discharge summary, office visit summaries, medications and follow-up visits. You can also request appointments, renew medications, and request access to your medical information using a health care javier of your choosing, or just ask a question. You can enroll at [email or web address] or register during your next office visit. You have been discharged from [facility], Patient Care Unit: ENDO. If you have any questions regarding these instructions after you leave, please call us and we will be happy to assist you. [facility] Your Care Team Attending Physician Meryl PAULA, Michael Discharging Providers Elva PAULA, Oscar Sunshine Reason for Your Visit DYSPHAGIA Tests Performed Below is a partial list of the tests performed during your hospitalization. You may have had other tests and procedures not included in this list. Please discuss all test results with your provider. Primary Care Provider Ghanshyam GUERRA, Shady Advance Directive . Discharge Vitals Temperature: 98.7 DegF Height: 163 cm Pulse Rate: 82 bpm ?? Respiratory Rate:??12 br/min??Low ?? Systolic Blood Pressure: 128 mm Hg ?? Diastolic Blood Pressure: 78 mm Hg ?? Oxygen Saturation: 98 % ?? Studies Pending All tests and labs ordered during this hospital stay have been completed unless listed below. Please discuss all pending results with your provider listed above in these instructions. ?? No incomplete studies found What to do next Instructions From Your Doctor Discharge Orders Scheduled Follow-Up Appointments Tuesday 3:00 PM EDT ?? With: Latrice GUERRA, Donna Horne Where: [place] [address]- Status: Pending You Need to Schedule the Following Appointments Follow Up with??follow up with primary care doctor as needed Follow Up with??Shady Morrissey When:??In 0 days Discharge Medications LEOBARDO ARRIOLA :1995 Visit Date:04/21/2023 Medications: Please continue your medications until treatment is completed or stopped by your provider. Medications not listed below should be discontinued. Discuss any questions related to medications with your provider. What How Much When Instructions Next Dose Unchanged Adalimumab (Humira Pen 40 mg/ 0.4 mL subcutaneous kit) 40 Milligram Subcutaneous Injection Every 14 days Unchanged Adalimumab (Humira Pen Crohns/ Ulcer Colitis/ Hidradenitis Suppurativa Starterr Pack 80 mg/ 0.8 mL subcutaneous ki) See instructions 160mg on day 1 then 80mg on day 15 then 40mg q14 days starting day 29 ?? Unchanged Albuterol (albuterol CFC free 90 mcg/ inh inhalation aerosol) 2 puff(s) Inhalation 4 times a day as needed for for wheezing Duration: 30 Days Unchanged Cholecalciferol (Vitamin D3 1000 intl units oral capsule) 1 capsule Oral Daily Unchanged Ferrous Sulfate (ferrous sulfate 325 mg oral tablet) 1 tab(s) Oral Daily Unchanged Infliximab 5 Milligrams/Kilogram Intravenous Infusion Every 8 Weeks Unchanged Montelukast (montelukast 10 mg oral tablet) 1 tab(s) Oral Daily in PM Duration: 30 Days Test Results Below is a partial list of the most recent Laboratory test results done prior to this discharge. You may have had other tests and procedures not included in this list. Please discuss all test resultswith your provider. Allergies (NKA means No Known Allergies) NKA Problems Active Problems??(9) Asthma-Mild intermittent?? Contraception management?? Crohn's disease?? History of pre-eclampsia?? History of delivery?? Obesity, Class II, BMI 35-39.9, no comorbidity?? S/P laparoscopic cholecystectomy?? Severe obesity?? Urticaria?? Education Materials Below is the list of Educational Leaflet Providered with your Discharge Instructions. Surgery Medical Daystay Surgical Overnight Discharge Instructions?? Valuables and Belongings I fully understand and agree that [facility] accepts no responsibility for all my personal property including clothing, toilet articles, radios, jewelry, dentures, hearing aids, rings, money, or any other property that is in my possession or is brought to me after admission. I understand certain valuables may be placed in a hospital safe for a short period of time. I understand that the hospital is not liable for loss or damage due to accident, fire, or other natural occurrence while said property is in the safe. I accept full responsibility for any personal property that I keep with me, and will not hold the hospital responsible in case of loss or disappearance. I acknowledge that i have been encouraged to send valuables and belongings home. ?? Date for Pt to Sign Valuables/Belongings: 04/21/23 07:25:00 ?? Valuables & Belongings ?? Clothes Electronic devices Jewelry Monetary Items Personal devices Miscellaneous Medications (Valuables) Valuables at Bedside ?? Cell phone ? Valuables Sent Home ? Valuables Sent to Security ? Other Discharge Information ? Case Management Discharge Plan?? Discharge Plan?? Discharge Level of Care at Discharge: Home/[facility] ?? Pulmonary Rehab Status?? Pulmonary Rehab Discharge Status?? Respiratory Rate:??12 br/min??Low ? Common Emergency Awareness Tips IS IT A STROKE? Act FAST and Check for these signs: FACE Does the face look uneven? ARM Does one arm drift down? SPEECH Does their speech sound strange? TIME Call at any sign of stroke ?? Heart Attack Signs Chest discomfort: Most heart attacks involve discomfort in the center of the chest and lasts more than a few minutes, or goes away and comes back. It can feel like uncomfortable pressure, squeezing, fullness or pain. Discomfort in upper body: Symptoms can include pain or discomfort in one or both arms, back, neck, jaw or stomach. Shortness of breath: With or without discomfort. Other signs: Breaking out in a cold sweat, nausea, or lightheaded. Remember, MINUTES DO MATTER. If you experience any of these heart attack warning signs, call to get immediate medical attention! ?? Smoking can increase your chances of developing chronic health problems and can cause harmful effects to other family members in your house. If you smoke, you are strongly encouraged to quit. Please call [facility] [employer] Link at [phone] or [phone] ([phone]) or log in to [email or web address] for referrals to smoking cessation programs. ?? 139 Suicide & Crisis Lifeline is available 13/06 if you or someone you know needs to find a reason to keep living. By calling 876 you'll be connected to a skilled, trained counselor at a crisis center in your area. INPATIENT DISCHARGE INSTRUCTIONS SIGNATURE LEOBARDO JARVIS Location:[facility] Registration Date and Time:04/21/2023 07:09 EDT Primary Care Physician: Shady Morrissey NP, Attending Physician: Michael Sheth MD, LEOBARDO REYEZ, have received the above patient education materials/instructions and have verbalized understanding. If ambulance or transport services are being used I further acknowledge being given a choice of service. ?? If you need to contact me, please call me at this number: . Patient/Advanced Seal Delivery System Name: Patient/Advanced Seal Delivery System Signature: Relationship to Patient: Witness Name/Signature: Date: * Enedelia Mcguire RN: PERFORM, SIGN, VERIFY Event Display: Patient Education Handout Authored Date: * Enedelia Mcguire RN: PERFORM Event Display: Patient Education Leaflets Authored Date: Surgery Medical Daystay Surgical Overnight Discharge Instructions ?? 295 Medical Daystay/Surgical Overnight Discharge Instructions ? Since your coordination and judgment may be altered by medication and/or anesthesia, a responsible adult must drive you home from the hospital. ? If you have received medication for pain or sedation while under our care, you should not drive, operate machinery, drink alcohol, or sign any legal documents for 24 hours.?? You should have someone with you at home tonight. ? Remain at home the day of discharge.?? You may be up and about unless otherwise instructed by your physician. ? You may resume your daily prescription medication schedule.?? Any depressant medication should be avoided for 24 hours unless otherwise instructed by your surgeon or anesthesiologist. ? Call your physician for a follow-up appointment.? If you experience unusual or severe pain not relied by your pain medication, excessive bleedingor drainage, persistent nausea and vomiting, excessive swelling or redness, foul odor from incisionsite or fever over 100.6F, you need to call your physician. ? A follow-up phone call by a nurse will be made the day after your procedure.?? If you have stayed with us over night, you will not be receiving a follow-up phone call. ? Nausea and vomiting are a common side effect of prescription pain medication.?? We recommend that pills are not taken on an empty stomach.?? While taking any prescription pain medication you should not drive or drink alcohol. ? Patient Care team information Care Team Personnel Name: Shady Morrissey NP Position: [facility] Associate Professional Member Role: PCP Address: Address: [address] [place] [id number]- Name: Tiffanie Delaney RN Position: S RN Member Role: Primary Care Nurse Name: Lynn Blair LPN Position: [facility] OB RN Member Role: Primary Care Nurse Name: Cherie Vences RN Position: [facility] RN Supv Member Role: Primary Care Nurse Name: Farzana Cruz Position: [facility] OB RN Member Role: Primary Care Nurse Name: Vita Jacobo RN Position: S RN Member Role: Primary Care Nurse Name: Alex Diaz Position: [facility] RN Member Role: Primary Care Nurse Care Team Related Persons Name: MARVA SINGH Address: [id number] Address: [address] [place] [address] [place] Name: ASPEN RODRÍGUEZ Address: home [id number] [id number] Name: VITA BUNN Address: home [address] [address]
--- OUTSIDE RECORDS SUMMARY | 2024-01-08 18:44 | XMS_ITS | Continuity of Care Document ---
Author Name Unknown Organization [facility] ter Address [address] [place] [id number]- Care Team Providers Care Water Resource Engineer Name Role Phone Ghanshyam GUERRA, Shady Primary Care Physician [phone] Encounter [facility] Date(s): 08/10/23 - 11/25/[address] [id number] Attending Physician: Michael Sheth MD Admitting Physician: Michael Sheth MD Allergies, Adverse Reactions, [...] 10:36:00 EDT, Aerosol, Route to Pharmacy Electronically, [id number], [facility]/pharmacy #[id number], 163, cm, 02/22/22 10:24:00 EDT, Hei... Start Date: 02/22/22 Stop Date: 04/23/22 Status: Ordered ferrous sulfate 325 mg oral tablet 1 tablet = 325 mg, By Mouth, Daily, # 30 tablet, 11 Refills, Maintenance, 03/16/23 14:50:00 EDT, Tablet, [facility]/pharmacy #[id number], 163, cm, 03/14/23 9:21:00 EDT, Height Start Date: 03/16/23 Status: Ordered Humira Pen 40 mg/0.4 mL subcutaneous kit = 40 mg, Subcutaneous Injection, Every 14 days, # 2 each, 5 Refills, Maintenance, 08/08/23 8:38:00 EDT, [facility], Partial fill upon patient request if the prescription is for a schedule II opioid drug., 163, cm, 04/21/23 7:25:00 EDT... Start Date: 08/08/23 Status: Ordered Humira Pen Crohns/Ulcer Colitis/Hidradenitis Suppurativa Starterr Pack 80 mg/0.8 mL subcutaneous ki See Instructions, 160mg on day 1 then 80mg on day 15 then 40mg q14 days starting day 29, # 3 each, 0 Refills, Maintenance, 03/24/21 13:38:00 EDT, [facility], Partial fill upon patient request [...] 05/27/20 9:58:00 EDT, Route to Pharmacy Electronically, [facility]/pharmacy #[id number], 163, cm, 05/02/20 11:25:00 EDT, Height, 100, kg, 05/02/20 8:23:00 EDT, Dry Weight Start Date: 05/27/20 Stop Date: 07/26/20 Status: Ordered PEG-3350 with Electrolytes (Eqv-GoLYTELY) oral powder for reconstitution 240 mL, By Mouth, Every 10 minutes, # 4,000 mL, 0 Refills, Maintenance, 08/10/23 9:55:00 EDT, [facility]/pharmacy #[id number], OK to sub for any available gallon prep, 240 mL By Mouth Every 10 minutes, 163, cm, 04/21/23 7:25:00 EDT, Height, 106.4, kg, 06/07/23 7:2... Start Date: 08/10/23 Status: Ordered promethazine 25 mg oral tablet 1 tablet = 25 mg, By Mouth, Every 6 hours, PRN as needed for nausea/vomiting, # 30 tablet, 0 Refills, Maintenance, 06/07/23 9:37:00 EDT, Tablet, [facility] #[id number], Partial fill upon patient request if the prescription is for a schedule II opioid drug... Start Date: 06/07/23 Status: Ordered Vitamin D3 1000 intl units oral capsule 1 capsule = 25 mcg, By Mouth, Daily, # 75 capsule, 3 Refills, Maintenance, 03/16/23 14:53:00 EDT, Capsule, [id number], Partial fill upon patient request if the [...] Name: Shady Morrissey NP Position: [facility] Associate Professional Member Role: PCP Address: Address: [address] [place] [address] Name: Tiffanie Delaney RN Position: [facility] RN Member Role: Primary Care Nurse Name: Lynn Blair LPN Position: [facility] OB RN Member Role: Primary Care Nurse Name: Farzana Cruz Position: [facility] OB RN Member Role: Primary Care Nurse Name: Vita Jacobo RN Position: S RN Member Role: Primary Care Nurse Name: Alex Diaz Position: S RN Member Role: Primary Care Nurse Name: Melany Brenner RN Position: S RN Member Role: Primary Care Nurse Name: Helen Johnson RN Position: [facility] SN RN Member Role: Primary Care Nurse Care Team Related Persons Name: BETSY SINGHLion Address: [id number] Address: [address] [place] [address] Name: EDSON SINGH Address: [address] [place] [address] Name: ASPEN RODRÍGUEZ Address: home [place] [id number] Name: VITA BUNN Address: home [address] [address]
--- OUTSIDE RECORDS SUMMARY | 2024-01-08 18:44 | XMS_ITS | Continuity of Care Document ---
Author Name Unknown Organization [facility] ter Address [address] [place] [id number]- Care Team Providers Care Manager Supply Chain Planning Name Role Phone Shady Morrissey NP Primary Care Phys[place] [facility] [place]): [place] - 06/07/[address] [address]- Discharge Disposition: A-D/C Home Attending Physician: Елена Killian MD Admitting Physician: Елена Killian MD Referring Physician: Елена Killian MD Allergies, Adverse Reactions, Alerts No Known [...] 10:36:00 EDT, Aerosol, Route to Pharmacy Electronically, [id number], [facility]/pharmacy #[id number], 163, cm, 02/22/22 10:24:00 EDT, Hei... Start Date: 02/22/22 Stop Date: 04/23/22 Status: Ordered ferrous sulfate 325 mg oral tablet 1 tablet = 325 mg, By Mouth, Daily, # 30 tablet, 11 Refills, Maintenance, 03/16/23 14:50:00 EDT, Tablet, [facility]/pharmacy #[id number], 163, cm, 03/14/23 9:21:00 EDT, Height Start Date: 03/16/23 Status: Ordered Humira Pen 40 mg/0.4 mL subcutaneous kit = 40 mg, Subcutaneous Injection, Every 14 days, # 2 each, 3 Refills, Maintenance, 04/01/23 11:05:00EDT, [facility], Partial fill upon [...] each, 0 Refills, Maintenance, 03/24/21 13:38:00 EDT, [facility], Partial fill upon [...] [id number], 163, cm, 05/02/20 11:25:00 EDT, Height, 100, kg, 05/02/20 8:23:00 EDT, Dry Weight Start Date: 05/27/20 Stop Date: 07/26/20 Status: Ordered promethazine 25 mg oral tablet 1 tablet = 25 mg, By Mouth, Every 6 hours, PRN as needed for nausea/vomiting, # 30 tablet, 0 Refills, Maintenance, 06/07/23 9:37:00 EDT, Tablet, [facility]/pharmacy #[id number], Partial fill upon patient request if the prescription is for a schedule II opioid drug... Start Date: 06/07/23 Status: Ordered Unisom 25 mg oral tablet See Instructions, PRN Nausea, 1/2 TABLET AT NIGHT. WILL MAKE YOU DROWSINESS, # 14 tablet, 0 Refills, Acute 07/08/23 9:38:00 EDT, 06/07/23 9:38:00 EDT, Tablet, [facility]/pharmacy #[id number], Partial fill upon patient request if the prescription is for a schedule... Start Date: 06/07/23 Stop Date: 07/08/23 Status: Ordered Vitamin B6 50 mg oral tablet 50 mg, 1, tablet, By Mouth, 2 times a day, for 14 days, ONE PILL IN MORNING, ONE PILL AT NIGHTTIME,# 28 tablet, Refills 0, Tot. Refills 0, Acute 06/21/23 9:37:00 EDT, 06/07/23 9:37:00 EDT, Route to Pharmacy Electronically, [facility]/pharmacy #[id number], Partial... Start Date: 06/07/23 Stop Date: 06/21/23 Status: Ordered Vitamin D3 1000 intl units oral capsule 1 capsule = 25 mcg, By Mouth, Daily, # 75 capsule, 3 Refills, Maintenance, 03/16/23 14:53:00 EDT, Capsule, [facility]/pharmacy #[id number], Partial fill upon patient request if [...] IBD and 3Obstetrics and Gynecology 126:401 (07/05) Vital Signs Most recent to oldest [Reference Range]: 1 Weight 106.4 kg (06/07/23 7:27 AM) Oxygen Saturation [94-100 %] 100 % (06/07/23 7:27 AM) Pulse Rate [55-90 bpm] 86 bpm (06/07/23 7:27 AM) Blood Pressure [90-138/55-84 mm Hg] 131/ 90mm Hg (06/07/23 7:27 AM) Respiratory Rate [16-30 br/min] 18 br/mi n (06/07/23 7:27 AM) Temperature [96.8-100.4 DegF] 97.9 DegF (06/07/23 7:27 AM) Mode of Delivery (Oxygen) Room air (06/07/23 7:27 AM) Blood pressure sites Arm, right 1 (06/07/23 7:27 AM) Temperature Route Oral (06/07/23 7:27 AM) Dry Weight 106.4 kg (06/07/23 7:27 AM) Weight Obtained Via Standing scale (06/07/23 7:27 AM) Dry Weight Obtained Via Standing scale (06/07/23 7:27 AM) 1Result Comment: 42cm Social History Social History Type Response Smoking Status Never smoker entered on: 02/18/15 Sex Note * Mabel Slade V: PERFORM Event Display: Discharge/Transfer Note Hospital Authored Date: [id number] Nursing Discharge Note Entered On: 06/07/2023 9:40 EDT Performed On: 06/07/2023 9:40 EDT by Mabel lSade V Nursing Discharge Note 2 Discharge Time : 06/07/2023 9:40 EDT Discharge Level of Care at Discharge : Home/Usp/Foster Care Patient Left Unit Via : Ambulatory Patient Accompanied Off Unit with : Significant other DC Instructions Provided & Signed by Pt : Yes Patient Understands D/C Instructions : Yes Patient Instructions Discharge Signed : Yes Did Pt have Specialty Bed or Wound Vac : No Mabel Slade V - 06/07/2023 9:40 EDT * Mabel Slade V: PERFORM Event Display: Patient Education/Instruction Authored Date: [id number] Inpatient Adult Discharge Instructions [address] [id number] Name: LEOBARDO ARRIOLA : 1995 Visit: 06/07/2023 07:15:00 Current Date: 06/07/2023 09:24 Account: [id number] Inpatient Adult Discharge Instructions We would like [...] and their families. Surveys are administered by [employer] ?? If further treatment with your primary care physician or another doctor is recommended, it is important for you to keep the appointment. Call your primary care physician or return to the Emergency Department immediately if your condition worsens, fails to improve, or new symptoms develop. If you need to find a doctor, you can call [facility] [employer] for a referral at [phone] or toll free at [phone]) or log in to [email or web address].. ?? You can view and manage your care through the patient portal or by using a health care javier of your choosing. [employer] is a website that allows you to securely view your medical information including your hospital discharge summary, office visit summaries, medications and follow-up visits. You can also request appointments, renew medications, and request access to your medical information using a health care javier of your choosing, or just ask a question. You can enroll at [email or web address] or register during your next office visit. You have been discharged from [facility], Patient Care Unit: [id number]. If you have any questions regarding these instructions after you leave, please call us and we will be happy to assist you. [facility] Your Care Team Attending Physician Constantin PAULA, Елена Harp Tests Performed Below is a partial list of the tests performed during your hospitalization. You may have had other tests and procedures not included in this list. Please discuss all test results with your provider. Primary Care Provider Shady Morrissey NP Advance Directive Health Care Proxy on File No Discharge Vitals Temperature: 97.9 DegF Weight: 106.4 kg Pulse Rate: 86 bpm ?? Respiratory Rate: 18 br/min ?? Systolic Blood Pressure: 131 mm Hg ?? Diastolic Blood Pressure:??90 mm Hg??High ?? Oxygen Saturation: 100 % ?? Studies Pending All tests and labs ordered during this hospital stay have been completed unless listed below. Please discuss all pending results with your provider listed above in these instructions. ?? No incomplete studies found What to do next Instructions From Your Doctor Discharge Orders Scheduled Follow-Up Appointments Tuesday 3:00 PM EDT ?? With: Latrice GUERRA, Pallavi Where: [facility] [address] [address]- Status: Pending Discharge Medications LEOBARDO ARRIOLA :1995 Visit Date:06/07/2023 Medications: Please continue your medications until treatment [...] means No Known Allergies) NKA Problems Active Problems??(10) Asthma-Mild intermittent?? Contraception management?? Crohn's disease?? History of pre-eclampsia?? History of delivery?? Obesity, Class II, BMI 35-39.9, no comorbidity? S/P laparoscopic cholecystectomy?? Severe obesity?? Urticaria?? Education Materials Below is the list of Educational Leaflet Providered with your Discharge Instructions. Common Discomforts During ?? Morning Sickness: A Daily Struggle?? Severe Morning Sickness (Hyperemesis Gravidarum)?? Valuables and Belongings I fully understand and agree that [facility] accepts no responsibility for all my personal [...] encouraged to send valuables and belongings home. ? Other Discharge Information ? Pulmonary Rehab Status?? Pulmonary Rehab Discharge Status?? Respiratory Rate: 18 br/min ? Common Emergency Awareness Tips IS IT [...] are strongly encouraged to quit. Please call [facility] [employer] [facility] at [phone] or [phone] ([phone]) or log in to [email or web address] for referrals to smoking cessation programs. ?? 988 Suicide & Crisis Lifeline is available 24/7 if you or someone you know needs to find a reason to keep living. By calling 988 you'll be connected to a skilled, trained counselor at a crisis center in your area. INPATIENT DISCHARGE INSTRUCTIONS SIGNATURE LEOBARDO JARVIS Location:[facility] Registration Date and Time:06/07/2023 07:15 EDT Primary Care Physician: Shady Morrissey NP, Attending Physician: Елена Killian MD, I LEOBARDO ARRIOLA, have received the above patient education materials/instructions and have verbalized understanding. If ambulance or transport services are being used I further acknowledge being given a choice of service. ?? If you need to contact me, please call me at this number: . Patient/Mate Relief Name: Patient/Mate Relief Signature: Relationship to Patient: Witness Name/Signature: Date: * Mabel Slade V: PERFORM Event Display: Patient Education Leaflets Authored Date: [id number] Common Discomforts During ?? [id number] Common Discomforts During Symptoms of discomfort due to vary from person to person. Below are some common discomforts. But each mgldsu-sy-bb may have different symptoms or none at all: ??? Nausea and vomiting. Abouthalf of all people have nausea and sometimes vomiting in the first trimester. This is alsocalled morning sickness. That's because symptoms are most severe in the morning. Some people may have nausea and vomiting throughout the .??Morning sickness may be due to the changes in hormone levels during . Morning sickness seems to be??made worse??by stress, traveling, and certain foods, like spicy or fatty foods. Eating small meals several times a day may help lessen the symptoms. A diet high in protein and complex carbohydrates (like whole-wheat bread, pasta, bananas, and green, leafy vegetables) may also help reduce the severity of the nausea. If vomiting is severe, causing you to lose fluids and weight, it may??be a sign of??a condition called hyperemesis gravidarum. Hyperemesis can lead to dehydration and may need a hospital stay for intravenous fluids and nutrition. Call your healthcare provider or plan rep if you are having constant or severe nausea and vomiting. ??? Fatigue. As the body works overtime to provide a nourishing environment for the fetus, it is no wonder a person often feels tired. In the first trimester, their blood volume and other fluids increase as their body adjusts to the . Sometimes anemia is the underlying cause of the fatigue. Anemia is a drop in the ability of red blood cells to carry oxygen. It is often due to low iron levels. A simple blood test done at a visit will check for anemia. ??? Hemorrhoids. Hemorrhoids are common in late . That's because of the increased pressure on the rectum and perineum, the increased blood volume, and the increased likelihood of becoming constipated as the progresses. Preventing constipation and straining may help to prevent hemorrhoids. Always check with your healthcare provider or plan rep before using any medicine to treat this condition.??? Varicose veins. Varicose veins???swollen, purple veins???are common in the legs and around the vaginal opening during late . In most cases, varicose veins are caused by the increased pressure on the legs and the pelvic veins. It is also caused by the increased blood volume. ??? Heartburn and indigestion. Heartburn and indigestion is caused by pressure on the intestines and stomach (which, in turn, pushes stomach contents back up into the esophagus). It can be prevented or reduced by eating smaller meals throughout the day and by not lying down shortly after eating. ??? Bleeding gums. Gums may become more spongy as blood flow increases during . This causes them to bleedeasily. A person should continue to take care of her teeth and gums and go to the dentist for regular checkups. This symptom usually disappears after . ??? Pica. Pica is a rare craving to eat substances other than food, like dirt, miguel, or coal. The craving may be a sign of a nutritional deficiency. ??? Swelling or fluid retention. Mild swelling is common during . But se geneva swelling that??lasts may??be a sign of??preeclampsia (abnormal condition marked by high blood pressure). Lying on the left side, elevating the legs, and wearing support hose and comfortable shoes may help to relieve the swelling. Be sure to notify your??healthcare provider??or plan rep about sudden swelling, especially in the hands or face, or rapid weight gain. ??? Skin changes. Because of changes in hormone levels, including hormones that stimulate pigmentation of the skin, brown, blotchypatches may??happen on the face, forehead, or cheeks. This is often called the mask of , or chloasma. It often disappears soon after delivery. Using sunscreen when outside can reduce the amount of darkening that happens.?? Pigmentation may also increase in the skin surrounding the nipples,called the areola. A dark line??also often appears down the middle of the stomach. Freckles may darken, and moles may grow. ??? Stretch bobo. Pinkish stretch bobo may appear on the stomach, breasts, thighs, or buttocks. Stretch bobo are generally caused by a rapid increase in weight. The bobo us ually fade after . ??? Yeast infections. Due to hormone changes and increased vaginal discharge, also called leukorrhea, a person is more prone to yeast infections. Yeast infectionscause a thick, whitish discharge from the vagina and itching. Yeast infections are highly treatable. Always talk with your healthcare provider or plan rep before taking any medicine for this condition.? Congested or bloody nose. During , the lining of the respiratory tract receives more blood, often making it more congested. This congestion can also cause stuffiness in the nose or nosebleeds. Small blood vessels in the nose are also easily damaged due to the increased blood volume, causing nosebleeds. ??? Constipation. Increased pressure from the on the rectum and intestines can interfere with digestion and bowel movements. Hormone changes may also slow down the food being processed by the body. Increasing fluids, exercising regularly, and increasing the fiber in your diet are some of the ways to prevent constipation. Always check with your healthcare provider or plan rep before taking any medicine for this condition.? Backache. As a person's weight increases, their balance changes. Their center of gravity is pulled forward,??straining the back. Pelvic joints that begin to loosen in preparation for childbirth also contribute to this back strain. Correct posture and correct lifting methods throughout the can help reduce the strain on the back.??? Dizziness. Dizziness during is a common symptom. It may be caused by: o Low blood pressure due to the uterus compressing major arteries o Low blood sugar o Low iron o Quickly moving from a sitting position to a standing position o Dehydration To prevent injury from falling during episodes of dizziness, a person should stand up slowly and hold on to the enamorado and other stable structures for support and balance. ??? Headaches. Hormonal changes may be the cause of headaches during , especially during the first trimester. Rest, correct nutrition, and adequate fluidintake may help??ease headache symptoms. Always talk with your healthcare provider or plan rep??before taking any medicine for this condition. If you have a severe headache or a headache that does notgo away, call your healthcare provider. It may be a sign of preeclampsia.?? Last Reviewed Date: 2022 ?? 1423-5628 [employer]. All rights reserved. This information is not intended as a substitute for professional medical care. Always follow your healthcare professional's instructions. ?? * Yany, Mabel V: PERFORM Event Display: Patient Education Leaflets Authored Date: [id number] Morning Sickness: A Daily Struggle ?? Morning Sickness: A Daily Struggle - Video The challenges of parenthood can start before the baby is even born. Ingrid Betts discusses how she struggled to find food she could eat as she dealt with her morning sickness. To view the video go to this web address: [email or web address] Or, scan this QR code with your smart phone ?? [employer]. All rights reserved. This information is not intended as a substitute for professional medical care. Always follow your healthcare professional's instructions. ?? * Mabel Slade V: PERFORM Event Display: Patient Education Leaflets Authored Date: [id number] Severe Morning Sickness (Hyperemesis Gravidarum) ?? [address] Severe Morning Sickness (Hyperemesis Gravidarum) Upset stomach (nausea) and vomiting are common in . It is often called morning sickness. But it can happen at any time of day. Severe nausea and vomiting that doesn???t let up is not normal.This is known as?? hyperemesis gravidarum.??It can cause too much fluid loss (dehydration). And it can cause a lot of weight loss. This can be dangerous for the mother and baby. If you have it, your healthcare provider can treat you. This is done to keep you and your baby safe. They can also help you get some relief.?? Symptoms of severe morning sickness Call your healthcare provider if you have symptoms like these: ??? Unable to keep down liquids ??? Severe nausea beyond the first few months of ??? Unable to empty your bladder? Urine that is dark and in small amounts? Dizziness or fainting ?? What causes severe morning sickness? Morning sickness may be caused by an increase in some hormone levels. It is not clear why it's moresevere in some people. It may be more likely if you are carrying twins or more. You may need some tests. These are to check for other health conditions that can cause severe nausea and vomiting. ?? Getting relief from morning sickness To help reduce nausea: ? Eat small amounts of food often. An empty stomach can make nausea worse. ??? Choose dry foods such as crackers. ??? Try sipping cold, clear drinks. ??? Take gali, if your healthcare provider advises. ??? Your provider may advise that you try vitamin B-6 and a medicine called doxylamine. Thesecan help to ease the nausea. ??? Try acupuncture. In some cases, it can help manage nausea. ? Treating severe morning sickness The focus of treatment for??severe morning sickness??is to: ? Ease your symptoms ??? Prevent weight loss ??? Prevent too much fluid loss (dehydration) ?? If you are dehydrated or losing weight, you may need to be in the hospital for a short time. You will have IV (intravenous) fluids. This is to replace lost fluids. You may be given medicines that ease nausea. In very severe cases, you may need more time in the hospital. You may need IV nutrition ortube feeding. If you need these, your healthcare provider will tell you more. ?? Recovery and follow-up With treatment,??severe morning sickness??can be managed. Follow up with your healthcare provider. They want to make sure you are keeping down fluids. They need to check that you're gaining a healthyamount of weight. ?? When to get medical care Call your healthcare provider right away if you have any of these: ??? Signs of dehydration (see below) ??? Weight loss ??? Dizziness or fainting ??? Racing or pounding heart ??? Blood in your vomit Signs of dehydration include: ? Extreme thirst ??? Headache ??? Small amounts of urine ??? Very dark urine ??? A dry, sticky mouth ? Last Reviewed Date: 2021 ?? [employer]. All rights reserved. This information is not intended as a substitute for professional medical care. Always follow your healthcare professional's instructions. ?? Patient Care team information Care Team Personnel Name: Shady Morrissey NP Position: [facility] Associate Professional Member Role: PCP Address: Address: [address] [place] [address]- Name: Tiffanie Delaney RN Position: S RN Member Role: Primary Care Nurse Name: Lynn Blair LPN Position: [facility] OB RN Member Role: Primary Care Nurse Name: Cherie Vences RN Position: [facility] RN Supv Member Role: Primary Care Nurse Name: Farzana Cruz Position: [facility] OB RN Member Role: Primary Care Nurse Name: Vita Jacobo RN Position: S RN Member Role: Primary Care Nurse Name: Alex Diaz Position: S RN Member Role: Primary Care Nurse Name: Mabel Slade V Position: [facility] OB RN Member Role: Patient Care Provider Care Team Related Persons Name: MARVA SINGH Address: [address] Address: [address] [place] [address] Name: ASPEN RODRÍGUEZ Address: home [place] [id number] Name: VITA BUNN Address: home [address] [address]
--- OUTSIDE RECORDS SUMMARY | 2024-01-08 18:44 | XMS_ITS | Continuity of Care Document ---
Author Name Unknown Organization [facility] Address [address] [place] [address]- Care Team Providers Care Brake Engineer Name Role Phone Ghanshyam GUERRA, Shady Primary Care Physician Encounter [facility] Date(s): 06/24/23 - 08/11/[address] [address] Attending Physician: Not on Staff, Attending MD Allergies, Adverse Reactions, Alerts No Known [...] Comment: [01/24/2014] vaccine given by Esperanza Stephens 2Aradhames Note: VIS given-12/14/2011 Medications albuterol CFC free 90 mcg/inh inhalation aerosol 2, puffs, Inhalation, 4 times a day, PRN, # 1 each, Refills 1, Tot. Refills 1, Maintenance, 02/22/22 10:36:00 EDT, Aerosol, Route to Pharmacy Electronically, [id number], [facility]/pharmacy #[id number], 163, cm, 02/22/22 10:24:00 EDT, Hei... Start Date: 02/22/22 Stop Date: 04/23/22 Status: Ordered ferrous sulfate 325 mg oral tablet 1 tablet = 325 mg, By Mouth, Daily, # 30 tablet, 11 Refills, Maintenance, 03/16/23 14:50:00 EDT, Tablet, [facility]/pharmacy #[id number], 163, cm, 03/14/23 9:21:00 EDT, Height Start Date: 03/16/23 Status: Ordered Humira Pen 40 mg/0.4 mL subcutaneous kit = 40 mg, Subcutaneous Injection, Every 14 days, # 2 each, 5 Refills, Maintenance, 08/08/23 8:38:00 EDT, [facility], Partial fill upon patient [...] each, 0 Refills, Maintenance, 03/24/21 13:38:00 EDT, [facility], Partial fill upon patient [...] EDT, Route to Pharmacy Electronically, [facility]/pharmacy #[id number], 163, cm, 05/02/20 11:25:00 EDT, Height, 100, kg, 05/02/20 8:23:00 EDT, Dry Weight Start Date: 05/27/20 Stop Date: 07/26/20 Status: Ordered PEG-3350 with Electrolytes (Eqv-GoLYTELY) oral powder for reconstitution 240 mL, By Mouth, Every 10 minutes, # 4,000 mL, 0 Refills, Maintenance, 08/10/23 9:55:00 EDT, [facility]/pharmacy #[id number], OK to sub for any available [...] Team Personnel Name: Shady Morrissey NP Position: [facility] Associate Professional Member Role: PCP Address: Address: [address] [place] [address] Name: Tiffanie Delaney RN Position: S RN Member Role: Primary Care Nurse Name: Lynn Blair LPN Position: [facility] OB RN Member Role: Primary Care Nurse Name: Farzana Cruz Position: [facility] OB RN Member Role: Primary Care Nurse Name: Vita Jacobo RN Position: S RN Member Role: Primary Care Nurse Name: Alex Diaz Position: S RN Member Role: Primary Care Nurse Name: Helen Johnson RN Position: [facility] SN RN Member Role: Primary Care Nurse Care Team Related Persons Name: BETSY SINGHLion Address: [address] Address: home [address] [place] [address] Name: EDSON SINGH Address: [address] [place] [address] Name: ASPEN RODRÍGUEZ Address: home [place] [address] Name: VITA BUNN Address: home [address] [address]
--- OUTSIDE RECORDS SUMMARY | 2024-01-08 18:44 | XMS_ITS | Continuity of Care Document ---
Author Name Unknown Organization [facility] ter Address [address] [place] [address]- Care Team Providers Care Automatic Trimming Sewer Name Role Phone Shady Morrissey NP Primary Care Physician Encounter [facility] [place] Date(s): 04/05/23 - 05/11/[address] [address] Attending Physician: Donna Pollard NP Admitting Physician: Latrice GUERRA, Donna Horne Referring Physician: Donna Pollard NP Allergies, Adverse Reactions, Alerts No Known [...] 10:36:00 EDT, Aerosol, Route to Pharmacy Electronically, [id number], [facility]/pharmacy #[id number], 163, cm, 02/22/22 10:24:00 EDT, Hei... Start Date: 02/22/22 Stop Date: 04/23/22 Status: Ordered ferrous sulfate 325 mg oral tablet 1 tablet = 325 mg, By Mouth, Daily, # 30 tablet, 11 Refills, Maintenance, 03/16/23 14:50:00 EDT, Tablet, [facility]/pharmacy #[id number], 163, cm, 03/14/23 9:21:00 EDT, Height Start Date: 03/16/23 Status: Ordered Humira Pen 40 mg/0.4 mL subcutaneous kit = 40 mg, Subcutaneous Injection, Every 14 days, # 2 each, 3 Refills, Maintenance, 04/01/23 11:05:00EDT, [facility], Partial fill upon [...] each, 0 Refills, Maintenance, 03/24/21 13:38:00 EDT, [facility], Partial fill upon [...] 05/27/20 9:58:00 EDT, Route to Pharmacy Electronically, [facility]/pharmacy #[id number], 163, cm, 05/02/20 11:25:00 EDT, Height, 100, kg, 05/02/20 8:23:00 EDT, Dry Weight Start Date: 05/27/20 Stop Date: 07/26/20 Status: Ordered Vitamin D3 1000 intl units oral capsule 1 capsule = 25 mcg, By Mouth, Daily, # 75 capsule, 3 Refills, Maintenance, 03/16/23 14:53:00 EDT, Capsule, [facility]/pharmacy #[id number], Partial fill upon patient request if the [...] Team Personnel Name: Shady Morrissey NP Position: [facility] Associate Professional Member Role: PCP Address: Address: [address] [place] [id number] Name: Tiffanie Delaney RN Position: S RN Member Role: Primary Care Nurse Name: Lynn Blair LPN Position: [facility] OB RN Member Role: Primary Care Nurse Name: Cherie Vences RN Position: [facility] RN Supv Member Role: Primary Care Nurse Name: Farzana Cruz Position: [facility] OB RN Member Role: Primary Care Nurse Name: Vita Jacobo RN Position: S RN Member Role: Primary Care Nurse Name: Alex Diaz Position: S RN Member Role: Primary Care Nurse Care Team Related Persons Name: MARVA SINGH Address: [id number] Address: [address] [place] [address] [place] Name: ANNE ASPEN Address: home [place] [id number] Name: VITA BUNN Address: home [address] [address]
--- OUTSIDE RECORDS SUMMARY | 2024-01-08 18:45 | XMS_ITS | Continuity of Care Document ---
Author Name Unknown Organization [facility] Address [address] [place] [address]- Care Team Providers Care Chairman And Chief Executive Officer Name Role Phone Ghanshyam GUERRA, Shady Primary Care Physician [phone] Encounter [facility] Date(s): 03/02/23 - 04/01/[address] [address]- Attending Physician: Sebastián Zavala Admitting Physician: AdmtrSebastián [...] 10:36:00 EDT, Aerosol, Route to Pharmacy Electronically, [id number], [facility]/pharmacy #[id number], 163, cm, 02/22/22 10:24:00 EDT, Hei... Start Date: 02/22/22 Stop Date: 04/23/22 Status: Ordered ferrous sulfate 325 mg oral tablet 1 tablet = 325 mg, By Mouth, Daily, # 30 tablet, 11 Refills, Maintenance, 03/16/23 14:50:00 EDT, Tablet, [facility]/pharmacy #[id number], 163, cm, 03/14/23 9:21:00 EDT, Height Start Date: 03/16/23 Status: Ordered Humira Pen 40 mg/0.4 mL subcutaneous kit = 40 mg, Subcutaneous Injection, Every 14 days, # 2 each, 3 Refills, Maintenance, 04/01/23 11:05:00EDT, [facility], Partial fill upon patient request if the prescription is for a schedule II opioid drug., 163, yany, 03/14/23 9:21:00 ED... Start Date: 04/01/23 Status: Ordered Humira Pen Crohns/Ulcer Colitis/Hidradenitis Suppurativa Starterr Pack 80 mg/0.8 mL subcutaneous ki See Instructions, 160mg on day 1 then 80mg on day 15 then 40mg q14 days starting day 29, # 3 each, 0 Refills, Maintenance, 03/24/21 13:38:00 EDT, [facility], Partial fill upon patient [...] Electronically, [facility]/pharmacy #[id number], [address], 05/02/20 11:25:00 EDT, Height, 100, kg, 05/02/20 8:23:00 EDT, Dry Weight Start Date: 05/27/20 Stop Date: 07/26/20 Status: Ordered omeprazole 20 mg oral enteric coated capsule 1 capsule = 20 mg, By Mouth, Daily, # 30 capsule, 0 Refills, Maintenance, 09/16/22 17:40:00 EDT, ECCapsule, [facility]/pharmacy #[id number], Partial fill upon patient request if the prescription is for a schedule II opioid drug., 163, yany, 09/16/22 17:38:00 EDT, H... Start Date: 09/16/22 Stop Date: 10/16/22 Status: Ordered Vitamin D3 1000 intl units [...] Team Personnel Name: Shady Morrissey NP Position: [facility] Associate Professional Member Role: PCP Address: Address: [address] [place] [address]- Name: Tiffanie Delaney RN Position: S RN Member Role: Primary Care Nurse Name: Lynn Blair LPN Position: [facility] OB RN Member Role: Primary Care Nurse Name: Cherie Vences RN Position: [facility] RN Supv Member Role: Primary Care Nurse Name: Farzana Cruz Position: [facility] OB RN Member Role: Primary Care Nurse Name: Vita Jacobo RN Position: S RN Member Role: Primary Care Nurse Name: Alex Diaz Position: S RN Member Role: Primary Care Nurse Name: Melany Brenner RN Position: S RN Member Role: Primary Care Nurse Care Team Related Persons Name: MARVA SINGH Address: [id number] Address: [address] [place] [address] [place] Name: ASPEN RODRÍGUEZ Address: home [place] [id number] Name: VITA BUNN Address: [address] [address]
--- OUTSIDE RECORDS SUMMARY | 2024-01-08 18:45 | XMS_ITS | Continuity of Care Document ---
Author Name Unknown Organization [facility] Address [address] [place] [address]- Care Team Providers Care Welder/Fitter Name Role Phone Ghanshyam GUERRA, Shady Primary Care Physician Encounter [facility] Date(s): 07/12/23 - 08/11/[address] [address]- Attending Physician: Sebastián Zavala Admitting Physician: AdmtrSebastián [...] 10:36:00 EDT, Aerosol, Route to Pharmacy Electronically, [id number], [facility]/pharmacy #[id number], 163, cm, 02/22/22 10:24:00 EDT, Hei... Start Date: 02/22/22 Stop Date: 04/23/22 Status: Ordered ferrous sulfate 325 mg oral tablet 1 tablet = 325 mg, By Mouth, Daily, # 30 tablet, 11 Refills, Maintenance, 03/16/23 14:50:00 EDT, Tablet, [facility]/pharmacy #[id number], 163, cm, 03/14/23 9:21:00 EDT, Height Start Date: 03/16/23 Status: Ordered Humira Pen 40 mg/0.4 mL subcutaneous kit = 40 mg, Subcutaneous Injection, Every 14 days, # 2 each, 5 Refills, Maintenance, 08/08/23 8:38:00 EDT, [facility], Partial fill upon patient request [...] each, 0 Refills, Maintenance, 03/24/21 13:38:00 EDT, [facility], Partial fill upon patient request [...] 05/27/20 9:58:00 EDT, Route to Pharmacy Electronically, [facility]/pharmacy #[id number], 163, cm, 05/02/20 11:25:00 EDT, Height, 100, kg, 05/02/20 8:23:00 EDT, Dry Weight Start Date: 05/27/20 Stop Date: 07/26/20 Status: Ordered PEG-3350 with Electrolytes (Eqv-GoLYTELY) oral powder for reconstitution 240 mL, By Mouth, Every 10 minutes, # 4,000 mL, 0 Refills, Maintenance, 08/10/23 9:55:00 EDT, [facility]/pharmacy #[id number], OK to sub for any available gallon prep, 240 mL By Mouth Every 10 minutes, 163, cm, 04/21/23 7:25:00 EDT, Height, 106.4, kg, 06/07/23 7:2... Start Date: 08/10/23 Status: Ordered promethazine 25 mg oral tablet 1 tablet = 25 mg, By Mouth, Every 6 hours, PRN as needed for nausea/vomiting, # 30 tablet, 0 Refills, Maintenance, 06/07/23 9:37:00 EDT, Tablet, [facility]/pharmacy #[id number], Partial fill upon patient request if [...] Name: Shady Morrissey NP Position: [facility] Associate Professional Member Role: PCP Address: Address: [address] [place] [address] Name: Tiffanie Delaney RN Position: [facility] RN Member Role: Primary Care Nurse Name: Lynn Blair LPN Position: [facility] OB RN Member Role: Primary Care Nurse Name: Farzana Cruz Position: [facility] OB RN Member Role: Primary Care Nurse Name: Vita Jacobo RN Position: S RN Member Role: Primary Care Nurse Name: Alex Diaz Position: S RN Member Role: Primary Care Nurse Name: Helen Johnson RN Position: [facility] SN RN Member Role: Primary Care Nurse Care Team Related Persons Name: MARVA SINGH Address: [address] Address: [address] [place] [address] Name: EDSON SINGH Address: [address] [place] [address] Name: ASPEN RODRÍGUEZ Address: home [place] [id number] Name: VITA BUNN Address: home [address] [address]
--- OUTSIDE RECORDS SUMMARY | 2024-01-08 18:45 | XMS_ITS | Continuity of Care Document ---
Author Name Unknown Organization [facility] ter Address [address] [place] [address]- Care Team Providers Care Center Consultant Name Role Phone Shady Morrissye NP Primary Care Physician Encounter [facility] Date(s): 10/26/23 - 12/01/[address] [address] Attending Physician: Donna Pollard NP Admitting Physician: [...] 10:36:00 EDT, Aerosol, Route to Pharmacy Electronically, [id number], [facility]/pharmacy #[id number], 163, cm, 02/22/22 10:24:00 EDT, Hei... Start Date: 02/22/22 Stop Date: 04/23/22 Status: Ordered ferrous sulfate 325 mg oral tablet 1 tablet = 325 mg, By Mouth, Daily, # 30 tablet, 11 Refills, Maintenance, 03/16/23 14:50:00 EDT, Tablet, [facility]/pharmacy #[id number], 163, cm, 03/14/23 9:21:00 EDT, Height Start Date: 03/16/23 Status: Ordered Humira Pen 40 mg/0.4 mL subcutaneous kit = 40 mg, Subcutaneous Injection, Every 14 days, # 2 each, 5 Refills, Maintenance, 08/08/23 8:38:00 EDT, [facility], Partial fill upon patient [...] each, 0 Refills, Maintenance, 03/24/21 13:38:00 EDT, [facility], Partial fill upon patient [...] 05/27/20 9:58:00 EDT, Route to Pharmacy Electronically, [facility]/pharmacy #[id number], 163, cm, 05/02/20 11:25:00 EDT, Height, 100, kg, 05/02/20 8:23:00 EDT, Dry Weight Start Date: 05/27/20 Stop Date: 07/26/20 Status: Ordered PEG-3350 with Electrolytes (Eqv-GoLYTELY) oral powder for reconstitution 240 mL, By Mouth, Every 10 minutes, # 4,000 mL, 0 Refills, Maintenance, 08/10/23 9:55:00 EDT, [facility]/pharmacy #[id number], OK to sub for [...] Team Personnel Name: Shady Morrissey NP Position: [facility] Associate Professional Member Role: PCP Address: Address: [address] [place] [address] Name: Tiffanie Delaney RN Position: [facility] RN Member Role: Primary Care Nurse Name: Lynn Blair LPN Position: [facility] OB RN Member Role: Primary Care Nurse Name: Farzana Cruz Position: [facility] OB RN Member Role: Primary Care Nurse Name: Vita Jacobo RN Position: S RN Member Role: Primary Care Nurse Name: Alex Diaz Position: S RN Member Role: Primary Care Nurse Name: Melany Brenner RN Position: S RN Member Role: Primary Care Nurse Name: Helen Johnson RN Position: [facility] SN RN Member Role: Primary Care Nurse Care Team Related Persons Name: MARVA SINGH Address: [address] Address: [address] [place] [address] Name: EDSON SINGH Address: [address] [place] [address] Name: ASPEN RODRÍGUEZ Address: home [place] [address] Name: VITA BUNN Address: home [address] [place] [address]
--- OUTSIDE RECORDS SUMMARY | 2024-01-08 18:45 | XMS_ITS | Continuity of Care Document ---
Author Name Unknown Organization [facility] Address [address] [place] [address]- Care Team Providers Care Compo Conveyor Operator Name Role Phone Ghanshyam GUERRA, Shady Primary Care Physician [phone] Encounter [facility] Date(s): 03/14/23 - 04/13/23 [facility] [address] [place] [address]- Attending Physician: Sebastián Zavala Admitting Physician: Sebastián [...] Recorded 1Result Comment: [01/24/2014] vaccine given by Epseranza Stephens 2Admin Note: VIS given-12/14/2011 Medications albuterol CFC free 90 mcg/inh inhalation aerosol 2, puffs, Inhalation, 4 times a day, PRN, # 1 each, Refills 1, Tot. Refills 1, Maintenance, 02/22/22 10:36:00 EDT, Aerosol, Route to Pharmacy Electronically, [id number], [facility]/pharmacy #[id number], 163, cm, 02/22/22 10:24:00 EDT, Hei... Start Date: 02/22/22 Stop Date: 04/23/22 Status: Ordered ferrous sulfate 325 mg oral tablet 1 tablet = 325 mg, By Mouth, Daily, # 30 tablet, 11 Refills, Maintenance, 03/16/23 14:50:00 EDT, Tablet, [facility]/pharmacy #[id number], 163, cm, 03/14/23 9:21:00 EDT, Height Start Date: 03/16/23 Status: Ordered Humira Pen 40 mg/0.4 mL subcutaneous kit = 40 mg, Subcutaneous Injection, Every 14 days, # 2 each, 3 Refills, Maintenance, 04/01/23 11:05:00EDT, [facility], Partial fill upon patient [...] each, 0 Refills, Maintenance, 03/24/21 13:38:00 EDT, [facility], Partial fill upon patient [...] 9:58:00 EDT, Route to Pharmacy Electronically, [facility]/pharmacy #[id number], 163, cm, 05/02/20 11:25:00 EDT, Height, 100, kg, 05/02/20 8:23:00 EDT, Dry Weight Start Date: 05/27/20 Stop Date: 07/26/20 Status: Ordered omeprazole 20 mg oral enteric coated capsule 1 capsule = 20 mg, By Mouth, Daily, # 30 capsule, 0 Refills, Maintenance, 09/16/22 17:40:00 EDT, ECCapsule, [facility]/pharmacy #[id number], Partial fill upon patient request if the prescription is for a schedule II opioid drug., 163, cm, 09/16/22 17:38:00 EDT, H... Start Date: 09/16/22 Stop Date: 10/16/22 Status: Ordered Vitamin D3 1000 intl units oral capsule 1 capsule = 25 mcg, By Mouth, Daily, # 75 capsule, 3 Refills, Maintenance, 03/16/23 14:53:00 EDT, Capsule, [facility]/pharmacy #[id number], Partial fill upon patient request [...] 2 Oxygen Saturation [94-100 %] 100 % (07/21/17 11:07 AM) 100 % (07/21/17 8:06 AM) Pulse Rate [55-90 bpm] 91 bpm *H* (07/21/17 11:07 AM) 94 bpm *H* (07/21/17 8:06 AM) Blood Pressure [90-138/55-84 mm Hg] 117/ 70mm Hg (07/21/17 11:07 AM) 124/83mm Hg (07/21/17 8:06 AM) Respiratory Rate [16-30 br/min] 20 br/mi n (07/21/17 11:07 AM) 20 br/min (07/21/17 8:06 AM) Temperature [96.8-100.4 DegF] 97.9 DegF (07/21/17 11:07 AM) 98.2 DegF (07/21/17 8:06 AM) Mode of Delivery (Oxygen) Room air (07/21/17 11:07 AM) Room air (07/21/17 8:06 AM) Blood pressure sites Arm, right (07/21/17 11:07 AM) Arm, right (07/21/17 8:06 AM) Temperature Route Oral (07/21/17 11:07 AM) Oral (07/21/17 8:06 AM) Social History Social History Type Response Smoking Status Never smoker entered on: 02/18/15 Sex Laboratory * Event Display: Non BH Lab Results Authored Date: Patient Care team information Care Team Personnel Name: Shady Morrissey NP Position: [facility] Associate Professional Member Role: PCP Address: Address: [address] [place] [address]- [place] Name: Tiffanie Delaney RN Position: S RN Member Role: Primary Care Nurse Name: Lnyn Blair LPN Position: [facility] OB RN Member Role: Primary Care Nurse Name: Cherie Vences RN Position: [facility] RN Supv Member Role: Primary Care Nurse Name: Farzana Cruz Position: [facility] OB RN Member Role: Primary Care Nurse Name: Vita Jacobo RN Position: [facility] RN Member Role: Primary Care Nurse Name: Alex Diaz Position: S RN Member Role: Primary Care Nurse Name: Melany Brenner RN Position: [facility] RN Member Role: Primary Care Nurse Care Team Related Persons Name: MARVA SINGH Address: [id number] Address: home [address] [place] [address] [place] Name: ASPEN RODRÍGUEZ Address: home [place] [address] Name: VITA BUNN Address: [address] [address]
[2024-01-08 18:54] VITALS: TEMP 38.3
[2024-01-08 19:11] LABS: Influenza A PCR POSITIVE (Negative); Influenza B PCR NEGATIVE (Negative); Resp Syncy Virus RNA Qual PCR NEGATIVE (Negative); SARS COV2 PCR INHOUSE NEGATIVE (Negative)
[2024-01-08] MEDS: Acetaminophen 325 MG TABLET 975 MG PO (19:23)
[2024-01-08] MEDS: Amoxicillin/Potassium Clav 875 MG TABLET PO (19:55)
[2024-01-08] MEDS: Ondansetron ODT 4 MG TAB.RAPDIS TRANSLINGU (19:55)
== END 2024-01-08 20:03 | disposition home or self-care (01) ==
PROVIDERS: Physician Assistant Medical; Emergency Provider Student in an Organized Health Care Education/Training Program
DX: J10.1 Influenza due to other identified influenza virus with other respiratory manifestations (principal); H66.91 Otitis media, unspecified, right ear; Z20.822 Contact with and (suspected) exposure to COVID-19; Z20.828 Contact with and (suspected) exposure to other viral communicable diseases
CPT/HCPCS: 0241U; 99283; 99284

== ENCOUNTER → 2024-03-06 07:59 | Outpatient (BNVA) | payer OTHER, SELFPAY | PROVIDERS: Visit Provider Surgery ==

== ENCOUNTER 2024-03-27 04:31 | Emergency (ER) | payer OTHER, SELFPAY ==
--- NOTE | ~2024-03-27 | XR_ITS ---
EXAMINATION: XR CHEST CLINICAL INFORMATION: Dyspnea COMPARISON: 10/12/2022 TECHNIQUE: Frontal view of the chest was obtained. FINDINGS: Lungs are hypoinflated and lower lobes poorly evaluated. It is not possible to exclude any groundglass infiltrates at the bases due to the degree of hypoinflation. No pleural effusion or pneumothorax. Cardiomediastinal silhouette has normal size and contour. There is no cephalization of pulmonary venous flow or edematous change. Skeletal structures are unremarkable. Cholecystectomy clips are present in the right upper quadrant of the abdomen. XR/XR chest 1V IMPRESSION: * The lungs are markedly hypoinflated and lower lobes are poorly evaluated. If dyspnea continues, recommend obtaining PA and lateral chest radiographs during maximal inspiratory effort * No evidence of pulmonary edema, pleural effusion or pneumothorax.
[2024-03-27 04:35] VITALS: BP 124/86; PULSE 108; O2SAT 99
[2024-03-27 04:37] VITALS: BP 118/81; PULSE 115; RESP 21; TEMP 37; O2SAT 96; BMI 37.8
--- NOTE | 2024-03-27 04:51 | ECG_ITS ---
Test Reason : SOB Blood Pressure : / mmHG Vent. Rate : 113 BPM Atrial Rate : 113 BPM P-R Int : 154 ms QRS Dur : 082 ms QT Int : 330 ms P-R-T Axes : 063 007 036 degrees QTc Int : 452 ms Sinus tachycardia Possible Left atrial enlargement Inferior infarct , age undetermined Cannot rule out Anterior infarct , age undetermined Abnormal ECG No previous ECGs available Referred By: Debi Heredia Electronically Signed By:Garfield Cee
--- NOTE | 2024-03-27 04:52 | ED_ITS ---
HPI - SOB/Dyspnea General Chief Complaint: Dyspnea Stated Complaint: SOB Time Seen by Provider: 03/27/24 04:37 Source: patient and old records reviewed Mode of arrival: EMS Limitations: no limitations History of Present Illness HPI Narrative: 28 yo female with PMH of asthma has INH and nebulizer just completed therapy for strep pharyngitis presents with dyspnea and chest tightness for 2 days. No fevers, no sputum production. Has IUD in place - no recent travel. Was given duoneb with EMS prior to arrival does feel a little better MD elicited complaint: shortness of breath Pertinent past history: asthma Onset (ago): day(s) (2) Context: recent illness Timing: constant Severity: moderate Exacerbating factors: exertion and coughing Relieving factors: bronchodilators Known history of: asthma Associated symptoms: chest pain, cough and wheezing Treatment prior to arrival: bronchodilator Related Data Home Medications ?Medication ?Instructions ?Recorded ?Confirmed adalimumab 40 mg/0.4 mL 40 mg subcut Q2W 02/22/23 03/16/23 subcutaneous pen kit (Humira(CF) Pen) Previous Rx's ?Medication ?Instructions ?Recorded cefuroxime axetil 500 mg tablet 500 mg PO BID 7 days #14 tabs 03/27/24 doxycycline hyclate 100 mg capsule 100 mg PO BID 7 days #14 caps 03/27/24 prednisone 20 mg tablet 40 mg (2 x 20 mg) PO DAILY 5 days 03/27/24 #10 tabs Allergies Allergy/AdvReac Type Severity Reaction Status Date / Time No Known Allergies Allergy Verified 03/27/24 04:38 [No Known Allergies*] Review of Systems 2 Review of Systems: Constitutional : No Fever, No Chills ENT/Mouth : No Hoarseness, No sore throat, No Rhinorrhea Eyes: No Redness, No Discharge, No Vision Changes Cardiovascular : pos Chest Pain, positive SOB, positive Dyspnea on Exertion, No Edema Respiratory : positive Cough, No Sputum, positive Wheezing, Gastrointestinal : No Nausea, No Vomiting, No Diarrhea, No abdominal Pain Genitourinary : No Dysuria, No Hematuria Musculoskeletal : No joint pain, No Myalgias Skin : No rash Neuro : No Weakness, No Numbness, No Headache Psych : No anxiety, depression Heme/Lymph: No Bruising, No Bleeding Endocrine : No Polyuria, No Polydipsia All other systems reviewed and are negative [facility] Past Medical History Attestation statement: The following information was validated with the patient. Source: old records reviewed Medical History KYLE (obstructive sleep apnea) Asthma Crohn's disease Biliary colic Gallstones Surgical History Hx laparoscopic cholecystectomy (03/16/23) H/O colonoscopy Family History Family History Daughter Liver cancer Social History Social History Alcohol intake: never Patient Tobacco Use Status: Never used Tobacco Smoked in Last 30 Days: No Use of substances other than those prescribed or required for medical reasons: No Advance Directives: No Advance Directives Information Provided: No Physical Exam 2 Vital Signs: Vital Signs: Last Vital Signs Temp 98.3 F 03/27/24 07:20 Pulse 109 H 03/27/24 07:20 Resp 25 H 03/27/24 07:20 BP 124/69 03/27/24 07:20 Pulse Ox 100 03/27/24 07:20 O2 Del Method Room Air 03/27/24 07:20 BMI result Body Mass Index 37.8 Appearance: Alert. Oriented X3. Anxious No acute distress. Eyes: Pupils equal, round and reactive to light. ENT: Pharynx normal. Neck: Normal inspection. Neck supple. CVS: tachycardic heart rate and rhythm. Pulses normal. Respiratory: No respiratory distress. Breath sounds diminished dry persistent cough Abdomen: Soft and non-tender. Skin: Skin warm and dry. Normal skin color. Normal skin turgor. Extremities: No lower extremity edema. Neuro: Oriented X 3. No motor deficit. No sensory deficit. Course Course Course Narrative: patinet is feeling better wheezing improved 100% on RA Reevaluation(s) Reevaluation #1: I assumed care of this patient from my colleague, Dr. Heredia at 07:00 hours. Radiology reading of the x-ray stated that the lower lobes reportedly evaluated however on my interpretation of the x-ray I agree with Dr. Heredia that there may be a right lower lobe infiltrate therefore the patient will be treated for community-acquired pneumonia with cefuroxime 500 mg q.12 hours x7 days, doxycycline 500 mg q.12h x7 days and prednisone 40 mg once a day for 5 days. I did re-evaluate the patient. On her lung exam she has no wheezing but does have rales at the bases right greater than left. Patient was given printed and verbal instructions and discharged home. Time: 07:57 Medications Administered Discontinued Medications Generic Name Dose Route Start Last Admin Trade Name Jacobo PRN Reason Stop Dose Admin Albuterol Sulfate 5 mg/ 7.5 mg 03/27/24 05:06 03/27/24 05:11 Albuterol Sulfate 2.5 mg INHALE 03/27/24 05:07 7.5 mg ONCE ONE Administration Guaifenesin/Codeine Phosphate 5 ml 03/27/24 05:06 03/27/24 05:09 Guaifen/Codeine Sf 200/20/10ml 10 Ml Liquid PO 03/27/24 05:07 5 ml ONCE ONE Administration Magnesium Sulfate 2 gm in 50 mls @ 150 mls/hr 03/27/24 04:51 03/27/24 05:23 Magnesium Sulfate/H2o IV 03/27/24 05:10 Infused ONCE ONE Infusion Methylprednisolone Sodium Succinate 125 mg 03/27/24 04:51 03/27/24 05:03 Methylprednisolone Sod Succ 125 Mg/2 Ml Vial IVPUSH 03/27/24 04:52 125 mg ONCE ONE Administration Potassium Chloride 40 meq 03/27/24 05:30 03/27/24 06:43 Potassium Chloride Packet 20 Meq Packet PO 03/27/24 05:31 40 meq ONCE ONE Administration Medical Decision Making Medical Decision Making MDM Narrative: 28 yo female with PMH of asthma has INH and nebulizer just completed therapy for strep pharyngitis here with c/o dyspnea and chest tightness no fevers reported at this time will obtain EKG, CXR, troponin x 1, ddimer, viral panel - start on bronchodilator therapy and IV steroids and magnesium. She is not wheezing for the degree she is reporting her dyspnea which is unusual she does appear anxious. Will need other pathology rule out such as myocarditis, VTE. Differential Diagnosis Differential Diagnoses: The differential diagnosis associated with the presentation includes asthma, viral syndrome, VTE, anxiety Admission/Observation Consideration of admission/observation: Escalation of care including admission/observation considered Lab Data [facility] Lab Attestation statement: I reviewed the patient's lab results. 03/27/24 04:56 05/07/24 04:56 Labs: Lab Results 03/27/24 03/27/24 Range/Units 04:56 05:17 WBC 10.9 H (4.8-10.8) X10*3/uL RBC 5.03 (4.20-5.50) X10*6/uL Hgb 11.8 L (12.0-16.0) g/dl Hct 37.3 (37.0-47.0) % MCV 74.2 L (80.0-98.0) fL MCH 23.5 L (27.0-33.0) pg MCHC 31.6 (31.0-35.0) g/dl RDW 15.6 (11.0-16.0) % Plt Count 378 (160-400) X10*3/uL MPV 9.6 (9.4-12.3) fL Immature Gran % (Auto) 0.3 (0.0-0.4) % Neut % (Auto) 59.4 (45-73) % Lymph % (Auto) 26.8 (20-40) % [place] % (Auto) 12.1 H (2-11) % Eos % (Auto) 1.2 (0-4) % Baso % (Auto) 0.2 (0-2) % Lymph # (Auto) 2.9 (1.2-4.9) X10*3/uL [place] # (Auto) 1.3 H (0.1-1.2) X10*3/uL Eos # (Auto) 0.1 (0.0-0.4) X10*3/uL Baso # (Auto) 0.0 (0.0-0.2) X10*3/uL Abs Immat Gran (auto) 0.03 (0.00-0.03) X10*3/uL Absolute Neuts (auto) 6.5 (2.0-8.3) x10*3/uL Absolute Nucleated RBC 0.000 (0.0-0.012) X10*3/uL Nucleated RBC % (auto) 0.0 (0.0-0.2) /100WBC D-Dimer High Sensitivty < 150 NG/ML Sodium 139 (135-145) mmol/L Potassium 3.2 L (3.3-5.1) mmol/L Chloride 107 (96-108) mmol/L Carbon Dioxide 20 L (22-29) mmol/L Anion Gap 15 (12-20) BUN 7 L (9-16) mg/dL Creatinine 0.79 (0.5-1.4) mg/dL Estim Creat Clear Calc 121.7 Estimated GFR > 60 Random Glucose 100 (60-115) mg/dL Calcium 8.8 (8.4-10.2) mg/dL Magnesium 1.6 (1.6-2.6) mg/dL Total Bilirubin 0.3 (0.0-1.0) mg/dL Direct Bilirubin 0.1 (0.0-0.5) mg/dL AST 18 (5-31) U/L ALT 16 (0-31) U/L Alkaline Phosphatase 64 (39-117) U/L Troponin I High Sens < 2.7 (<3.5-17.0) ng/L Total Protein 7.7 (6.5-8.0) g/dL Albumin 3.9 (3.5-5.0) g/dL Beta HCG, Quant < 2 mIU/mL Influenza Type A (PCR) NEGATIVE (Negative) Influenza Type B (PCR) NEGATIVE (Negative) RSV RNA Qual (PCR) NEGATIVE (Negative) SARS-CoV-2 RNA (RT-PCR) NEGATIVE (Negative) Independent Interpretation I performed an independent interpretation of an: EKG and Plain X-Ray (RLLL opacity) Interpretation: Rate: 113 Rhythm: sinus tachycardia [place]: normal Normal P waves. Normal [place]. Normal QRS complex. ST T wave : normal no ARLIN qTC: 452 prior studies: no acute ischemia The study has been interpreted contemporaneously by me. . Radiology Impression Discussion of test interpretation with radiology: I have reviewed the radiologist's reading. Radiologist Impression: XR chest 1V IMPRESSION: * The lungs are markedly hypoinflated and lower lobes are poorly evaluated. If dyspnea continues, recommend obtaining PA and lateral chest radiographs during maximal inspiratory effort * No evidence of pulmonary edema, pleural effusion or pneumothorax. Dictated By: Faustino Crow MD Independent Historian Clinical information obtained from an independent historian. History obtained from or confirmed by: EMS External Record Review External record reviewed: Inpatient record Discharge Plan Discharge Clinical Impression: Acute hypokalemia, Community acquired pneumonia Asthma with exacerbation Qualifiers: Asthma severity: moderate Asthma persistence: persistent Qualified Code(s): J 45.41 - Moderate persistent asthma with (acute) exacerbation Patient Disposition: Home, Self-Care Instructions: Asthma (ED), Hypokalemia (ED), Pneumonia (ED) Additional Instructions: finish all medications. continue your inhaler and nebulizer. return for worsening breathing, pain, inability to ambulate, fainting or any other concerns. take antibiotics with full meal and glass of water Prescriptions: New doxycycline hyclate 100 mg capsule 100 mg PO BID 7 Days Qty: 14 0RF prednisone 20 mg tablet 40 mg PO DAILY 5 Days Qty: 10 0RF cefuroxime axetil 500 mg tablet 500 mg PO BID 7 Days Qty: 14 0RF No Action Humira(CF) Pen 40 mg/0.4 mL pen injector kit 40 mg subcut Q2W Stand Alone Forms: Work/School Release Print Language: Turkmen
[2024-03-27 05:02] LABS: Basophils Percent Auto 0.2 % (0-2); Eosinophils Absolute Auto 0.1 X10*3/uL (0.0-0.4); Eosinophils Percent Auto 1.2 % (0-4); Hematocrit 37.3 % (37.0-47.0); Hemoglobin 11.8 g/dl (12.0-16.0); Imm Gran Abs Auto 0.03 X10*3/uL (0.00-0.03); Imm Gran Pct Auto 0.3 % (0.0-0.4); Lymphocytes Absolute Auto 2.9 X10*3/uL (1.2-4.9); Lymphocytes Percent Auto 26.8 % (20-40); MANUAL DIFF FLAG NO; Mean Corpuscular HGB Conc 31.6 g/dl (31.0-35.0); Mean Corpuscular Hemoglobin 23.5 pg (27.0-33.0); Mean Corpuscular Volume 74.2 fL (80.0-98.0); Mean Platelet Volume 9.6 fL (9.4-12.3); Monocytes Absolute Auto 1.3 X10*3/uL (0.1-1.2); Monocytes Percent Auto 12.1 % (2-11); Neutrophils Absolute Auto 6.5 x10*3/uL (2.0-8.3); Neutrophils Percent Auto 59.4 % (45-73); Platelet Count 378 X10*3/uL (160-400); Red Blood Count 5.03 X10*6/uL (4.20-5.50); Red Cell Distribution Width 15.6 % (11.0-16.0); White Blood Count 10.9 X10*3/uL (4.8-10.8)
[2024-03-27] MEDS: Magnesium Sulfate/H2O 2 GM/50 ML PIGGYBACK IV (05:03)
[2024-03-27] MEDS: methylPREDNISolone Sod Succ 125 MG/2 ML VIAL IVPUSH (05:03)
[2024-03-27] MEDS: guaiFEN/Codeine SF 200/20/10ML 10 ML LIQUID 5 ML PO (05:09)
[2024-03-27] MEDS: Albuterol Sulfate 5 MG, Albuterol Sulfate (0.083%) 2.5 MG 7.5 MG INHALE (05:11)
[2024-03-27 05:12] VITALS: PULSE 108; RESP 28; O2SAT 99
[2024-03-27 05:16] LABS: D Dimer High Sensitivity < 150 NG/ML
[2024-03-27 05:17] VITALS: BP 119/71; PULSE 118; RESP 22; O2SAT 96
[2024-03-27 05:23] LABS: Alanine Aminotransferase 16 U/L (0-31); Albumin Level 3.9 g/dL (3.5-5.0); Alkaline Phosphatase 64 U/L (39-117); Anion Gap 15 (12-20); Aspartate Amino Transferase 18 U/L (5-31); Bilirubin Direct 0.1 mg/dL (0.0-0.5); Bilirubin Total 0.3 mg/dL (0.0-1.0); Blood Urea Nitrogen 7 mg/dL (9-16); Calcium 8.8 mg/dL (8.4-10.2); Carbon Dioxide 20 mmol/L (22-29); Chloride 107 mmol/L (96-108); Creatinine Clr Calc Pharmacy 121.7; Estimated Glomerular Filt Rate > 60; Glucose Random 100 mg/dL (60-115); HCG Quantitative < 2 mIU/mL; Magnesium 1.6 mg/dL (1.6-2.6); Potassium 3.2 mmol/L (3.3-5.1); Sodium 139 mmol/L (135-145); Total Protein 7.7 g/dL (6.5-8.0); Troponin-I High Sensitivity < 2.7 ng/L (<3.5-17.0)
[2024-03-27 06:01] LABS: Influenza A PCR NEGATIVE (Negative); Influenza B PCR NEGATIVE (Negative); Resp Syncy Virus RNA Qual PCR NEGATIVE (Negative); SARS COV2 PCR INHOUSE NEGATIVE (Negative)
[2024-03-27] MEDS: Potassium Chloride Packet 20 MEQ PACKET 40 MEQ PO (06:43)
[2024-03-27 07:20] VITALS: BP 124/69; PULSE 109; RESP 25; TEMP 36.8; O2SAT 100
[2024-03-27] MEDS: cefuroxime axetiL 500 MG TABLET PO (08:41)
[2024-03-27] MEDS: Doxycycline Monohydrate 100 MG CAPSULE PO (08:41)
[2024-03-27 08:42] VITALS: BP 124/69; PULSE 102; RESP 20; TEMP 36.8; O2SAT 100
== END 2024-03-27 08:43 | disposition home or self-care (01) ==
PROVIDERS: Emergency Medicine; Emergency Provider Emergency Medicine Emergency Medical Services; PCP Nurse Practitioner Family
DX: J45.41 Moderate persistent asthma with (acute) exacerbation (principal); J18.9 Pneumonia, unspecified organism; E87.6 Hypokalemia
CPT/HCPCS: 0241U; 36415; 71045; 80048; 80076; 83735; 84484; 84702; 85025; 85379; 93005; 94640; 96365; 96375; 99284; 99285; J2919; J3475

== ENCOUNTER → 2024-03-27 04:51 | Outpatient (BNV) | payer OTHER, SELFPAY | PROVIDERS: Emergency Provider Emergency Medicine Emergency Medical Services; PCP Nurse Practitioner Family; Visit Provider Internal Medicine Cardiovascular Disease | DX: R94.31 Abnormal electrocardiogram [ECG] [EKG] (principal); R06.02 Shortness of breath | CPT/HCPCS: 93010 ==

== ENCOUNTER 2024-04-23 08:10 | Outpatient (AMB) | payer OTHER, SELFPAY ==
[2024-04-23 16:28] VITALS: BMI 37.2
--- NOTE | 2024-04-23 16:28 | A.OFFVIS_ITS ---
VS Expanded 04/23/24 16:28 Height 5 ft 4.5 in Weight 220 lb BMI 37.2 Body Fat % 36.8 Body Fat Mass 81 Fat Free Mass 138.8 Visceral Fat Rating 8 Body Water % 45.3 Body Water Mass 99.6 Basal Metabolic Rate/Score 1,934 Intake Visit Reasons: [employer] BMI 37.2 Allergies No Known Allergies [No Known Allergies*] Allergy (Verified 04/23/24 16:29) Medication List - Last Reconciled 04/23/24 by Steven Gómez MD adalimumab (Humira(CF) Pen) 40 mg subcut Q2W HPI HPI [employer] BMI 37.2: Details: Start time: 2pm, End time: 2.45pm ?I spent 40 minutes speaking with the patient on the phone plus an additional 5 minutes reviewing and updating records for a total of 45 minutes HPI Comments Details: Previous weight loss efforts: self diets Works overnight 11pm-7am and these days sleeps during the day. Breakfast: skips Lunch: meat, rice, beans Dinner: same as lunch Snacks: 2 snacks including sandwiches Exercise: Has a gym membership Fluids: Coffee occasionally, tea: none, soda: regular coke, juice: none, ETOH: none PFSH Medical History (Updated 04/23/24 @ 16:33 by Steven Gómez MD) BMI 37.0-37.9, adult Obesity KYLE (obstructive sleep apnea) Asthma Crohn's disease Biliary colic Gallstones Surgical History Hx laparoscopic cholecystectomy (03/16/23) H/O colonoscopy Family History Daughter Liver cancer Social History Alcohol intake: never Patient Tobacco Use Status: Never used Tobacco Telehealth Telehealth Telehealth Platform: Telephone Location of provider rendering services: practice address Location of patient: address on file Patient Identification confirmed using: Name, : Yes Telehealth method: voice only Patient verbally consented to treatment: Yes Patient verbally consented to billing insurance company: Yes Patient informed of any privacy concerns related to visit: Yes Minutes spent on Phone/Video with Pt.: 45 Assessment & Plan Assessment & Plan (1) Obesity: Code(s): E66.9 - Obesity, unspecified Category: Medical Qualifiers: Obesity type: due to excess calories Obesity classification: adult class 2 (BMI 35 - 39.9) Serious obesity comorbidity presence: with serious comorbidity Body mass index: BMI 37.0-37.9 Qualified Code(s): E66.01 - Morbid (severe) obesity due to excess calories; Z68.37 - Body mass index [BMI] 37.0- 37.9, adult Plan: 1.? Plan for lap sleeve gastrectomy. If diaphragmatic or ventral hernias are present at time of surgery, these will be repaired laparoscopically as well. Risks and complications include possible conversion to an open procedure, anastomotic leak, bleeding requiring transfusion, small bowel obstruction, , DVT and pulmonary embolism, cardiac, or pulmonary complications, as joint terminal attack controller complications such as anastomotic ulcer, insufficient weight loss and vitamin deficiencies. I emphasized the importance of close follow-up, adherence to instructions and good communication. 2. You will receive a link of our software javier to generate an individualized nutritional and exercise plan specific for you. Please send me a screenshot of the plans you will generate Meal to include lean meat (beef, fish, pork, turkey, chicken), or irish yogurt, or egg whites, or beans with a salad with olive oil and fruits (berries, pears, apples, kiwi). Avoid salt, breads, potatoes, rice, pasta, desserts. ?3. If you choose shakes, each shake would be drunk slowly, like coffee in a period of 2 hours. ?4. If you choose bars, cut each bar in 4 pieces and eat each piece in 30min ?to make each bar last 2 hours. ?5. I emphasized the importance of measuring accurately the food portion and measure it when serving the food in plate ?6. The meal portions include a specific number of forks of meat and salad. You always eat the meat portion but you can replace up to half of salad/vegetables portion with rice, potatoes or pasta, or a fruit ?if you like. The less you do it the better weight loss will be. ?7. One full-size fork is what it can be scooped on the fork without falling aside and not what can be bit with the fork. Use regular forks like those you find in a typical restaurant. ?8.? Please send me weight measurements as soon as possible and then once a week. Always include your diet and exercise plan. 9. The best choice would be to purchase a stationary bike, elliptical or treadmill at home that can track calories. Let me know if you do so I can give you an exercise plan. ?10.?It is important of avoiding and for at least 18 months postoperatively and has been discussed at the infosession. ?11. Goal is to lose at least 1.5-2lbs per week ?12. Goal to lose 10% of your weight before surgery, which is about 22lbs. Ultimate weight goal: 198lbs before surgery 13. Please follow the diet plan exactly without any change. If you don't like something about the plan or you feel hungry you need to communicate with me so I can help you revise the plan. You should not change the plan yourself. 14. To be scheduled for EGD due to history of GERD symptoms. The possibility of biopsies was discussed. Patient needs to avoid use of NSAIDs and aspirin for 1 week prior to EGD. Risks of perforation and? bleeding was discussed with the patient. This will be an outpatient procedure with IV sedation. Orders: Orders Insulin Today E66.9 - Obesity, unspecified, Z68.37 - Body mass index [BMI] 37.0-37.9, adult Hemoglobin A1c Today E66.9 - Obesity, unspecified, Z68.37 - Body mass index [BMI] 37.0-37.9, adult Lipid Panel Today E66.9 - Obesity, unspecified, Z68.37 - Body mass index [BMI] 37.0-37.9, adult IRON PROFILE Today E66.9 - Obesity, unspecified, Z68.37 - Body mass index [BMI] 37.0-37.9, adult Zinc Today E66.9 - Obesity, unspecified, Z68.37 - Body mass index [BMI] 37.0- 37.9, adult C Reactive Protein Today E66.9 - Obesity, unspecified, Z68.37 - Body mass index [BMI] 37.0-37.9, adult Vitamin B1 Today E66.9 - Obesity, unspecified, Z68.37 - Body mass index [BMI] 37.0-37.9, adult TSH reflex Free T4 Today E66.9 - Obesity, unspecified, Z68.37 - Body mass index [BMI] 37.0-37.9, adult XR chest 2V Today E66.9 - Obesity, unspecified, Z68.37 - Body mass index [BMI] 37.0-37.9, adult H Pylori Breath Test Today E66.9 - Obesity, unspecified, Z68.37 - Body mass index [BMI] 37.0-37.9, adult Complete Blood Count Auto Diff Today E66.9 - Obesity, unspecified, Z68.37 - Body mass index [BMI] 37.0-37.9, adult Comprehensive Met. Panel Today E66.9 - Obesity, unspecified, Z68.37 - Body mass index [BMI] 37.0-37.9, adult Vitamin B12 and Folate Today E66.9 - Obesity, unspecified, Z68.37 - Body mass index [BMI] 37.0-37.9, adult Vitamin A Today E66.9 - Obesity, unspecified, Z68.37 - Body mass index [BMI] 37.0-37.9, adult Ferritin Today E66.9 - Obesity, unspecified, Z68.37 - Body mass index [BMI] 37.0-37.9, adult Vitamin D 25-OH Total Today E66.9 - Obesity, unspecified, Z68.37 - Body mass index [BMI] 37.0-37.9, adult US abdomen comp w elastography Today E66.9 - Obesity, unspecified, Z68.37 - Body mass index [BMI] 37.0-37.9, adult ECG 12 lead EKG Today E66.9 - Obesity, unspecified, Z68.37 - Body mass index [BMI] 37.0-37.9, adult FL upper GI w air Today E66.9 - Obesity, unspecified, Z68.37 - Body mass index [BMI] 37.0-37.9, adult Referrals Nutrition/Dietitian Referral E66.9 - Obesity, unspecified, Z68.37 - Body mass index [BMI] 37.0-37.9, adult Behavioral Health Referral E66.9 - Obesity, unspecified, Z68.37 - Body mass index [BMI] 37.0-37.9, adult
== END 2024-04-23 16:43 | disposition home or self-care (01) ==
LOC: HO.HBS 08:10
PROVIDERS: PCP Nurse Practitioner Family; Visit Provider Surgery
DX: E66.01 Morbid (severe) obesity due to excess calories (principal); Z68.37 Body mass index [BMI] 37.0-37.9, adult
CPT/HCPCS: 99204

== ENCOUNTER → 2024-04-23 08:10 | Outpatient (BNVA) | payer OTHER, SELFPAY | PROVIDERS: PCP Nurse Practitioner Family; Visit Provider Surgery ==